=== PATIENT | male | born 1980 | race Caucasian/White ===

== ENCOUNTER 2017-02-11 20:37 | Emergency (ER) | payer MEDICAID ==
[~2017-02-11] VITALS: Ht 177.8 cm; Wt 75.5 kg
[~2017-02-11 20:37] MED LIST: AMLO10TA2 PO; AMLO5TAB4 PO; CALC0.25 PO; CLIN300C93 PO; CLON0.1T12 PO; DARB100V SQ; DARB60VI SQ; DOXY100T PO; ERGO500017 PO; ERTA1VIA IV; FLUC200T4 PO; FURO-93 PO; FURO20TA3 PO; FURO80TA3 PO; HUM100VI SQ-INSULIN; HUM100VI6 SQ-INSULIN; HYDR-3138 PO; HYDR-3240 PO; HYDR-3241 PO; INSU100C SQ-INSULIN; INSU100V13 SC; INSU100V13 SQ; INSU100V8 SQ; INSULIN 70/30 INJ; INSULIN REG INJ; LISI-167 PO; LISI-170 PO; LISI40TA PO; LOSA50TA2 PO; MINO2.5T PO; ONDA4TAB7 PO; OXYC-229 PO; OXYC5TAB3 PO; PANT40TA5 PO; POLY17PO5 PO; POTA20TA14 PO; SEVE800T PO; SEVE800T8 PO; TRAM-28 PO; TRAM50TA2 PO; [UNRECOGNIZED DRUG - OTHER]
[2017-02-11] MEDS ORDERED: MORPHINE SULFATE 4 MG/ML, 1ML ONE ×2 (21:29→21:55)
[2017-02-11] MEDS ORDERED: ONDANSETRON 2MG/ML, 2ML ONE (21:29)
[2017-02-11] MEDS ORDERED: ONDANSETRON 2MG/ML, 2ML IVPush ONE (21:30)
[2017-02-11] MEDS: MORPHINE SULFATE 4 MG/ML, 1ML IVPush PRN ×2 (21:33→22:10)
[2017-02-11 21:43] LABS: BLOOD UREA NITROGEN 50 mg/dL (7-18)
[2017-02-11 21:49] LABS: ASPARTATE AMINO TRANSFERASE 28 U/L (15-37)
[2017-02-11] MEDS ORDERED: LIDOCAINE 1%, 20ML ONE (23:44)
[2017-02-11 23:54] VITALS: BP 139/86
== END 2017-02-12 00:43 | disposition home or self-care (01) ==
LOC: ED 02-12 00:37
DX: R18.8 Other ascites (principal); E11.22 Type 2 diabetes mellitus with diabetic chronic kidney disease; I13.2 Hypertensive heart and chronic kidney disease with heart failure and with stage 5 chronic kidney disease, or end stage renal disease; I50.9 Heart failure, unspecified; Z99.2 Dependence on renal dialysis; Z88.8 Allergy status to other drugs, medicaments and biological substances
CPT/HCPCS: 36415; 49082; 71010; 76700; 80053; 83690; 85025; 96374; 96375; 96376; 99285; J2405

== ENCOUNTER 2017-02-15 03:19 | Inpatient (IN) | payer MEDICAID ==
[~2017-02-15] VITALS: Ht 177.8 cm; Wt 67.9 kg
[2017-02-15] MEDS ORDERED: SODIUM CHLORIDE FLUSH 10ML SYR IVF ONE (04:30)
[2017-02-15] MEDS ORDERED: ONDANSETRON 2MG/ML, 2ML IVPush ONE (05:00)
[2017-02-15] MEDS ORDERED: ASPIRIN 81 MG TABLET CHEW PO ONE (05:00)
[2017-02-15] MEDS: MORPHINE SULFATE 4 MG/ML, 1ML IVPush PRN ×2 (05:08→06:33)
[2017-02-15] MEDS: NITROGLYCERIN SINGLE TAB 0.4 MG SL PRN ×2 (05:08→08:08)
[2017-02-15 05:21] LABS: BLOOD UREA NITROGEN 99 mg/dL (7-18)
[2017-02-15 05:22] LABS: ASPARTATE AMINO TRANSFERASE 18 U/L (15-37)
[2017-02-15 05:31] LABS: IS PT STATUS REG ER OR PRE ER? YES
[2017-02-15] MEDS ORDERED: SODIUM CHLORIDE 0.9% 1,000 ML IV ONE (05:57)
[2017-02-15] MEDS ORDERED: SODIUM POLY SULFONATE UDC 15 GM/60 ML PO ONE (06:00)
[2017-02-15] MEDS ORDERED: ALBUTEROL 0.5%, 20ML NPPB ONE (06:00)
[2017-02-15] MEDS ORDERED: SODIUM BICARB 8.4%, 50ML SYRINGE IVPush ONE (06:00)
[2017-02-15] MEDS ORDERED: INSULIN REGULAR 100 UNITS/ML, 3ML VIAL IVPush ONE (06:00)
[2017-02-15] MEDS ORDERED: DEXTROSE 50%, 50ML SYRINGE IVPush ONE (06:00)
[2017-02-15] MEDS ORDERED: CALCIUM CHLORIDE 10%, 10ML SYR IVPush ONE (06:00)
[2017-02-15] MEDS ORDERED: SODIUM CHLORIDE 0.9% 1,000ML IVBOLUS ONE (06:00)
[2017-02-15] MEDS ORDERED: FUROSEMIDE 40 MG/4 ML IVPush ONE (06:00)
[2017-02-15] MEDS ORDERED: DEXTROSE 50%, 50ML VIAL ONE (06:12)
[2017-02-15] MEDS ORDERED: CALCIUM CHLORIDE 10%, 10ML SYR ONE (06:12)
[2017-02-15] MEDS ORDERED: SODIUM POLYSTYRENE SULFONATE ORAL SUSP ONE (06:13)
[2017-02-15] MEDS ORDERED: FUROSEMIDE 40 MG/4 ML ONE (06:13)
[2017-02-15] MEDS ORDERED: INSULIN REGULAR 100 UNITS/ML, 3ML VIAL ONE (06:14)
[2017-02-15] MEDS ORDERED: MORPHINE SULFATE 4 MG/ML, 1ML ONE (06:32)
[2017-02-15] MEDS ORDERED: ONDANSETRON 2MG/ML, 2ML IVPush PRN (07:30)
[2017-02-15] MEDS ORDERED: BISACODYL 10 MG SUPP PR PRN (07:30)
[2017-02-15] MEDS ORDERED: ACETAMINOPHEN 325 MG TABLET PO PRN (07:30)
[2017-02-15] MEDS ORDERED: ONDANSETRON ODT 4 MG PO PRN (07:30)
[2017-02-15] MEDS ORDERED: DOCUSATE 100 MG CAPSULE PO PRN (07:30)
[2017-02-15] MEDS ORDERED: DIPHENHYDRAMINE 12.5MG/5ML, 10ML UDC PO PRN (07:30)
[2017-02-15] MEDS ORDERED: DIPHENHYDRAMINE 25 MG CAPSULE PO PRN (07:30)
[2017-02-15] MEDS ORDERED: NITROGLYCERIN SINGLE TAB 0.4 MG SL ONE (08:06)
[2017-02-15] MEDS: HEPARIN 5,000 UNITS/ML, 1ML SQ SCH ×2 (09:00→15:08)
[2017-02-15 09:10] VITALS: BP 224/113
[2017-02-15 12:11] LABS: BLOOD UREA NITROGEN 66 mg/dL (7-18)
[2017-02-15 13:14] LABS: HEP B SURF. AB 94.3 mIU/mL (0.0-10.0)
[2017-02-15 14:30] VITALS: BP 148/80
[2017-02-15] MEDS: LABETALOL 5MG/ML, 20ML IVPush PRN ×2 (15:08→23:23)
[2017-02-15] MEDS: INSULIN ASPART 100 UNITS/ML, PEN SQ-INSULIN SCH ×2 (16:00→23:23)
[2017-02-15 17:37] LABS: BLOOD UREA NITROGEN 55 mg/dL (7-18)
[2017-02-15 22:21] VITALS: BP 172/90
[2017-02-15] MEDS ORDERED: OXYcodone IR 5MG TABLET PO PRN (23:00)
[2017-02-16] MEDS: HEPARIN 5,000 UNITS/ML, 1ML SQ SCH ×4 (02:23→22:53)
[2017-02-16 02:24] VITALS: BP 145/78
[2017-02-16] MEDS ORDERED: morphine SULFATE 10 MG/ML, 1ML IVPush ONE (03:30)
[2017-02-16 06:54] VITALS: BP 131/73
[2017-02-16] MEDS: INSULIN ASPART 100 UNITS/ML, PEN SQ-INSULIN SCH ×4 (07:00→20:52)
[2017-02-16] MEDS ORDERED: MORPHINE SULFATE 4 MG/ML, 1ML IVPush ONE ×2 (09:00→21:30)
[2017-02-16] MEDS: AMLODIPINE 5 MG TABLET PO SCH (09:01)
[2017-02-16 14:00] VITALS: BP 128/74
[2017-02-16] MEDS ORDERED: ACETAMINOPHEN 325 MG TABLET PO PRN (19:30)
[2017-02-16] MEDS ORDERED: BISACODYL 10 MG SUPP PR PRN (19:30)
[2017-02-16] MEDS ORDERED: DIPHENHYDRAMINE 12.5MG/5ML, 10ML UDC PO PRN (19:30)
[2017-02-16] MEDS ORDERED: ONDANSETRON ODT 4 MG PO PRN (19:30)
[2017-02-16] MEDS ORDERED: DOCUSATE 100 MG CAPSULE PO PRN (19:30)
[2017-02-16 20:37] VITALS: BP 161/86
[2017-02-16 20:54] VITALS: BP 186/93
[2017-02-16 22:54] VITALS: BP 146/86
[2017-02-17 01:36] VITALS: BP 154/85
[2017-02-17 07:06] VITALS: BP 150/80
[2017-02-17] MEDS: AMLODIPINE 5 MG TABLET PO SCH (10:22)
[2017-02-17] MEDS: HEPARIN 5,000 UNITS/ML, 1ML SQ SCH (10:22)
[2017-02-17] MEDS: INSULIN ASPART 100 UNITS/ML, PEN SQ-INSULIN SCH (10:22)
== END 2017-02-17 11:20 | disposition home or self-care (01) | DRG 291 ==
LOC: ED 05:16 → EDIP 07:07 → 4EST 08:33
PROVIDERS: ADMIT Internal Medicine; ATTEND Internal Medicine
PROC: 5A1D60Z (ICD-10-PCS; principal; 2017-02-15)
DX: I13.2 Hypertensive heart and chronic kidney disease with heart failure and with stage 5 chronic kidney disease, or end stage renal disease (principal); N18.6 End stage renal disease; E10.22 Type 1 diabetes mellitus with diabetic chronic kidney disease; E10.65 Type 1 diabetes mellitus with hyperglycemia; D63.1 Anemia in chronic kidney disease; N25.0 Renal osteodystrophy; I50.9 Heart failure, unspecified; Z89.511 Acquired absence of right leg below knee; Z90.49 Acquired absence of other specified parts of digestive tract; Z79.899 Other long term (current) drug therapy; Z79.4 Long term (current) use of insulin; Z88.8 Allergy status to other drugs, medicaments and biological substances; Z91.19 Patient's noncompliance with other medical treatment and regimen; Z99.2 Dependence on renal dialysis
CPT/HCPCS: 36415; 71010; 80048; 80053; 82962; 83880; 84484; 85025; 85610; 86704; 86706; 87340; 93005; 96374; 96375; J1644; J1815; J1940; J2405; J2270; J7030

== ENCOUNTER 2017-03-22 20:09 | Inpatient (IN) | payer MEDICAID ==
[~2017-03-22] VITALS: Ht 177.8 cm; Wt 70.6 kg
[~2017-03-22 20:09] MED LIST changes: +CLIN300C8 PO; -CLIN300C93 PO; -HYDR-3138 PO; +HYDR-3237 PO; -OXYC-229 PO; +OXYC-307 PO; -SEVE800T PO; +SEVE800T7 PO; -TRAM-28 PO; +TRAM-47 PO
[2017-03-22] MEDS ORDERED: SODIUM CHLORIDE FLUSH 10ML SYR IVF ONE (21:00)
[2017-03-22 21:37] LABS: HEMATOCRIT 38.7 % (39.2-51.8); HEMOGLOBIN 12.6 g/dL (13.7-18.0); WHITE BLOOD COUNT 6.5 x10^3/uL (3.4-10)
[2017-03-22] MEDS ORDERED: HYDROmorphone 1 MG/ML, 1ML ONE (21:47)
[2017-03-22 21:50] LABS: ASPARTATE AMINO TRANSFERASE 24 U/L (15-37); BLOOD UREA NITROGEN 55 mg/dL (7-18)
[2017-03-22 21:57] LABS: IS PT STATUS REG ER OR PRE ER? YES
[2017-03-22] MEDS ORDERED: HYDROmorphone 1 MG/ML, 1ML IM ONE (22:00)
[2017-03-22] MEDS ORDERED: ONDANSETRON ODT 4 MG PO ONE (22:00)
[2017-03-22] MEDS ORDERED: OXYcodone/APAP 5/325MG TABLET PO ONE (22:00)
[2017-03-22] MEDS ORDERED: MORPHINE SULFATE 4 MG/ML, 1ML IVPush PRN (23:00)
[2017-03-22] MEDS ORDERED: ONDANSETRON 2MG/ML, 2ML IVPush PRN ×2 (23:00→23:30)
[2017-03-22] MEDS ORDERED: hydrALAzine 20 MG/ML, 1ML IVPush PRN (23:30)
[2017-03-22] MEDS ORDERED: TEMPLATE NON-FORMULARY MED. (Insulin Lispro** (Humalog**) 0 UNITS) SQ-INSULIN SCH (23:30)
[2017-03-22] MEDS ORDERED: BISACODYL 10 MG SUPP PR PRN (23:30)
[2017-03-22] MEDS: SEVELAMER 800MG TABLET PO SCH (23:30)
[2017-03-22] MEDS ORDERED: ACETAMINOPHEN 325 MG TABLET PO PRN (23:30)
[2017-03-22] MEDS: SODIUM CHLORIDE FLUSH 10ML SYR IVF SCH (23:30)
[2017-03-22] MEDS ORDERED: POLYETHYLENE GLYCOL 17 GM PACKET PO PRN (23:30)
[2017-03-22] MEDS ORDERED: MORPHINE SULFATE 4 MG/ML, 1ML ONE (23:38)
[2017-03-23] MEDS: INSULIN ASPART 100 UNITS/ML, PEN SQ-INSULIN SCH ×5 (00:30→21:00)
[2017-03-23] MEDS ORDERED: ERGOCALCIFEROL 50,000 UNIT CAPSULE PO SCH (00:40)
[2017-03-23 01:38] VITALS: BP 150/90
[2017-03-23] MEDS: HEPARIN 5,000 UNITS/ML, 1ML SQ SCH ×4 (01:46→23:30)
[2017-03-23] MEDS: SEVELAMER 800MG TABLET PO SCH ×4 (01:46→17:43)
[2017-03-23] MEDS: morphine SULFATE 10 MG/ML, 1ML IVPush PRN ×3 (01:46→13:50)
[2017-03-23] MEDS: LOSARTAN 50MG TABLET PO SCH ×2 (01:46→23:22)
[2017-03-23 05:45] LABS: HEMATOCRIT 37.4 % (39.2-51.8); HEMOGLOBIN 12.4 g/dL (13.7-18.0); WHITE BLOOD COUNT 6.5 x10^3/uL (3.4-10)
[2017-03-23 06:06] LABS: ASPARTATE AMINO TRANSFERASE 49 U/L (15-37); BLOOD UREA NITROGEN 57 mg/dL (7-18)
[2017-03-23] MEDS: FUROSEMIDE 20 MG TABLET PO SCH (08:23)
[2017-03-23] MEDS: SENNA/DOCUSATE TABLET PO SCH (08:24)
[2017-03-23] MEDS: SODIUM CHLORIDE FLUSH 10ML SYR IVF SCH ×2 (08:24→23:22)
[2017-03-23 08:29] VITALS: BP 138/83
[2017-03-23] MEDS ORDERED: LIDOCAINE 1%, 20ML ONE (08:54)
[2017-03-23 10:25] LABS: IS PT STATUS REG ER OR PRE ER? NO
[2017-03-23 13:30] VITALS: BP 91/63
[2017-03-23] MEDS: DIPHENHYDRAMINE 25 MG CAPSULE PO PRN (13:52)
[2017-03-23] MEDS ORDERED: OXYcodone/APAP 5/325MG TABLET PO PRN (17:00)
[2017-03-23 20:00] VITALS: BP 122/73
[2017-03-24 01:02] VITALS: BP 154/87
[2017-03-24 05:35] LABS: BLOOD UREA NITROGEN 30 mg/dL (7-18)
[2017-03-24] MEDS: INSULIN ASPART 100 UNITS/ML, PEN SQ-INSULIN SCH ×2 (07:00→12:25)
[2017-03-24 07:05] VITALS: BP 116/70
[2017-03-24] MEDS: SEVELAMER 800MG TABLET PO SCH ×2 (07:57→11:27)
[2017-03-24] MEDS: SENNA/DOCUSATE TABLET PO SCH (07:57)
[2017-03-24] MEDS: HEPARIN 5,000 UNITS/ML, 1ML SQ SCH (07:57)
[2017-03-24] MEDS: FUROSEMIDE 20 MG TABLET PO SCH (07:57)
[2017-03-24] MEDS: SODIUM CHLORIDE FLUSH 10ML SYR IVF SCH (07:57)
[2017-03-24] MEDS: DIPHENHYDRAMINE 25 MG CAPSULE PO PRN (11:34)
[2017-03-24 12:39] VITALS: BP 156/84
[2017-03-25] MEDS ORDERED: CALCITRIOL 0.25 MCG CAPSULE PO SCH
== END 2017-03-24 15:00 | disposition home or self-care (01) | DRG 291 ==
LOC: ED 22:52 → EDIP 23:00 → 4EST 03-23 00:34
PROVIDERS: ADMIT Internal Medicine; ATTEND Internal Medicine
PROC: 0W9G3ZZ Drainage of Peritoneal Cavity, Percutaneous Approach (ICD-10-PCS; 2017-03-23)
PROC: 5A1D00Z (ICD-10-PCS; principal; 2017-03-24)
DX: I13.2 Hypertensive heart and chronic kidney disease with heart failure and with stage 5 chronic kidney disease, or end stage renal disease (principal); N18.6 End stage renal disease; E11.22 Type 2 diabetes mellitus with diabetic chronic kidney disease; R18.8 Other ascites; E44.0 Moderate protein-calorie malnutrition; N25.81 Secondary hyperparathyroidism of renal origin; E87.1 Hypo-osmolality and hyponatremia; K76.0 Fatty (change of) liver, not elsewhere classified; I50.42 Chronic combined systolic (congestive) and diastolic (congestive) heart failure; J98.11 Atelectasis; D63.1 Anemia in chronic kidney disease; N25.0 Renal osteodystrophy; E83.51 Hypocalcemia; Z68.22 Body mass index [BMI] 22.0-22.9, adult; E55.9 Vitamin D deficiency, unspecified; E87.5 Hyperkalemia; G89.29 Other chronic pain; I35.0 Nonrheumatic aortic (valve) stenosis; I73.9 Peripheral vascular disease, unspecified; Z79.4 Long term (current) use of insulin; Z82.49 Family history of ischemic heart disease and other diseases of the circulatory system; Z83.3 Family history of diabetes mellitus; Z86.14 Personal history of Methicillin resistant Staphylococcus aureus infection; Z89.511 Acquired absence of right leg below knee; Z88.8 Allergy status to other drugs, medicaments and biological substances; Z90.49 Acquired absence of other specified parts of digestive tract; Z91.15 Patient's noncompliance with renal dialysis; Z91.19 Patient's noncompliance with other medical treatment and regimen; Z99.2 Dependence on renal dialysis
CPT/HCPCS: 36415; 49083; 71010; 76700; 80048; 80053; 82962; 83036; 83690; 83880; 84484; 85025; 93005; J1170; J1644; J1815; J2405; J3490; J2270; Q0163

== ENCOUNTER 2017-03-26 22:10 | Emergency (ER) | payer MEDICAID ==
[~2017-03-26] VITALS: Ht 177.8 cm; Wt 73.3 kg
[2017-03-26] MEDS ORDERED: HYDROcodone/APAP 5/325 TABLET PO ONE (23:30)
[2017-03-26] MEDS ORDERED: NITROGLYCERIN OINT 2%, 1GM TP ONE ×2 (23:30→23:44)
[2017-03-26 23:33] LABS: HEMOGLOBIN 12.3 g/dL (13.7-18.0); WHITE BLOOD COUNT 6.2 x10^3/uL (3.4-10)
[2017-03-26 23:40] LABS: BLOOD UREA NITROGEN 81 mg/dL (7-18)
[2017-03-26] MEDS ORDERED: HYDROcodone/APAP 5/325 TABLET ONE (23:44)
[2017-03-27] MEDS ORDERED: DEXTROSE 50%, 50ML VIAL IVPush ONE (01:30)
[2017-03-27] MEDS ORDERED: INSULIN REGULAR 100 UNITS/ML, 3ML VIAL IVPush ONE (01:30)
[2017-03-27] MEDS ORDERED: SODIUM POLYSTYRENE SULFONATE ORAL SUSP PO ONE (01:30)
[2017-03-27] MEDS ORDERED: DEXTROSE 50%, 50ML VIAL ONE (01:49)
[2017-03-27] MEDS ORDERED: INSULIN REGULAR 100 UNITS/ML, 3ML VIAL ONE (01:49)
[2017-03-27] MEDS ORDERED: SODIUM POLYSTYRENE SULFONATE ORAL SUSP ONE (01:49)
[2017-03-27 02:15] VITALS: BP 148/85
== END 2017-03-27 02:47 | disposition home or self-care (01) ==
LOC: ED 22:42
DX: R07.89 Other chest pain (principal); E87.5 Hyperkalemia; I12.0 Hypertensive chronic kidney disease with stage 5 chronic kidney disease or end stage renal disease; E11.22 Type 2 diabetes mellitus with diabetic chronic kidney disease; N18.6 End stage renal disease; E11.65 Type 2 diabetes mellitus with hyperglycemia; Z79.4 Long term (current) use of insulin; Z90.49 Acquired absence of other specified parts of digestive tract
CPT/HCPCS: 36415; 71010; 80048; 82040; 85025; 93005; 96374; 96375

== ENCOUNTER 2017-04-01 00:15 | Emergency (ER) | payer MEDICAID ==
[~2017-04-01] VITALS: Ht 177.8 cm; Wt 76.2 kg
[2017-04-01 01:12] LABS: HEMATOCRIT 35.5 % (39.2-51.8); HEMOGLOBIN 11.7 g/dL (13.7-18.0); WHITE BLOOD COUNT 7.5 x10^3/uL (3.4-10)
[2017-04-01 01:23] LABS: BLOOD UREA NITROGEN 81 mg/dL (7-18)
[2017-04-01] MEDS ORDERED: SODIUM POLYSTYRENE SULFONATE ORAL SUSP ONE (01:48)
[2017-04-01 01:50] VITALS: BP 179/94
[2017-04-01] MEDS ORDERED: SODIUM POLYSTYRENE SULFONATE ORAL SUSP PO ONE (02:00)
== END 2017-04-01 02:05 | disposition home or self-care (01) ==
LOC: ED 00:34
DX: E11.65 Type 2 diabetes mellitus with hyperglycemia (principal); E11.22 Type 2 diabetes mellitus with diabetic chronic kidney disease; I12.0 Hypertensive chronic kidney disease with stage 5 chronic kidney disease or end stage renal disease; N18.6 End stage renal disease; Z79.4 Long term (current) use of insulin; Z87.891 Personal history of nicotine dependence; Z89.511 Acquired absence of right leg below knee; Z90.49 Acquired absence of other specified parts of digestive tract; Z99.2 Dependence on renal dialysis
CPT/HCPCS: 36415; 80048; 82040; 85025; 87040; 93005; 99285

== ENCOUNTER 2017-04-05 11:18 | Emergency (ER) | payer MEDICAID ==
[~2017-04-05] VITALS: Ht 177.8 cm; Wt 77.0 kg
[2017-04-05 12:10] LABS: HEMATOCRIT 32.7 % (39.2-51.8); HEMOGLOBIN 10.6 g/dL (13.7-18.0); WHITE BLOOD COUNT 6.9 x10^3/uL (3.4-10)
[2017-04-05 12:16] LABS: BLOOD UREA NITROGEN 50 mg/dL (7-18)
[2017-04-05 12:24] LABS: IS PT STATUS REG ER OR PRE ER? YES
[2017-04-05] MEDS ORDERED: morphine SULFATE 10 MG/ML, 1ML IVPush ONE (12:30)
[2017-04-05] MEDS ORDERED: MORPHINE SULFATE 4 MG/ML, 1ML ONE (12:45)
[2017-04-05 14:08] VITALS: BP 190/102
== END 2017-04-05 14:11 | disposition home or self-care (01) ==
LOC: ED 12:07
DX: I12.9 Hypertensive chronic kidney disease with stage 1 through stage 4 chronic kidney disease, or unspecified chronic kidney disease (principal); E11.22 Type 2 diabetes mellitus with diabetic chronic kidney disease; N18.9 Chronic kidney disease, unspecified; E87.70 Fluid overload, unspecified; Z89.511 Acquired absence of right leg below knee; Z99.2 Dependence on renal dialysis
CPT/HCPCS: 36415; 71010; 80048; 82040; 83735; 83880; 84484; 85025; 85610; 85730; 93005; 93970; 96372; 99285; J2270

== ENCOUNTER 2017-04-06 13:36 | Emergency (ER) | payer MEDICAID ==
[~2017-04-06] VITALS: Ht 177.8 cm; Wt 68.2 kg
[2017-04-06 14:40] LABS: HEMATOCRIT 31.1 % (39.2-51.8); HEMOGLOBIN 10.1 g/dL (13.7-18.0); WHITE BLOOD COUNT 6.5 x10^3/uL (3.4-10)
[2017-04-06 14:50] LABS: ASPARTATE AMINO TRANSFERASE 17 U/L (15-37); BLOOD UREA NITROGEN 66 mg/dL (7-18)
[2017-04-06 15:53] VITALS: BP 144/78
== END 2017-04-06 16:49 | disposition home or self-care (01) ==
LOC: ED 14:31
DX: I13.2 Hypertensive heart and chronic kidney disease with heart failure and with stage 5 chronic kidney disease, or end stage renal disease (principal); E11.22 Type 2 diabetes mellitus with diabetic chronic kidney disease; N18.6 End stage renal disease; I50.9 Heart failure, unspecified; E87.5 Hyperkalemia; G89.29 Other chronic pain; E87.70 Fluid overload, unspecified; Z90.49 Acquired absence of other specified parts of digestive tract; Z99.2 Dependence on renal dialysis
CPT/HCPCS: 36415; 71010; 80053; 83735; 83880; 85025; 93005; 99285

== ENCOUNTER 2017-04-28 22:13 | Inpatient (IN) | payer MEDICAID ==
[~2017-04-28] VITALS: Ht 172.7 cm; Wt 70.2 kg
[2017-04-28] MEDS ORDERED: ONDANSETRON 2MG/ML, 2ML IVPush ONE (22:30)
[2017-04-28] MEDS ORDERED: ONDANSETRON 2MG/ML, 2ML ONE (22:32)
[2017-04-28] MEDS ORDERED: HYDROmorphone 1 MG/ML, 1ML ONE ×2 (22:32→23:48)
[2017-04-28] MEDS: HYDROmorphone 1 MG/ML, 1ML IVPush PRN ×2 (22:37→23:50)
[2017-04-28 22:38] LABS: HEMATOCRIT 30.8 % (39.2-51.8); HEMOGLOBIN 10.3 g/dL (13.7-18.0); WHITE BLOOD COUNT 8.3 x10^3/uL (3.4-10)
[2017-04-28 23:29] LABS: ASPARTATE AMINO TRANSFERASE 21 U/L (15-37); BLOOD UREA NITROGEN 86 mg/dL (7-18)
[2017-04-28] MEDS ORDERED: DEXTROSE 50%, 50ML SYRINGE ONE (23:37)
[2017-04-28] MEDS ORDERED: CALCIUM CHLORIDE 10%, 10ML SYR ONE (23:37)
[2017-04-28] MEDS ORDERED: INSULIN REGULAR 100 UNITS/ML, 3ML VIAL ONE (23:38)
[2017-04-29] VITALS (8 sets, daily range): BP systolic 78–160; BP diastolic 46–81
[2017-04-29] MEDS ORDERED: ALBUTEROL 0.5%, 20ML NPPB ONE
[2017-04-29] MEDS ORDERED: CALCIUM CHLORIDE 10%, 10ML SYR IVPush ONE
[2017-04-29] MEDS ORDERED: INSULIN REGULAR 100 UNITS/ML, 3ML VIAL IVPush ONE
[2017-04-29] MEDS ORDERED: LABETALOL 5MG/ML, 20ML IVPush PRN
[2017-04-29] MEDS ORDERED: ONDANSETRON 2MG/ML, 2ML IVPush PRN
[2017-04-29] MEDS ORDERED: DOCUSATE 100 MG CAPSULE PO PRN
[2017-04-29] MEDS ORDERED: DEXTROSE 50%, 50ML SYRINGE IVPush ONE
[2017-04-29] MEDS: LOSARTAN 50MG TABLET PO SCH ×2 (00:30→21:00)
[2017-04-29] MEDS ORDERED: ERGOCALCIFEROL 50,000 UNIT CAPSULE PO SCH (00:30)
[2017-04-29] MEDS ORDERED: DEXTROSE 50%, 50ML SYRINGE IVPush STA (02:18)
[2017-04-29] MEDS ORDERED: DEXTROSE 50%, 50ML VIAL ONE (02:26)
[2017-04-29] MEDS ORDERED: GLUCAGON 1 MG IM PRN (02:30)
[2017-04-29] MEDS ORDERED: DEXTROSE 50%, 50ML SYRINGE IVPush PRN (02:30)
[2017-04-29] MEDS ORDERED: DEXTROSE 4 GM TAB.CHEW PO PRN (02:30)
[2017-04-29] MEDS: HEPARIN 5,000 UNITS/ML, 1ML SQ SCH ×3 (02:31→20:38)
[2017-04-29] MEDS: HYDROmorphone 2 MG/ML, 1ML IVPush PRN ×4 (05:13→21:56)
[2017-04-29 05:41] LABS: HEMATOCRIT 27.9 % (39.2-51.8); HEMOGLOBIN 9.2 g/dL (13.7-18.0); WHITE BLOOD COUNT 6.8 x10^3/uL (3.4-10)
[2017-04-29 05:52] LABS: BLOOD UREA NITROGEN 35 mg/dL (7-18)
[2017-04-29] MEDS: SEVELAMER 800MG TABLET PO SCH ×3 (07:00→16:51)
[2017-04-29] MEDS: INSULIN ASPART 100 UNITS/ML, PEN SQ-INSULIN SCH ×4 (07:00→20:11)
[2017-04-29] MEDS ORDERED: LIDOCAINE 1%, 20ML ONE (09:00)
[2017-04-29] MEDS: SODIUM CHLORIDE FLUSH 10ML SYR IVF SCH ×2 (09:21→20:38)
[2017-04-29] MEDS: ONDANSETRON 2MG/ML, 2ML IVPush PRN (19:14)
[2017-04-29] MEDS ORDERED: SODIUM CHLORIDE 0.9%, 500ML IVBOLUS ONE (19:30)
[2017-04-30] MEDS: HYDROmorphone 2 MG/ML, 1ML IVPush PRN ×5 (01:25→20:28)
[2017-04-30 01:29] VITALS: BP 137/80
[2017-04-30 01:33] VITALS: BP 128/78
[2017-04-30 05:57] VITALS: BP 152/85
[2017-04-30] MEDS: HEPARIN 5,000 UNITS/ML, 1ML SQ SCH ×3 (05:58→20:30)
[2017-04-30 06:10] LABS: HEMATOCRIT 26.8 % (39.2-51.8); WHITE BLOOD COUNT 5.6 x10^3/uL (3.4-10)
[2017-04-30 06:14] LABS: BLOOD UREA NITROGEN 50 mg/dL (7-18)
[2017-04-30] MEDS: INSULIN ASPART 100 UNITS/ML, PEN SQ-INSULIN SCH ×4 (07:00→20:30)
[2017-04-30] MEDS: SODIUM CHLORIDE FLUSH 10ML SYR IVF SCH ×2 (07:49→20:27)
[2017-04-30] MEDS: SEVELAMER 800MG TABLET PO SCH ×3 (07:49→15:40)
[2017-04-30 08:51] VITALS: BP 151/87
[2017-04-30] MEDS: ONDANSETRON 2MG/ML, 2ML IVPush PRN (10:32)
[2017-04-30] MEDS ORDERED: DARBEPOETIN 100 MCG/ML SQ SCH (11:30)
[2017-04-30 15:11] VITALS: BP 105/61
[2017-04-30] MEDS ORDERED: HYDROmorphone 1 MG/ML, 1ML ONE ×2 (15:21→20:22)
[2017-04-30 19:02] VITALS: BP 141/83
[2017-04-30] MEDS ORDERED: LOSARTAN 50MG TABLET PO SCH (21:00)
[2017-05-01] MEDS ORDERED: HYDROmorphone 1 MG/ML, 1ML ONE ×3 (01:30→09:43)
[2017-05-01] MEDS: HYDROmorphone 2 MG/ML, 1ML IVPush PRN ×3 (01:33→09:45)
[2017-05-01 01:41] VITALS: BP 106/67
[2017-05-01 05:29] LABS: HEMATOCRIT 27.2 % (39.2-51.8); HEMOGLOBIN 9.1 g/dL (13.7-18.0); WHITE BLOOD COUNT 5.9 x10^3/uL (3.4-10)
[2017-05-01] MEDS: HEPARIN 5,000 UNITS/ML, 1ML SQ SCH ×2 (05:37→11:38)
[2017-05-01 05:49] LABS: BLOOD UREA NITROGEN 35 mg/dL (7-18)
[2017-05-01] MEDS: INSULIN ASPART 100 UNITS/ML, PEN SQ-INSULIN SCH ×2 (07:00→11:00)
[2017-05-01] MEDS: SODIUM CHLORIDE FLUSH 10ML SYR IVF SCH (08:01)
[2017-05-01] MEDS: SEVELAMER 800MG TABLET PO SCH ×3 (08:01→12:16)
[2017-05-01 08:15] VITALS: BP 133/78
== END 2017-05-01 16:50 | disposition home or self-care (01) | DRG 432 ==
LOC: ED 23:24 → EDIP 23:56 → 4WST 04-29 00:33
PROVIDERS: ADMIT Hospitalist; ATTEND Hospitalist
PROC: 0W9G3ZZ Drainage of Peritoneal Cavity, Percutaneous Approach (ICD-10-PCS; principal; 2017-04-29)
PROC: 5A1D70Z Performance of Urinary Filtration, Intermittent, Less than 6 Hours Per Day (ICD-10-PCS; 2017-04-29)
PROC: 5A1D70Z Performance of Urinary Filtration, Intermittent, Less than 6 Hours Per Day (ICD-10-PCS; 2017-04-30)
PROC: 5A1D70Z Performance of Urinary Filtration, Intermittent, Less than 6 Hours Per Day (ICD-10-PCS; 2017-05-01)
DX: K74.60 Unspecified cirrhosis of liver (principal); I50.43 Acute on chronic combined systolic (congestive) and diastolic (congestive) heart failure; I13.2 Hypertensive heart and chronic kidney disease with heart failure and with stage 5 chronic kidney disease, or end stage renal disease; E11.21 Type 2 diabetes mellitus with diabetic nephropathy; E11.51 Type 2 diabetes mellitus with diabetic peripheral angiopathy without gangrene; R18.8 Other ascites; E44.0 Moderate protein-calorie malnutrition; N18.6 End stage renal disease; E87.1 Hypo-osmolality and hyponatremia; D63.1 Anemia in chronic kidney disease; E11.22 Type 2 diabetes mellitus with diabetic chronic kidney disease; E87.5 Hyperkalemia; R94.31 Abnormal electrocardiogram [ECG] [EKG]; G54.6 Phantom limb syndrome with pain; G89.29 Other chronic pain; I16.0 Hypertensive urgency; N25.0 Renal osteodystrophy; Z79.4 Long term (current) use of insulin; Z82.49 Family history of ischemic heart disease and other diseases of the circulatory system; Z83.3 Family history of diabetes mellitus; Z68.23 Body mass index [BMI] 23.0-23.9, adult; Z89.511 Acquired absence of right leg below knee; Z90.49 Acquired absence of other specified parts of digestive tract; Z91.19 Patient's noncompliance with other medical treatment and regimen; Z99.2 Dependence on renal dialysis
CPT/HCPCS: 36415; 49083; 80048; 80053; 80069; 82947; 82962; 83690; 83735; 84100; 85025; 85651; 86140; 93005; 96374; 96375; J0881; J1170; J1644; J1815; J2405; J3490; J7040

== ENCOUNTER 2017-05-24 11:58 | Inpatient (IN) | payer MEDICAID ==
[~2017-05-24] VITALS: Ht 177.8 cm; Wt 66.9 kg
[2017-05-24] MEDS ORDERED: SODIUM CHLORIDE FLUSH 10ML SYR IVF ONE (14:00)
[2017-05-24] MEDS ORDERED: CEFTRIAXONE PMX 1GM/50ML 50 ML IVPB ONE (14:00)
[2017-05-24] MEDS ORDERED: ONDANSETRON 2MG/ML, 2ML IVP ONE (14:00)
[2017-05-24 14:39] LABS: HEMATOCRIT 35.7 % (39.2-51.8); HEMOGLOBIN 11.8 g/dL (13.7-18.0)
[2017-05-24 14:48] LABS: BLOOD UREA NITROGEN 51 mg/dL (7-18)
[2017-05-24 14:53] LABS: ASPARTATE AMINO TRANSFERASE 15 U/L (15-37)
[2017-05-24 14:54] LABS: IS PT STATUS REG ER OR PRE ER? YES
[2017-05-24] MEDS ORDERED: ERGOCALCIFEROL 50,000 UNIT CAPSULE PO SCH (16:00)
[2017-05-24] MEDS ORDERED: hydrALAzine 20 MG/ML, 1ML IV PRN ×2 (16:00→19:00)
[2017-05-24] MEDS ORDERED: [UNRECOGNIZED DRUG - REMARK] MC SCH (16:30)
[2017-05-24] MEDS ORDERED: ONDANSETRON ODT 4 MG PO PRN (16:30)
[2017-05-24] MEDS: HYDROmorphone 1 MG/ML, 1ML IV PRN (16:32)
[2017-05-24 17:30] VITALS: BP 216/100
[2017-05-24] MEDS ORDERED: OXYcodone/APAP 5/325MG TABLET PO PRN ×2 (17:30→23:30)
[2017-05-24] MEDS: CARVEDILOL 12.5 MG TABLET PO SCH (17:39)
[2017-05-24] MEDS: SEVELAMER 800MG TABLET PO SCH (17:39)
[2017-05-24] MEDS: CALCITRIOL 0.25 MCG CAPSULE PO SCH (17:39)
[2017-05-24] MEDS: HEPARIN 5,000 UNITS/ML, 1ML SQ SCH (17:39)
[2017-05-24 18:27] VITALS: BP 213/98
[2017-05-24] MEDS: INSULIN ASPART 100 UNITS/ML, PEN SQ-INSULIN SCH (20:46)
[2017-05-24] MEDS ORDERED: MORPHINE SULFATE 4 MG/ML, 1ML IVPush ONE (21:00)
[2017-05-24] MEDS ORDERED: morphine SULFATE 10 MG/ML, 1ML ONE (21:10)
[2017-05-24] MEDS: LOSARTAN 50MG TABLET PO SCH (21:15)
[2017-05-25] MEDS: HEPARIN 5,000 UNITS/ML, 1ML SQ SCH ×3 (00:14→16:40)
[2017-05-25 01:48] VITALS: BP 150/79
[2017-05-25] MEDS: CARVEDILOL 12.5 MG TABLET PO SCH (05:38)
[2017-05-25 05:51] LABS: HEMATOCRIT 31.7 % (39.2-51.8); HEMOGLOBIN 10.6 g/dL (13.7-18.0); WHITE BLOOD COUNT 7.6 x10^3/uL (3.4-10)
[2017-05-25 06:16] LABS: ASPARTATE AMINO TRANSFERASE 12 U/L (15-37); BLOOD UREA NITROGEN 57 mg/dL (7-18)
[2017-05-25] MEDS: INSULIN ASPART 100 UNITS/ML, PEN SQ-INSULIN SCH ×4 (08:07→20:56)
[2017-05-25 08:08] VITALS: BP 133/80
[2017-05-25] MEDS: SEVELAMER 800MG TABLET PO SCH ×3 (08:25→15:58)
[2017-05-25] MEDS ORDERED: DIPHENHYDRAMINE 50 MG/ML, 1ML IVPush ONE (09:00)
[2017-05-25] MEDS: OXYcodone IR 5MG TABLET PO PRN ×2 (15:58→20:56)
[2017-05-25 16:00] VITALS: BP 158/86
[2017-05-25] MEDS ORDERED: ERGOCALCIFEROL 50,000 UNIT CAPSULE PO SCH (16:00)
[2017-05-25 18:18] VITALS: BP 165/85
[2017-05-25] MEDS: CARVEDILOL 25 MG TABLET PO SCH (18:18)
[2017-05-25 19:38] VITALS: BP 154/83
[2017-05-25] MEDS: LOSARTAN 50MG TABLET PO SCH (20:56)
[2017-05-26] VITALS (8 sets, daily range): BP systolic 87–157; BP diastolic 50–82
[2017-05-26] MEDS: OXYcodone IR 5MG TABLET PO PRN ×4 (01:49→21:14)
[2017-05-26] MEDS: HEPARIN 5,000 UNITS/ML, 1ML SQ SCH ×3 (01:49→16:47)
[2017-05-26 05:59] LABS: BLOOD UREA NITROGEN 29 mg/dL (7-18)
[2017-05-26] MEDS: CARVEDILOL 25 MG TABLET PO SCH ×2 (06:00→18:30)
[2017-05-26] MEDS: SEVELAMER 800MG TABLET PO SCH ×3 (07:39→16:47)
[2017-05-26] MEDS: INSULIN ASPART 100 UNITS/ML, PEN SQ-INSULIN SCH ×4 (07:40→21:00)
[2017-05-26] MEDS: ONDANSETRON 2MG/ML, 2ML IVPush PRN ×2 (09:59→18:29)
[2017-05-26] MEDS ORDERED: SODIUM CHLORIDE 0.9%, 250ML IVBOLUS ONE (11:00)
[2017-05-26] MEDS: LOSARTAN 50MG TABLET PO SCH (21:14)
[2017-05-27] MEDS ORDERED: MORPHINE SULFATE 4 MG/ML, 1ML IVPush PRN
[2017-05-27] MEDS ORDERED: morphine SULFATE 10 MG/ML, 1ML ONE (00:07)
[2017-05-27] MEDS: HEPARIN 5,000 UNITS/ML, 1ML SQ SCH ×3 (00:10→17:06)
[2017-05-27 01:14] VITALS: BP 127/73
[2017-05-27] MEDS: OXYcodone IR 5MG TABLET PO PRN ×5 (02:47→21:04)
[2017-05-27 02:48] VITALS: BP 128/77
[2017-05-27] MEDS: CARVEDILOL 25 MG TABLET PO SCH (06:00)
[2017-05-27] MEDS: INSULIN ASPART 100 UNITS/ML, PEN SQ-INSULIN SCH ×4 (07:00→20:58)
[2017-05-27 07:15] VITALS: BP 112/66
[2017-05-27] MEDS: SEVELAMER 800MG TABLET PO SCH ×3 (08:35→17:07)
[2017-05-27] MEDS: ONDANSETRON 2MG/ML, 2ML IVPush PRN (08:35)
[2017-05-27] MEDS: CARVEDILOL 12.5 MG TABLET PO SCH (17:06)
[2017-05-27] MEDS: CALCITRIOL 0.25 MCG CAPSULE PO SCH (17:07)
[2017-05-27] MEDS: GUAIFENESIN 100 MG/5 ML, 10ML UDC PO PRN (18:02)
[2017-05-27 20:31] VITALS: BP 109/67
[2017-05-27 20:59] VITALS: BP 133/66
[2017-05-27] MEDS ORDERED: LOSARTAN 50MG TABLET PO SCH (21:00)
[2017-05-28] MEDS: HEPARIN 5,000 UNITS/ML, 1ML SQ SCH ×2 (00:31→08:39)
[2017-05-28] MEDS: GUAIFENESIN 100 MG/5 ML, 10ML UDC PO PRN (00:35)
[2017-05-28] MEDS: ONDANSETRON 2MG/ML, 2ML IVPush PRN ×3 (02:23→08:39)
[2017-05-28 02:40] VITALS: BP 108/70
[2017-05-28 06:20] VITALS: BP 144/80
[2017-05-28] MEDS: CARVEDILOL 12.5 MG TABLET PO SCH (06:21)
[2017-05-28] MEDS: OXYcodone IR 5MG TABLET PO PRN ×2 (06:21→10:36)
[2017-05-28] MEDS: INSULIN ASPART 100 UNITS/ML, PEN SQ-INSULIN SCH ×2 (07:00→10:47)
[2017-05-28 07:37] VITALS: BP 110/70
[2017-05-28] MEDS: SEVELAMER 800MG TABLET PO SCH ×2 (08:31→10:41)
[2017-05-28] MEDS ORDERED: OXYC5TAB3 PO (10:36)
[2017-05-28] MEDS ORDERED: LOSA50TA2 PO (10:36)
[2017-05-28] MEDS ORDERED: CARV12.543 PO (10:36)
== END 2017-05-28 14:00 | disposition home or self-care (01) | DRG 441 ==
LOC: ED 12:39 → EDIP 15:10 → 4WST 16:26 → DCLOUNGE 05-28 13:46
PROVIDERS: ADMIT Hospitalist; ATTEND Hospitalist
PROC: 0W9G3ZZ Drainage of Peritoneal Cavity, Percutaneous Approach (ICD-10-PCS; principal; 2017-05-24)
DX: K76.6 Portal hypertension (principal); N18.6 End stage renal disease; I13.2 Hypertensive heart and chronic kidney disease with heart failure and with stage 5 chronic kidney disease, or end stage renal disease; E11.21 Type 2 diabetes mellitus with diabetic nephropathy; E11.51 Type 2 diabetes mellitus with diabetic peripheral angiopathy without gangrene; E44.0 Moderate protein-calorie malnutrition; R18.8 Other ascites; E83.39 Other disorders of phosphorus metabolism; N25.0 Renal osteodystrophy; E87.1 Hypo-osmolality and hyponatremia; I50.42 Chronic combined systolic (congestive) and diastolic (congestive) heart failure; N25.81 Secondary hyperparathyroidism of renal origin; D63.1 Anemia in chronic kidney disease; E11.22 Type 2 diabetes mellitus with diabetic chronic kidney disease; Z68.21 Body mass index [BMI] 21.0-21.9, adult; G54.6 Phantom limb syndrome with pain; G89.29 Other chronic pain; H69.90 Unspecified Eustachian tube disorder, unspecified ear; I35.0 Nonrheumatic aortic (valve) stenosis; K74.60 Unspecified cirrhosis of liver; K76.0 Fatty (change of) liver, not elsewhere classified; Z79.4 Long term (current) use of insulin; Z83.3 Family history of diabetes mellitus; Z89.511 Acquired absence of right leg below knee; Z90.49 Acquired absence of other specified parts of digestive tract; Z91.19 Patient's noncompliance with other medical treatment and regimen; Z99.2 Dependence on renal dialysis
CPT/HCPCS: 36415; 49083; 71010; 74022; 76700; 80048; 80053; 82140; 82306; 82962; 83605; 83735; 83880; 83970; 84100; 84443; 84484; 84550; 85025; 87040; 93005; 93306; 99285; J1644; J1815; J2405; J0360; J1200; J7050

== ENCOUNTER 2017-05-31 11:14 | Emergency (ER) | payer MEDICAID ==
[~2017-05-31] VITALS: Ht 177.8 cm; Wt 76.8 kg
[~2017-05-31 11:14] MED LIST changes: +CARV12.543 PO
[2017-05-31 11:16] VITALS: BP 170/86
== END 2017-05-31 13:13 ==
LOC: ED 12:44
DX: I12.0 Hypertensive chronic kidney disease with stage 5 chronic kidney disease or end stage renal disease (principal); E11.22 Type 2 diabetes mellitus with diabetic chronic kidney disease; N18.6 End stage renal disease; Z99.2 Dependence on renal dialysis; E87.5 Hyperkalemia; I10 Essential (primary) hypertension; E11.65 Type 2 diabetes mellitus with hyperglycemia; Z89.511 Acquired absence of right leg below knee; Z90.49 Acquired absence of other specified parts of digestive tract
CPT/HCPCS: 36415; 80047; 99283

== ENCOUNTER 2017-06-10 20:39 | Inpatient (IN) | payer MEDICAID ==
[~2017-06-10] VITALS: Ht 177.8 cm; Wt 64.2 kg
[2017-06-10] MEDS ORDERED: morphine SULFATE 10 MG/ML, 1ML ONE ×2 (22:54→23:53)
[2017-06-10] MEDS ORDERED: ONDANSETRON 2MG/ML, 2ML ONE (22:55)
[2017-06-10] MEDS ORDERED: ONDANSETRON 2MG/ML, 2ML IVPush ONE (23:00)
[2017-06-10] MEDS ORDERED: SODIUM CHLORIDE FLUSH 10ML SYR IVF ONE (23:00)
[2017-06-10] MEDS: MORPHINE SULFATE 4 MG/ML, 1ML IVPush PRN (23:06)
[2017-06-10 23:26] LABS: HEMATOCRIT 32.6 % (39.2-51.8); WHITE BLOOD COUNT 6.6 x10^3/uL (3.4-10)
[2017-06-10 23:36] LABS: ASPARTATE AMINO TRANSFERASE 17 U/L (15-37); BLOOD UREA NITROGEN 68 mg/dL (7-18)
[2017-06-10] MEDS ORDERED: SODIUM BICARB 8.4%, 50ML SYRINGE ONE (23:52)
[2017-06-10] MEDS ORDERED: DEXTROSE 50%, 50ML SYRINGE ONE (23:52)
[2017-06-10] MEDS ORDERED: CALCIUM CHLORIDE 10%, 10ML SYR ONE (23:52)
[2017-06-10] MEDS ORDERED: INSULIN REGULAR 100 UNITS/ML, 3ML VIAL ONE (23:53)
[2017-06-11] MEDS ORDERED: CALCIUM CHLORIDE 10%, 10ML SYR IVPush ONE
[2017-06-11] MEDS ORDERED: INSULIN REGULAR 100 UNITS/ML, 3ML VIAL IVPush ONE
[2017-06-11] MEDS ORDERED: DEXTROSE 50%, 50ML SYRINGE IVPush ONE
[2017-06-11] MEDS ORDERED: SODIUM BICARB 8.4%, 50ML SYRINGE IVPush ONE
[2017-06-11] MEDS: MORPHINE SULFATE 4 MG/ML, 1ML IVPush PRN (00:06)
[2017-06-11] MEDS ORDERED: ACETAMINOPHEN 325 MG TABLET PO PRN (00:30)
[2017-06-11] MEDS ORDERED: ERGOCALCIFEROL 50,000 UNIT CAPSULE PO SCH (00:30)
[2017-06-11] MEDS ORDERED: ONDANSETRON 2MG/ML, 2ML IVPush PRN (00:30)
[2017-06-11] MEDS ORDERED: DEXTROSE 50%, 50ML SYRINGE IVPush PRN (01:00)
[2017-06-11] MEDS ORDERED: GLUCAGON 1 MG IM PRN (01:00)
[2017-06-11] MEDS ORDERED: DEXTROSE 4 GM TAB.CHEW PO PRN (01:00)
[2017-06-11] MEDS ORDERED: DEXTROSE 50%, 50ML SYRINGE ONE (02:42)
[2017-06-11] MEDS ORDERED: HYDROmorphone 1 MG/ML, 1ML ONE (03:35)
[2017-06-11] MEDS: HYDROmorphone 1 MG/ML, 1ML IV PRN ×3 (03:37→19:38)
[2017-06-11] MEDS ORDERED: hydrALAzine 20 MG/ML, 1ML ONE (05:06)
[2017-06-11] MEDS: CARVEDILOL 12.5 MG TABLET PO SCH ×2 (06:00→17:38)
[2017-06-11] MEDS ORDERED: hydrALAzine 20 MG/ML, 1ML IV PRN (06:00)
[2017-06-11 06:29] LABS: ASPARTATE AMINO TRANSFERASE 24 U/L (15-37); BLOOD UREA NITROGEN 69 mg/dL (7-18)
[2017-06-11] MEDS ORDERED: SEVELAMER 800MG TABLET PO SCH (07:00)
[2017-06-11] MEDS: SODIUM CHLORIDE FLUSH 10ML SYR IVF SCH ×2 (09:00→20:17)
[2017-06-11] MEDS: SEVELAMER 800MG TABLET PO SCH ×2 (12:00→17:39)
[2017-06-11 13:52] VITALS: BP 155/96
[2017-06-11 19:36] VITALS: BP 142/84
[2017-06-11] MEDS: LOSARTAN 50MG TABLET PO SCH (20:27)
[2017-06-11 21:00] VITALS: BP 121/74
[2017-06-12] MEDS: HYDROmorphone 1 MG/ML, 1ML IV PRN ×4 (01:07→20:43)
[2017-06-12 02:00] VITALS: BP 111/69
[2017-06-12] MEDS: CARVEDILOL 12.5 MG TABLET PO SCH ×2 (05:59→18:00)
[2017-06-12 06:51] VITALS: BP 114/73
[2017-06-12] MEDS ORDERED: ALBUMIN HUMAN 25% 50 ML IV SCH (07:30)
[2017-06-12] MEDS: SEVELAMER 800MG TABLET PO SCH ×3 (08:11→17:00)
[2017-06-12] MEDS: SODIUM CHLORIDE FLUSH 10ML SYR IVF SCH ×2 (11:52→20:43)
[2017-06-12] MEDS ORDERED: LIDOCAINE 1%, 20ML ONE (13:32)
[2017-06-12 14:56] VITALS: BP 131/73
[2017-06-12] MEDS ORDERED: CALCITRIOL 0.25 MCG CAPSULE PO SCH (18:00)
[2017-06-12 18:39] VITALS: BP 111/64
[2017-06-12 20:38] VITALS: BP 148/80
[2017-06-12] MEDS: LOSARTAN 50MG TABLET PO SCH (20:43)
[2017-06-13 01:05] VITALS: BP 194/97
[2017-06-13] MEDS: HYDROmorphone 1 MG/ML, 1ML IV PRN ×3 (01:13→13:12)
[2017-06-13 01:38] VITALS: BP 126/71
[2017-06-13 05:50] VITALS: BP 163/83
[2017-06-13] MEDS: CARVEDILOL 12.5 MG TABLET PO SCH (05:51)
[2017-06-13 08:00] VITALS: BP 147/78
[2017-06-13] MEDS: SEVELAMER 800MG TABLET PO SCH ×2 (08:10→11:22)
[2017-06-13] MEDS: SODIUM CHLORIDE FLUSH 10ML SYR IVF SCH (08:10)
== END 2017-06-13 14:01 | disposition home or self-care (01) | DRG 640 ==
LOC: ED 23:15 → SUATTDRO 06-11 00:28 → EDIP 06-11 00:55 → 4WST 06-11 10:03 → DCLOUNGE 06-13 13:50
PROVIDERS: ADMIT Hospitalist; ATTEND Hospitalist
PROC: 5A1D70Z Performance of Urinary Filtration, Intermittent, Less than 6 Hours Per Day (ICD-10-PCS; principal; 2017-06-11)
PROC: 0W9G3ZZ Drainage of Peritoneal Cavity, Percutaneous Approach (ICD-10-PCS; 2017-06-12)
DX: E87.5 Hyperkalemia (principal); E43 Unspecified severe protein-calorie malnutrition; I13.2 Hypertensive heart and chronic kidney disease with heart failure and with stage 5 chronic kidney disease, or end stage renal disease; E11.21 Type 2 diabetes mellitus with diabetic nephropathy; N18.6 End stage renal disease; I50.42 Chronic combined systolic (congestive) and diastolic (congestive) heart failure; E11.51 Type 2 diabetes mellitus with diabetic peripheral angiopathy without gangrene; I35.0 Nonrheumatic aortic (valve) stenosis; E11.22 Type 2 diabetes mellitus with diabetic chronic kidney disease; Z79.4 Long term (current) use of insulin; Z89.511 Acquired absence of right leg below knee; Z90.49 Acquired absence of other specified parts of digestive tract; Z91.19 Patient's noncompliance with other medical treatment and regimen; Z99.2 Dependence on renal dialysis
CPT/HCPCS: 36415; 49083; 71010; 80053; 82962; 83735; 83880; 85025; 86704; 86706; 87340; 93005; 96374; 96375; 96376; J1170; J2405; J3490; P9047

== ENCOUNTER 2017-07-08 18:31 | Emergency (ER) | payer MEDICAID ==
[~2017-07-08] VITALS: Ht 177.8 cm; Wt 81.1 kg
[2017-07-08] MEDS ORDERED: SODIUM CHLORIDE FLUSH 10ML SYR IVF ONE (19:00)
[2017-07-08] MEDS ORDERED: ASPIRIN 81 MG TABLET CHEW PO ONE (19:00)
[2017-07-08] MEDS ORDERED: ASPIRIN 81 MG TABLET CHEW ONE (19:59)
[2017-07-08 20:02] LABS: BASOPHILS # (AUTO) 0.04 x10^3/uL (0-0.1); BASOPHILS % (AUTO) 1 % (0-1); EOSINOPHILS # (AUTO) 0.23 x10^3/uL (0-0.4); EOSINOPHILS % (AUTO) 3 % (1-7); LYMPHOCYTES # (AUTO) 1.12 x10^3/uL (1-3.4); LYMPHOCYTES % (AUTO) 17 % (22-44); MD NO; MEAN CORPUSCULAR HEMOGLOBIN 30.8 pg (27.5-34.5); MEAN CORPUSCULAR HGB CONC 33.9 g/dL (33.2-36.2); MEAN CORPUSCULAR VOLUME 90.9 fL (81-97); MEAN PLATELET VOLUME 6.4 fL (7.4-10.4); MONOCYTES % (AUTO) 7 % (2-9); NEUTROPHILS # (AUTO) 4.85 x10^3/uL (1.8-6.8); NEUTROPHILS % (AUTO) 72 % (42-75); PLATELET COUNT 345 x10^3/uL (130-400); RED BLOOD COUNT 3.01 x10^6/uL (4.38-5.82); RED CELL DISTRIBUTION WIDTH 17.4 % (9.4-14.8)
[2017-07-08 20:11] LABS: ALANINE AMINOTRANSFERASE 20 U/L (12-78); ANION GAP 8 mmol/L (5-15); CALCIUM 7.4 mg/dL (8.5-10.1); CHLORIDE 99 mmol/L (98-107)
[2017-07-08 20:15] LABS: ALKALINE PHOSPHATASE 202 U/L (45-117); BILIRUBIN,TOTAL 0.3 mg/dL (0.2-1.0)
[2017-07-08] MEDS ORDERED: INSULIN REGULAR 100 UNITS/ML, 3ML VIAL ONE (20:57)
[2017-07-08] MEDS ORDERED: DEXTROSE 50%, 50ML SYRINGE ONE (20:57)
[2017-07-08] MEDS ORDERED: ALBUTEROL 0.5%, 20ML NPPB ONE (21:00)
[2017-07-08] MEDS ORDERED: INSULIN REGULAR 100 UNITS/ML, 3ML VIAL IVPush ONE (21:00)
[2017-07-08] MEDS ORDERED: DEXTROSE 50%, 50ML SYRINGE IVPush ONE (21:00)
[2017-07-08] MEDS ORDERED: OXYcodone/APAP 10/325MG TABLET PO ONE (21:30)
[2017-07-08] MEDS ORDERED: OXYcodone/APAP 10/325MG TABLET ONE (21:37)
[2017-07-08 21:47] VITALS: BP 172/98
== END 2017-07-08 21:49 | disposition home or self-care (01) ==
LOC: ED 21:07
DX: N18.4 Chronic kidney disease, stage 4 (severe) (principal); N18.6 End stage renal disease; I12.0 Hypertensive chronic kidney disease with stage 5 chronic kidney disease or end stage renal disease; E11.22 Type 2 diabetes mellitus with diabetic chronic kidney disease; Z99.2 Dependence on renal dialysis; Z90.49 Acquired absence of other specified parts of digestive tract; Z89.511 Acquired absence of right leg below knee
CPT/HCPCS: 36415; 71020; 80053; 83880; 84484; 85025; 93005; 96374; 96375

== ENCOUNTER 2017-07-10 07:19 | Emergency (ER) | payer MEDICAID ==
[~2017-07-10] VITALS: Ht 177.8 cm; Wt 81.8 kg
[2017-07-10 08:28] LABS: BASOPHILS # (AUTO) 0.05 x10^3/uL (0-0.1); BASOPHILS % (AUTO) 1 % (0-1); EOSINOPHILS % (AUTO) 0 % (1-7); LYMPHOCYTES # (AUTO) 1.14 x10^3/uL (1-3.4); LYMPHOCYTES % (AUTO) 17 % (22-44); MD NO; MEAN CORPUSCULAR HEMOGLOBIN 30.5 pg (27.5-34.5); MEAN CORPUSCULAR HGB CONC 33.5 g/dL (33.2-36.2); MEAN PLATELET VOLUME 6.4 fL (7.4-10.4); MONOCYTES # (AUTO) 0.63 x10^3/uL (0.2-0.8); MONOCYTES % (AUTO) 10 % (2-9); NEUTROPHILS # (AUTO) 4.82 x10^3/uL (1.8-6.8); NEUTROPHILS % (AUTO) 73 % (42-75); PLATELET COUNT 372 x10^3/uL (130-400); RED BLOOD COUNT 2.94 x10^6/uL (4.38-5.82); RED CELL DISTRIBUTION WIDTH 17.8 % (9.4-14.8)
[2017-07-10 08:40] LABS: ALANINE AMINOTRANSFERASE 15 U/L (12-78); ALBUMIN 1.9 g/dL (3.4-5.0); ANION GAP 11 mmol/L (5-15); CALCIUM 7.1 mg/dL (8.5-10.1); CHLORIDE 97 mmol/L (98-107)
[2017-07-10 08:42] LABS: ALKALINE PHOSPHATASE 183 U/L (45-117); BILIRUBIN,TOTAL 0.4 mg/dL (0.2-1.0)
[2017-07-10] MEDS ORDERED: SODIUM BICARB 8.4%, 50ML SYRINGE IVPush ONE (09:30)
[2017-07-10] MEDS ORDERED: INSULIN REGULAR 100 UNITS/ML, 3ML VIAL IVPush ONE (09:30)
[2017-07-10] MEDS ORDERED: DEXTROSE 50%, 50ML SYRINGE IVPush ONE (09:30)
[2017-07-10] MEDS ORDERED: SODIUM BICARB 8.4%, 50ML SYRINGE ONE (10:43)
[2017-07-10] MEDS ORDERED: INSULIN REGULAR 100 UNITS/ML, 3ML VIAL ONE (10:43)
[2017-07-10] MEDS ORDERED: DEXTROSE 50%, 50ML SYRINGE ONE (10:43)
[2017-07-10 11:11] VITALS: BP 176/89
== END 2017-07-10 11:34 | disposition home or self-care (01) ==
LOC: ED 11:21
DX: E11.22 Type 2 diabetes mellitus with diabetic chronic kidney disease (principal); E11.65 Type 2 diabetes mellitus with hyperglycemia; E87.5 Hyperkalemia; E87.6 Hypokalemia; I12.0 Hypertensive chronic kidney disease with stage 5 chronic kidney disease or end stage renal disease; N18.6 End stage renal disease; I50.9 Heart failure, unspecified; I25.2 Old myocardial infarction; Z99.2 Dependence on renal dialysis; Z90.49 Acquired absence of other specified parts of digestive tract
CPT/HCPCS: 36415; 71020; 80053; 83690; 85025; 93005; 96374; 96375

== ENCOUNTER 2017-07-11 18:44 | Emergency (ER) | payer MEDICAID ==
[~2017-07-11] VITALS: Ht 177.8 cm; Wt 78.8 kg
[2017-07-11] MEDS ORDERED: SODIUM CHLORIDE FLUSH 10ML SYR IVF ONE (19:30)
[2017-07-11 19:44] LABS: BASOPHILS # (AUTO) 0.06 x10^3/uL (0-0.1); BASOPHILS % (AUTO) 1 % (0-1); EOSINOPHILS # (AUTO) 0.13 x10^3/uL (0-0.4); EOSINOPHILS % (AUTO) 2 % (1-7); LYMPHOCYTES % (AUTO) 22 % (22-44); MD NO; MEAN CORPUSCULAR HEMOGLOBIN 30.7 pg (27.5-34.5); MEAN CORPUSCULAR HGB CONC 33.4 g/dL (33.2-36.2); MEAN CORPUSCULAR VOLUME 91.9 fL (81-97); MEAN PLATELET VOLUME 6.2 fL (7.4-10.4); MONOCYTES # (AUTO) 0.63 x10^3/uL (0.2-0.8); MONOCYTES % (AUTO) 11 % (2-9); NEUTROPHILS # (AUTO) 3.83 x10^3/uL (1.8-6.8); NEUTROPHILS % (AUTO) 64 % (42-75); PLATELET COUNT 373 x10^3/uL (130-400); RED BLOOD COUNT 3.06 x10^6/uL (4.38-5.82); RED CELL DISTRIBUTION WIDTH 17.5 % (9.4-14.8)
[2017-07-11 19:51] LABS: ALANINE AMINOTRANSFERASE 17 U/L (12-78); ALBUMIN 1.9 g/dL (3.4-5.0); ANION GAP 9 mmol/L (5-15); CALCIUM 7.8 mg/dL (8.5-10.1); CHLORIDE 101 mmol/L (98-107); CREATININE 6.66 mg/dL (0.7-1.3)
[2017-07-11 20:08] LABS: ALKALINE PHOSPHATASE 186 U/L (45-117); BILIRUBIN,TOTAL 0.3 mg/dL (0.2-1.0)
[2017-07-11 21:58] VITALS: BP 134/80
[2017-07-11] MEDS ORDERED: OXYcodone IR 5MG TABLET PO ONE (22:00)
[2017-07-11] MEDS ORDERED: OXYcodone IR 5MG TABLET ONE (22:20)
== END 2017-07-11 22:26 | disposition home or self-care (01) ==
LOC: ED 19:29
DX: R18.8 Other ascites (principal); R10.84 Generalized abdominal pain; E11.22 Type 2 diabetes mellitus with diabetic chronic kidney disease; I13.2 Hypertensive heart and chronic kidney disease with heart failure and with stage 5 chronic kidney disease, or end stage renal disease; N18.6 End stage renal disease; I50.9 Heart failure, unspecified; Z99.2 Dependence on renal dialysis
CPT/HCPCS: 36415; 49083; 71010; 80053; 83690; 83880; 85025; 93005; 99285

== ENCOUNTER 2017-07-22 17:15 | Emergency (ER) | payer MEDICAID ==
[~2017-07-22] VITALS: Ht 177.8 cm; Wt 68.2 kg
[2017-07-22] MEDS ORDERED: ONDANSETRON 2MG/ML, 2ML ONE (17:41)
[2017-07-22] MEDS ORDERED: MORPHINE SULFATE 4 MG/ML, 1ML ONE ×2 (17:41→18:28)
[2017-07-22] MEDS: MORPHINE SULFATE 4 MG/ML, 1ML IVPush PRN ×2 (17:50→18:31)
[2017-07-22] MEDS ORDERED: SODIUM CHLORIDE FLUSH 10ML SYR IVF ONE (18:00)
[2017-07-22] MEDS ORDERED: ONDANSETRON 2MG/ML, 2ML IVPush ONE (18:00)
[2017-07-22 18:31] VITALS: BP 121/74
[2017-07-22 18:39] LABS: BASOPHILS # (AUTO) 0.05 x10^3/uL (0-0.1); BASOPHILS % (AUTO) 1 % (0-1); EOSINOPHILS # (AUTO) 0.17 x10^3/uL (0-0.4); EOSINOPHILS % (AUTO) 3 % (1-7); LYMPHOCYTES # (AUTO) 0.89 x10^3/uL (1-3.4); LYMPHOCYTES % (AUTO) 17 % (22-44); MD NO; MEAN CORPUSCULAR HEMOGLOBIN 30.1 pg (27.5-34.5); MEAN CORPUSCULAR HGB CONC 33.2 g/dL (33.2-36.2); MEAN CORPUSCULAR VOLUME 90.5 fL (81-97); MEAN PLATELET VOLUME 6.8 fL (7.4-10.4); MONOCYTES # (AUTO) 0.46 x10^3/uL (0.2-0.8); MONOCYTES % (AUTO) 9 % (2-9); NEUTROPHILS # (AUTO) 3.59 x10^3/uL (1.8-6.8); NEUTROPHILS % (AUTO) 70 % (42-75); PLATELET COUNT 334 x10^3/uL (130-400); RED BLOOD COUNT 3.43 x10^6/uL (4.38-5.82); RED CELL DISTRIBUTION WIDTH 16.7 % (9.4-14.8)
[2017-07-22 18:48] LABS: ALBUMIN 1.7 g/dL (3.4-5.0); ANION GAP 17 mmol/L (5-15); CALCIUM 6.4 mg/dL (8.5-10.1); CHLORIDE 104 mmol/L (98-107)
[2017-07-22 18:53] LABS: ALANINE AMINOTRANSFERASE 9 U/L (12-78); ALKALINE PHOSPHATASE 152 U/L (45-117); BILIRUBIN,TOTAL 0.4 mg/dL (0.2-1.0); TOTAL PROTEIN 6.1 g/dL (6.4-8.2)
== END 2017-07-22 20:00 | disposition home or self-care (01) ==
LOC: ED 19:54
DX: R10.84 Generalized abdominal pain (principal); R18.8 Other ascites; R79.89 Other specified abnormal findings of blood chemistry; I13.2 Hypertensive heart and chronic kidney disease with heart failure and with stage 5 chronic kidney disease, or end stage renal disease; E11.22 Type 2 diabetes mellitus with diabetic chronic kidney disease; N18.6 End stage renal disease; I50.9 Heart failure, unspecified; Z99.2 Dependence on renal dialysis; Z89.511 Acquired absence of right leg below knee; Z90.49 Acquired absence of other specified parts of digestive tract
CPT/HCPCS: 36415; 71045; 74176; 80053; 83690; 85025; 93005; 96374; 96375; 96376; 99285; J2405

== ENCOUNTER 2017-07-28 19:33 | Emergency (ER) | payer MEDICAID ==
[~2017-07-28] VITALS: Ht 177.8 cm; Wt 78.0 kg
[2017-07-28] MEDS ORDERED: SODIUM CHLORIDE FLUSH 10ML SYR IVF ONE (20:00)
[2017-07-28 20:17] LABS: BASOPHILS # (AUTO) 0.09 x10^3/uL (0-0.1); BASOPHILS % (AUTO) 1 % (0-1); EOSINOPHILS # (AUTO) 0.19 x10^3/uL (0-0.4); EOSINOPHILS % (AUTO) 3 % (1-7); LYMPHOCYTES # (AUTO) 0.98 x10^3/uL (1-3.4); LYMPHOCYTES % (AUTO) 13 % (22-44); MD NO; MEAN CORPUSCULAR HEMOGLOBIN 29.2 pg (27.5-34.5); MEAN CORPUSCULAR HGB CONC 32.5 g/dL (33.2-36.2); MEAN CORPUSCULAR VOLUME 89.9 fL (81-97); MEAN PLATELET VOLUME 6.6 fL (7.4-10.4); MONOCYTES % (AUTO) 7 % (2-9); NEUTROPHILS # (AUTO) 5.58 x10^3/uL (1.8-6.8); NEUTROPHILS % (AUTO) 76 % (42-75); PLATELET COUNT 403 x10^3/uL (130-400); RED BLOOD COUNT 3.62 x10^6/uL (4.38-5.82)
[2017-07-28] MEDS ORDERED: LISI1TAB3 PO (20:20)
[2017-07-28 20:26] LABS: ALANINE AMINOTRANSFERASE 13 U/L (12-78); ALBUMIN 1.7 g/dL (3.4-5.0); ANION GAP 9 mmol/L (5-15); CHLORIDE 100 mmol/L (98-107); CREATININE 9.32 mg/dL (0.7-1.3)
[2017-07-28 20:28] LABS: ALKALINE PHOSPHATASE 267 U/L (45-117); BILIRUBIN,TOTAL 0.3 mg/dL (0.2-1.0); TOTAL PROTEIN 6.5 g/dL (6.4-8.2)
[2017-07-28] MEDS ORDERED: ONDANSETRON 2MG/ML, 2ML IVPush ONE (21:00)
[2017-07-28] MEDS ORDERED: HYDROmorphone 1 MG/ML, 1ML IV PRN (21:00)
[2017-07-28 21:33] VITALS: BP 151/81
== END 2017-07-28 22:30 | disposition home or self-care (01) ==
LOC: ED 20:44
DX: E87.70 Fluid overload, unspecified (principal); R18.8 Other ascites; E83.41 Hypermagnesemia; I13.2 Hypertensive heart and chronic kidney disease with heart failure and with stage 5 chronic kidney disease, or end stage renal disease; E11.22 Type 2 diabetes mellitus with diabetic chronic kidney disease; N18.6 End stage renal disease; I50.9 Heart failure, unspecified; Z99.2 Dependence on renal dialysis; Z79.4 Long term (current) use of insulin; E11.65 Type 2 diabetes mellitus with hyperglycemia; E11.40 Type 2 diabetes mellitus with diabetic neuropathy, unspecified; Z89.511 Acquired absence of right leg below knee
CPT/HCPCS: 36415; 71045; 80053; 83735; 84100; 85025; 93005; 99285

== ENCOUNTER 2017-09-15 19:36 | Inpatient (IN) | payer MEDICAID ==
[~2017-09-15] VITALS: Ht 177.8 cm; Wt 76.6 kg
[~2017-09-15 19:36] MED LIST changes: +LISI1TAB3 PO
[2017-09-15] MEDS ORDERED: ONDANSETRON 2MG/ML, 2ML IVPush ONE (20:00)
[2017-09-15] MEDS ORDERED: MORPHINE SULFATE 4 MG/ML, 1ML IVPush PRN (20:00)
[2017-09-15] MEDS ORDERED: ONDANSETRON 2MG/ML, 2ML ONE (20:09)
[2017-09-15] MEDS ORDERED: MORPHINE SULFATE 4 MG/ML, 1ML ONE ×2 (20:09→21:33)
[2017-09-15] MEDS: MORPHINE SULFATE 4 MG/ML, 1ML IVPush PRN ×2 (20:10→21:41)
[2017-09-15 20:16] LABS: BASOPHILS # (AUTO) 0.06 x10^3/uL (0-0.1); BASOPHILS % (AUTO) 1 % (0-1); EOSINOPHILS % (AUTO) 16 % (1-7); LYMPHOCYTES # (AUTO) 0.88 x10^3/uL (1-3.4); LYMPHOCYTES % (AUTO) 15 % (22-44); MD NO; MEAN CORPUSCULAR HEMOGLOBIN 31.1 pg (27.5-34.5); MEAN CORPUSCULAR HGB CONC 34.3 g/dL (33.2-36.2); MEAN CORPUSCULAR VOLUME 90.7 fL (81-97); MEAN PLATELET VOLUME 6.1 fL (7.4-10.4); MONOCYTES # (AUTO) 0.37 x10^3/uL (0.2-0.8); MONOCYTES % (AUTO) 6 % (2-9); NEUTROPHILS # (AUTO) 3.62 x10^3/uL (1.8-6.8); NEUTROPHILS % (AUTO) 62 % (42-75); PLATELET COUNT 448 x10^3/uL (130-400); RED CELL DISTRIBUTION WIDTH 16.8 % (9.4-14.8)
[2017-09-15 20:27] LABS: ANION GAP 14 mmol/L (5-15); CALCIUM 7.8 mg/dL (8.5-10.1); CHLORIDE 101 mmol/L (98-107)
[2017-09-15] MEDS ORDERED: OXYcodone IR 5MG TABLET PO ONE (20:30)
[2017-09-15 20:31] LABS: TROPONIN I 0.093 ng/mL (0.000-0.045)
[2017-09-15 20:56] LABS: INTERNATIONAL NORMALIZED RATIO 5.16 (0.93-1.1)
[2017-09-15] MEDS ORDERED: CARV3.122 PO (21:19)
[2017-09-15] MEDS ORDERED: CHOL500045 PO (21:19)
[2017-09-15] MEDS ORDERED: ASPI-650 PO (21:19)
[2017-09-15] MEDS ORDERED: SEVE800T7 PO (21:19)
[2017-09-15] MEDS ORDERED: INSU100V8 SQ (21:19)
[2017-09-15] MEDS ORDERED: CALC667C PO (21:19)
[2017-09-15] MEDS ORDERED: WARF4TAB7 PO (21:19)
[2017-09-15] MEDS ORDERED: LOSA25TA5 PO (21:19)
[2017-09-15] MEDS ORDERED: LIDOCAINE 1%, 20ML ONE (21:29)
[2017-09-15] MEDS ORDERED: DEXTROSE 50%, 50ML SYRINGE IVPush ONE (22:00)
[2017-09-15] MEDS ORDERED: INSULIN REGULAR 100 UNITS/ML, 3ML VIAL IVPush ONE (22:00)
[2017-09-16] MEDS ORDERED: LABETALOL 5MG/ML, 20ML IVPush PRN (01:00)
[2017-09-16] MEDS ORDERED: ACETAMINOPHEN 325 MG TABLET PO PRN (01:00)
[2017-09-16] MEDS ORDERED: OXYcodone IR 5MG TABLET PO PRN (01:00)
[2017-09-16] MEDS ORDERED: POLYETHYLENE GLYCOL 17 GM PACKET PO PRN (01:00)
[2017-09-16] MEDS ORDERED: hydrALAzine 20 MG/ML, 1ML IVPush PRN (01:00)
[2017-09-16] MEDS ORDERED: BISACODYL 10 MG SUPP PR PRN (01:00)
[2017-09-16 01:02] LABS: BILIRUBIN, DIRECT 0.2 mg/dL (0.1-0.2)
[2017-09-16 01:04] LABS: BILIRUBIN,INDIRECT 0.1 mg/dL (0.0-2.0); BILIRUBIN,TOTAL 0.3 mg/dL (0.2-1.0); TOTAL PROTEIN 6.5 g/dL (6.4-8.2)
[2017-09-16] MEDS ORDERED: morphine SULFATE 10 MG/ML, 1ML ONE (01:15)
[2017-09-16] MEDS: morphine SULFATE 10 MG/ML, 1ML IVPush PRN ×5 (01:23→23:15)
[2017-09-16 01:36] LABS: FREE T4 (FREE THYROXINE) 0.97 ng/dL (0.76-1.46); TROPONIN I 0.084 ng/mL (0.000-0.045)
[2017-09-16 01:45] LABS: HEMOGLOBIN A1C 5.2 % (4.2-6.3)
[2017-09-16 06:48] LABS: TROPONIN I 0.063 ng/mL (0.000-0.045)
[2017-09-16] MEDS: INSULIN LISPRO 100 UNITS/ML, PEN SQ-INSULIN SCH ×4 (07:00→20:38)
[2017-09-16] MEDS ORDERED: MORPHINE SULFATE 4 MG/ML, 1ML ONE ×2 (07:51→13:30)
[2017-09-16] MEDS: CARVEDILOL 3.125 MG TABLET PO SCH ×2 (08:18→19:42)
[2017-09-16] MEDS: LOSARTAN 25MG TABLET PO SCH (08:18)
[2017-09-16] MEDS: SENNA/DOCUSATE TABLET PO SCH (09:00)
[2017-09-16] MEDS ORDERED: ASPIRIN 325 MG TABLET EC ONE (09:29)
[2017-09-16] MEDS ORDERED: SENNA/DOCUSATE TABLET ONE (09:30)
[2017-09-16] MEDS: CALCIUM ACETATE 667 MG CAPSULE PO SCH ×3 (09:32→19:55)
[2017-09-16] MEDS: ASPIRIN 325 MG TABLET EC PO SCH (09:33)
[2017-09-16] MEDS: SEVELAMER HCL 800MG TABLET PO SCH ×3 (09:33→16:00)
[2017-09-16] MEDS ORDERED: ONDANSETRON 2MG/ML, 2ML ONE (09:35)
[2017-09-16] MEDS: ONDANSETRON 2MG/ML, 2ML IVPush PRN (09:36)
[2017-09-16 09:56] LABS: INTERNATIONAL NORMALIZED RATIO 5.24 (0.93-1.1); PROTHROMBIN TIME 52.8 Seconds (9.6-11.5)
[2017-09-16] MEDS: CALCITRIOL 0.25 MCG CAPSULE PO SCH (10:43)
[2017-09-16] MEDS ORDERED: OXYcodone IR 5MG TABLET ONE (12:15)
[2017-09-16 14:22] VITALS: BP 162/82
[2017-09-16] MEDS ORDERED: HOLD MEDICATION WARFARIN MC PRN (18:00)
[2017-09-16 19:19] VITALS: BP 124/79
[2017-09-17 00:05] VITALS: BP 117/66
[2017-09-17] MEDS: morphine SULFATE 10 MG/ML, 1ML IVPush PRN ×4 (04:57→22:44)
[2017-09-17 05:31] LABS: ALANINE AMINOTRANSFERASE 19 U/L (12-78); ALBUMIN 1.7 g/dL (3.4-5.0); ANION GAP 12 mmol/L (5-15); CALCIUM 7.9 mg/dL (8.5-10.1); CHLORIDE 98 mmol/L (98-107); CHOLESTEROL, TOTAL 123 mg/dL (140-239)
[2017-09-17 05:38] LABS: ALKALINE PHOSPHATASE 250 U/L (45-117); BILIRUBIN,TOTAL 0.3 mg/dL (0.2-1.0); CHOL/HDL RATIO 4.1; CREATININE 8.43 mg/dL (0.7-1.3); HDL CHOL % 24 % (26-37); HDL CHOLESTEROL (DIRECT) 30 mg/dL (40-60); LDL CHOLESTEROL,CALCULATED 71 mg/dL (54-169); LDL/HDL RATIO 2.4 (0.5-3.0); MEAN CORPUSCULAR HEMOGLOBIN 30.5 pg (27.5-34.5); MEAN CORPUSCULAR VOLUME 89.8 fL (81-97); MEAN PLATELET VOLUME 6.5 fL (7.4-10.4); PLATELET COUNT 367 x10^3/uL (130-400); RED BLOOD COUNT 2.51 x10^6/uL (4.38-5.82); RED CELL DISTRIBUTION WIDTH 16.8 % (9.4-14.8); TOTAL PROTEIN 5.7 g/dL (6.4-8.2); TRIGLYCERIDES 111 mg/dL (50-200); VLDL CHOLESTEROL 22 mg/dL (0-25)
[2017-09-17 06:00] LABS: BASOPHILS # (AUTO) 0.04 x10^3/uL (0-0.1); BASOPHILS % (AUTO) 1 % (0-1); EOSINOPHILS # (AUTO) 0.62 x10^3/uL (0-0.4); EOSINOPHILS % (AUTO) 14 % (1-7); LYMPHOCYTES # (AUTO) 0.92 x10^3/uL (1-3.4); LYMPHOCYTES % (AUTO) 21 % (22-44); MD SCAN; MONOCYTES # (AUTO) 0.39 x10^3/uL (0.2-0.8); MONOCYTES % (AUTO) 9 % (2-9); NEUTROPHILS # (AUTO) 2.45 x10^3/uL (1.8-6.8); NEUTROPHILS % (AUTO) 56 % (42-75)
[2017-09-17 06:40] VITALS: BP 111/72
[2017-09-17] MEDS: SENNA/DOCUSATE TABLET PO SCH (07:44)
[2017-09-17] MEDS: CARVEDILOL 3.125 MG TABLET PO SCH ×2 (07:57→22:44)
[2017-09-17] MEDS: CALCITRIOL 0.25 MCG CAPSULE PO SCH (07:57)
[2017-09-17] MEDS: SEVELAMER HCL 800MG TABLET PO SCH ×3 (07:57→17:00)
[2017-09-17] MEDS: LOSARTAN 25MG TABLET PO SCH (07:57)
[2017-09-17] MEDS: ASPIRIN 325 MG TABLET EC PO SCH (07:58)
[2017-09-17] MEDS ORDERED: CALCIUM ACETATE 667 MG CAPSULE PO SCH (08:00)
[2017-09-17 08:33] LABS: INTERNATIONAL NORMALIZED RATIO 4.79 (0.93-1.1); PROTHROMBIN TIME 48.3 Seconds (9.6-11.5)
[2017-09-17] MEDS: INSULIN LISPRO 100 UNITS/ML, PEN SQ-INSULIN SCH ×4 (08:56→21:00)
[2017-09-17] MEDS: ONDANSETRON 2MG/ML, 2ML IVPush PRN ×2 (11:15→18:18)
[2017-09-17] MEDS ORDERED: HOLD COUMADIN MC PRN (12:30)
[2017-09-17 12:34] VITALS: BP 110/66
[2017-09-17 18:30] VITALS: BP 126/67
[2017-09-18 01:34] VITALS: BP 126/76
[2017-09-18] MEDS: morphine SULFATE 10 MG/ML, 1ML IVPush PRN ×3 (04:44→19:32)
[2017-09-18 06:07] LABS: BASOPHILS # (AUTO) 0.03 x10^3/uL (0-0.1); BASOPHILS % (AUTO) 1 % (0-1); EOSINOPHILS # (AUTO) 0.61 x10^3/uL (0-0.4); EOSINOPHILS % (AUTO) 14 % (1-7); LYMPHOCYTES % (AUTO) 20 % (22-44); MD NO; MEAN CORPUSCULAR HEMOGLOBIN 30.5 pg (27.5-34.5); MEAN CORPUSCULAR HGB CONC 33.8 g/dL (33.2-36.2); MEAN CORPUSCULAR VOLUME 90.3 fL (81-97); MONOCYTES # (AUTO) 0.45 x10^3/uL (0.2-0.8); MONOCYTES % (AUTO) 10 % (2-9); NEUTROPHILS # (AUTO) 2.52 x10^3/uL (1.8-6.8); NEUTROPHILS % (AUTO) 56 % (42-75); PLATELET COUNT 360 x10^3/uL (130-400); RED BLOOD COUNT 2.64 x10^6/uL (4.38-5.82)
[2017-09-18 06:15] LABS: INTERNATIONAL NORMALIZED RATIO 4.44 (0.93-1.1); PROTHROMBIN TIME 44.8 Seconds (9.6-11.5)
[2017-09-18 06:19] LABS: ALANINE AMINOTRANSFERASE 14 U/L (12-78); ALBUMIN 1.6 g/dL (3.4-5.0); ANION GAP 8 mmol/L (5-15); CALCIUM 7.8 mg/dL (8.5-10.1); CHLORIDE 97 mmol/L (98-107); CREATININE 6.56 mg/dL (0.7-1.3); IRON LEVEL 31 mcg/dL (65-175)
[2017-09-18 06:22] LABS: % IRON SATURATION 17 % (20-55); ALKALINE PHOSPHATASE 223 U/L (45-117); BILIRUBIN,TOTAL 0.2 mg/dL (0.2-1.0); TOTAL IRON BINDING CAPACITY 183 mcg/dL (250-450); TOTAL PROTEIN 5.7 g/dL (6.4-8.2)
[2017-09-18] MEDS: INSULIN LISPRO 100 UNITS/ML, PEN SQ-INSULIN SCH ×3 (07:00→16:00)
[2017-09-18] MEDS ORDERED: PHARMACY MAY ADJ FOR RENAL FX MC PRN (07:30)
[2017-09-18] MEDS: LOSARTAN 25MG TABLET PO SCH (09:00)
[2017-09-18] MEDS: SENNA/DOCUSATE TABLET PO SCH (09:00)
[2017-09-18 09:01] VITALS: BP 126/69
[2017-09-18] MEDS: SEVELAMER HCL 800MG TABLET PO SCH ×3 (10:09→17:00)
[2017-09-18] MEDS: ASPIRIN 325 MG TABLET EC PO SCH (10:09)
[2017-09-18] MEDS: CALCITRIOL 0.25 MCG CAPSULE PO SCH (10:10)
[2017-09-18] MEDS: CARVEDILOL 3.125 MG TABLET PO SCH (10:10)
[2017-09-18] MEDS ORDERED: CALCIUM ACETATE 667 MG CAPSULE ONE (12:07)
[2017-09-18 12:31] VITALS: BP 116/67
[2017-09-18] MEDS ORDERED: CALCIUM ACETATE 667 MG CAPSULE PO SCH ×2 (16:00)
[2017-09-18 20:00] VITALS: BP 125/73
== END 2017-09-18 20:26 | disposition home or self-care (01) | DRG 291 ==
LOC: ED 22:00 → EDIP 22:01 → 4EST 09-16 13:54
PROVIDERS: ADMIT Internal Medicine; ATTEND Internal Medicine
PROC: 5A1D70Z Performance of Urinary Filtration, Intermittent, Less than 6 Hours Per Day (ICD-10-PCS; 2017-09-16)
PROC: 0W9G3ZZ Drainage of Peritoneal Cavity, Percutaneous Approach (ICD-10-PCS; principal; 2017-09-17)
PROC: 5A1D70Z Performance of Urinary Filtration, Intermittent, Less than 6 Hours Per Day (ICD-10-PCS; 2017-09-17)
PROC: 5A1D70Z Performance of Urinary Filtration, Intermittent, Less than 6 Hours Per Day (ICD-10-PCS; 2017-09-18)
DX: I13.2 Hypertensive heart and chronic kidney disease with heart failure and with stage 5 chronic kidney disease, or end stage renal disease (principal); N18.6 End stage renal disease; E43 Unspecified severe protein-calorie malnutrition; J90 Pleural effusion, not elsewhere classified; E11.22 Type 2 diabetes mellitus with diabetic chronic kidney disease; D68.59 Other primary thrombophilia; E11.51 Type 2 diabetes mellitus with diabetic peripheral angiopathy without gangrene; K76.6 Portal hypertension; I31.3 Pericardial effusion (noninflammatory); R18.8 Other ascites; J98.11 Atelectasis; E87.1 Hypo-osmolality and hyponatremia; Z91.15 Patient's noncompliance with renal dialysis; I35.1 Nonrheumatic aortic (valve) insufficiency; I50.9 Heart failure, unspecified; R04.0 Epistaxis; D63.8 Anemia in other chronic diseases classified elsewhere; E87.5 Hyperkalemia; Z99.2 Dependence on renal dialysis; Z95.2 Presence of prosthetic heart valve; Z86.14 Personal history of Methicillin resistant Staphylococcus aureus infection; Z89.511 Acquired absence of right leg below knee; Z83.3 Family history of diabetes mellitus; Z90.49 Acquired absence of other specified parts of digestive tract; Z88.1 Allergy status to other antibiotic agents; Z79.01 Long term (current) use of anticoagulants
CPT/HCPCS: 36415; 49083; 71045; 80048; 80053; 80061; 80076; 82040; 82728; 82962; 83036; 83540; 83550; 83735; 83880; 84100; 84439; 84443; 84484; 85014; 85018; 85025; 85610; 85730; 93005; 96374; 96375; 96376; J2405; J3490; J1815; J2270

== ENCOUNTER 2017-10-02 19:49 | Inpatient (IN) | payer MEDICAID ==
[~2017-10-02] VITALS: Ht 175.3 cm; Wt 75.2 kg
[~2017-10-02 19:49] MED LIST changes: +ASPI-650 PO; +CALC667C PO; +CARV3.122 PO; +CHOL500045 PO; +LOSA25TA5 PO; +SIMV10TA PO; +WARF1TAB PO; +WARF4TAB7 PO; +WARF5TAB PO
[2017-10-02 20:26] LABS: BASOPHILS # (AUTO) 0.04 x10^3/uL (0-0.1); BASOPHILS % (AUTO) 1 % (0-1); EOSINOPHILS # (AUTO) 0.39 x10^3/uL (0-0.4); EOSINOPHILS % (AUTO) 6 % (1-7); LYMPHOCYTES # (AUTO) 1.07 x10^3/uL (1-3.4); LYMPHOCYTES % (AUTO) 17 % (22-44); MD NO; MEAN CORPUSCULAR HEMOGLOBIN 30.9 pg (27.5-34.5); MEAN CORPUSCULAR HGB CONC 34.1 g/dL (33.2-36.2); MEAN CORPUSCULAR VOLUME 90.7 fL (81-97); MEAN PLATELET VOLUME 6.5 fL (7.4-10.4); MONOCYTES # (AUTO) 0.45 x10^3/uL (0.2-0.8); MONOCYTES % (AUTO) 7 % (2-9); NEUTROPHILS # (AUTO) 4.24 x10^3/uL (1.8-6.8); NEUTROPHILS % (AUTO) 69 % (42-75); PLATELET COUNT 386 x10^3/uL (130-400); RED BLOOD COUNT 3.12 x10^6/uL (4.38-5.82); RED CELL DISTRIBUTION WIDTH 15.7 % (9.4-14.8)
[2017-10-02 20:34] LABS: INTERNATIONAL NORMALIZED RATIO 3.89 (0.93-1.1); PROTHROMBIN TIME 39.4 Seconds (9.6-11.5)
[2017-10-02 20:36] LABS: ALANINE AMINOTRANSFERASE 19 U/L (12-78); ALBUMIN 2.1 g/dL (3.4-5.0); ANION GAP 9 mmol/L (5-15); CALCIUM 8.1 mg/dL (8.5-10.1); CHLORIDE 98 mmol/L (98-107); CREATININE 5.39 mg/dL (0.7-1.3)
[2017-10-02 20:39] LABS: ALKALINE PHOSPHATASE 249 U/L (45-117); BILIRUBIN,TOTAL 0.3 mg/dL (0.2-1.0); TOTAL PROTEIN 6.6 g/dL (6.4-8.2)
[2017-10-02] MEDS ORDERED: LIDOCAINE 2%, 10ML ONE (21:49)
[2017-10-02] MEDS ORDERED: OXYcodone/APAP 5/325MG TABLET ONE (23:37)
[2017-10-03] MEDS ORDERED: OXYcodone/APAP 5/325MG TABLET PO ONE
[2017-10-03 00:39] LABS: BASOPHILS # (AUTO) 0.03 x10^3/uL (0-0.1); BASOPHILS % (AUTO) 1 % (0-1); EOSINOPHILS # (AUTO) 0.44 x10^3/uL (0-0.4); EOSINOPHILS % (AUTO) 8 % (1-7); LYMPHOCYTES # (AUTO) 1.04 x10^3/uL (1-3.4); LYMPHOCYTES % (AUTO) 18 % (22-44); MD NO; MEAN CORPUSCULAR HEMOGLOBIN 30.6 pg (27.5-34.5); MEAN CORPUSCULAR HGB CONC 33.9 g/dL (33.2-36.2); MEAN CORPUSCULAR VOLUME 90.2 fL (81-97); MEAN PLATELET VOLUME 6.8 fL (7.4-10.4); MONOCYTES # (AUTO) 0.62 x10^3/uL (0.2-0.8); MONOCYTES % (AUTO) 11 % (2-9); NEUTROPHILS # (AUTO) 3.55 x10^3/uL (1.8-6.8); NEUTROPHILS % (AUTO) 63 % (42-75); PLATELET COUNT 315 x10^3/uL (130-400); RED BLOOD COUNT 2.73 x10^6/uL (4.38-5.82); RED CELL DISTRIBUTION WIDTH 15.3 % (9.4-14.8)
[2017-10-03] MEDS ORDERED: BISACODYL 10 MG SUPP PR PRN (01:30)
[2017-10-03] MEDS ORDERED: POLYETHYLENE GLYCOL 17 GM PACKET PO PRN (01:30)
[2017-10-03] MEDS ORDERED: ACETAMINOPHEN 325 MG TABLET PO PRN (01:30)
[2017-10-03] MEDS ORDERED: HYDROmorphone 1 MG/ML, 1ML IVPush PRN (01:30)
[2017-10-03] MEDS ORDERED: ONDANSETRON 2MG/ML, 2ML IVPush PRN ×2 (01:30)
[2017-10-03] MEDS ORDERED: DOCUSATE 100 MG CAPSULE PO PRN (01:30)
[2017-10-03] MEDS ORDERED: LABETALOL 5MG/ML, 20ML IVPush PRN (01:30)
[2017-10-03] MEDS ORDERED: hydrALAzine 20 MG/ML, 1ML IVPush PRN (01:30)
[2017-10-03] MEDS ORDERED: OXYcodone IR 5MG TABLET PO PRN (02:00)
[2017-10-03 02:11] VITALS: BP 159/77
[2017-10-03 02:15] LABS: FREE T4 (FREE THYROXINE) 1.12 ng/dL (0.76-1.46); THYROID STIMULATING HORMONE 1.68 mIU/L (0.358-3.740)
[2017-10-03 02:32] VITALS: BP 159/77
[2017-10-03] MEDS: INSULIN LISPRO 100 UNITS/ML, PEN SQ-INSULIN SCH ×4 (07:00→21:00)
[2017-10-03 07:26] VITALS: BP 158/79
[2017-10-03] MEDS: SEVELAMER HCL 800MG TABLET PO SCH ×3 (07:45→16:17)
[2017-10-03] MEDS: CALCIUM ACETATE 667 MG CAPSULE PO SCH ×3 (08:58→22:19)
[2017-10-03] MEDS ORDERED: WARFARIN MECH. VALVE PROTOCOL 2.5 to 3.5 XX SCH (09:00)
[2017-10-03] MEDS: CARVEDILOL 3.125 MG TABLET PO SCH ×2 (09:00→22:19)
[2017-10-03] MEDS: LOSARTAN 25MG TABLET PO SCH (09:00)
[2017-10-03] MEDS: INSULIN GLARGINE 100 UNITS/ML, PEN SQ-INSULIN SCH ×2 (09:00→21:00)
[2017-10-03 11:30] LABS: ANION GAP 8 mmol/L (5-15); CALCIUM 7.5 mg/dL (8.5-10.1); CHLORIDE 99 mmol/L (98-107)
[2017-10-03 14:59] VITALS: BP 180/88
[2017-10-03 15:50] VITALS: BP 146/74
[2017-10-03] MEDS ORDERED: WARFARIN 5 MG TABLET PO-COUM SCH (18:00)
[2017-10-03 19:47] VITALS: BP 162/92
[2017-10-03] MEDS ORDERED: MORPHINE SULFATE 4 MG/ML, 1ML IVPush ONE (21:00)
[2017-10-03] MEDS: SIMVASTATIN 10 MG TABLET PO SCH (22:19)
[2017-10-04 01:11] VITALS: BP 125/69
[2017-10-04 06:58] LABS: BASOPHILS # (AUTO) 0.04 x10^3/uL (0-0.1); BASOPHILS % (AUTO) 1 % (0-1); EOSINOPHILS # (AUTO) 0.66 x10^3/uL (0-0.4); EOSINOPHILS % (AUTO) 10 % (1-7); LYMPHOCYTES # (AUTO) 1.21 x10^3/uL (1-3.4); LYMPHOCYTES % (AUTO) 18 % (22-44); MD NO; MEAN CORPUSCULAR HEMOGLOBIN 30.9 pg (27.5-34.5); MEAN PLATELET VOLUME 6.5 fL (7.4-10.4); MONOCYTES % (AUTO) 8 % (2-9); NEUTROPHILS % (AUTO) 64 % (42-75); PLATELET COUNT 372 x10^3/uL (130-400); RED BLOOD COUNT 2.75 x10^6/uL (4.38-5.82); RED CELL DISTRIBUTION WIDTH 15.5 % (9.4-14.8)
[2017-10-04] MEDS: INSULIN LISPRO 100 UNITS/ML, PEN SQ-INSULIN SCH ×4 (07:00→20:47)
[2017-10-04] MEDS: SEVELAMER HCL 800MG TABLET PO SCH ×3 (07:00→16:00)
[2017-10-04 07:03] LABS: INTERNATIONAL NORMALIZED RATIO 3.41 (0.93-1.1); PROTHROMBIN TIME 34.6 Seconds (9.6-11.5)
[2017-10-04 07:07] LABS: ALANINE AMINOTRANSFERASE 14 U/L (12-78); ALBUMIN 1.6 g/dL (3.4-5.0); ANION GAP 9 mmol/L (5-15); CALCIUM 7.6 mg/dL (8.5-10.1); CHLORIDE 101 mmol/L (98-107); CREATININE 6.73 mg/dL (0.7-1.3)
[2017-10-04 07:12] LABS: ALKALINE PHOSPHATASE 178 U/L (45-117); BILIRUBIN,TOTAL 0.3 mg/dL (0.2-1.0); CHOL/HDL RATIO 2.8; CHOLESTEROL, TOTAL 100 mg/dL (140-239); HDL CHOL % 36 % (26-37); HDL CHOLESTEROL (DIRECT) 36 mg/dL (40-60); LDL CHOLESTEROL,CALCULATED 48 mg/dL (54-169); LDL/HDL RATIO 1.3 (0.5-3.0); TOTAL PROTEIN 5.3 g/dL (6.4-8.2); TRIGLYCERIDES 80 mg/dL (50-200); VLDL CHOLESTEROL 16 mg/dL (0-25)
[2017-10-04 07:17] VITALS: BP 130/73
[2017-10-04] MEDS: INSULIN GLARGINE 100 UNITS/ML, PEN SQ-INSULIN SCH ×2 (09:00→20:47)
[2017-10-04 12:55] VITALS: BP 104/60
[2017-10-04] MEDS: LOSARTAN 25MG TABLET PO SCH (13:02)
[2017-10-04] MEDS: CARVEDILOL 3.125 MG TABLET PO SCH ×2 (13:02→21:15)
[2017-10-04] MEDS: CALCIUM ACETATE 667 MG CAPSULE PO SCH ×3 (13:02→21:15)
[2017-10-04 20:26] VITALS: BP 131/69
[2017-10-04] MEDS: SIMVASTATIN 10 MG TABLET PO SCH (21:15)
[2017-10-05 00:42] VITALS: BP 107/66
[2017-10-05 05:39] LABS: INTERNATIONAL NORMALIZED RATIO 3.03 (0.93-1.1); PROTHROMBIN TIME 30.8 Seconds (9.6-11.5)
[2017-10-05 05:48] LABS: CHLORIDE 99 mmol/L (98-107)
[2017-10-05 05:52] LABS: BASOPHILS # (AUTO) 0.04 x10^3/uL (0-0.1); BASOPHILS % (AUTO) 1 % (0-1); EOSINOPHILS # (AUTO) 0.32 x10^3/uL (0-0.4); EOSINOPHILS % (AUTO) 6 % (1-7); LYMPHOCYTES % (AUTO) 17 % (22-44); MD NO; MEAN CORPUSCULAR HEMOGLOBIN 30.5 pg (27.5-34.5); MEAN CORPUSCULAR HGB CONC 33.5 g/dL (33.2-36.2); MEAN CORPUSCULAR VOLUME 91.1 fL (81-97); MEAN PLATELET VOLUME 6.8 fL (7.4-10.4); MONOCYTES # (AUTO) 0.43 x10^3/uL (0.2-0.8); MONOCYTES % (AUTO) 8 % (2-9); NEUTROPHILS # (AUTO) 3.54 x10^3/uL (1.8-6.8); NEUTROPHILS % (AUTO) 68 % (42-75); PLATELET COUNT 390 x10^3/uL (130-400); RED BLOOD COUNT 2.86 x10^6/uL (4.38-5.82); RED CELL DISTRIBUTION WIDTH 15.8 % (9.4-14.8)
[2017-10-05 05:59] LABS: % IRON SATURATION 31 % (20-55); ALANINE AMINOTRANSFERASE 18 U/L (12-78); ALBUMIN 1.7 g/dL (3.4-5.0); ALKALINE PHOSPHATASE 186 U/L (45-117); ANION GAP 6 mmol/L (5-15); BILIRUBIN,TOTAL 0.3 mg/dL (0.2-1.0); CALCIUM 7.4 mg/dL (8.5-10.1); IRON LEVEL 49 mcg/dL (65-175); TOTAL IRON BINDING CAPACITY 159 mcg/dL (250-450); TOTAL PROTEIN 5.9 g/dL (6.4-8.2)
[2017-10-05] MEDS: INSULIN LISPRO 100 UNITS/ML, PEN SQ-INSULIN SCH ×2 (07:00→11:00)
[2017-10-05 07:41] VITALS: BP 144/75
[2017-10-05] MEDS: SEVELAMER HCL 800MG TABLET PO SCH ×2 (08:19→11:00)
[2017-10-05] MEDS: LOSARTAN 25MG TABLET PO SCH (08:20)
[2017-10-05] MEDS: CARVEDILOL 3.125 MG TABLET PO SCH (08:20)
[2017-10-05] MEDS: CALCIUM ACETATE 667 MG CAPSULE PO SCH (08:20)
[2017-10-05] MEDS: INSULIN GLARGINE 100 UNITS/ML, PEN SQ-INSULIN SCH (09:00)
[2017-10-05] MEDS ORDERED: CARV3.122 PO (10:24)
== END 2017-10-05 13:19 | disposition home or self-care (01) | DRG 814 ==
LOC: ED 21:12 → EDIP 10-03 01:11 → INTOOBSV 10-03 01:11 → 4EST 10-03 01:54 → OBSVTOIN 10-03 12:50
PROVIDERS: ADMIT Internal Medicine; ATTEND Internal Medicine
PROC: 0W9G3ZZ Drainage of Peritoneal Cavity, Percutaneous Approach (ICD-10-PCS; principal; 2017-10-03)
DX: D68.59 Other primary thrombophilia (principal); E43 Unspecified severe protein-calorie malnutrition; I13.2 Hypertensive heart and chronic kidney disease with heart failure and with stage 5 chronic kidney disease, or end stage renal disease; E11.22 Type 2 diabetes mellitus with diabetic chronic kidney disease; K76.6 Portal hypertension; E11.51 Type 2 diabetes mellitus with diabetic peripheral angiopathy without gangrene; N25.0 Renal osteodystrophy; N18.6 End stage renal disease; R18.8 Other ascites; D63.8 Anemia in other chronic diseases classified elsewhere; I50.9 Heart failure, unspecified; I35.2 Nonrheumatic aortic (valve) stenosis with insufficiency; Z95.2 Presence of prosthetic heart valve; Z99.2 Dependence on renal dialysis; Z91.19 Patient's noncompliance with other medical treatment and regimen; Z91.15 Patient's noncompliance with renal dialysis; Z89.511 Acquired absence of right leg below knee; Z87.891 Personal history of nicotine dependence; Z86.14 Personal history of Methicillin resistant Staphylococcus aureus infection; Z83.3 Family history of diabetes mellitus; Z79.01 Long term (current) use of anticoagulants; K74.60 Unspecified cirrhosis of liver; Z68.24 Body mass index [BMI] 24.0-24.9, adult; K06.8 Other specified disorders of gingiva and edentulous alveolar ridge
CPT/HCPCS: 36415; 49083; 71045; 80048; 80053; 80061; 82306; 82728; 82962; 83036; 83540; 83550; 83690; 83735; 83970; 84100; 84439; 84443; 84550; 85014; 85018; 85025; 85610; 85730; 86850; 86900; 88112; 88305; 93005; 99285; G0378; J2405; J3490; J0360; J1815

== ENCOUNTER 2017-10-10 20:57 | Emergency (ER) | payer MEDICAID ==
[~2017-10-10] VITALS: Ht 177.8 cm; Wt 78.3 kg
[2017-10-10 22:11] LABS: BASOPHILS # (AUTO) 0.04 x10^3/uL (0-0.1); BASOPHILS % (AUTO) 1 % (0-1); EOSINOPHILS # (AUTO) 0.46 x10^3/uL (0-0.4); EOSINOPHILS % (AUTO) 7 % (1-7); LYMPHOCYTES # (AUTO) 1.01 x10^3/uL (1-3.4); LYMPHOCYTES % (AUTO) 14 % (22-44); MD NO; MEAN CORPUSCULAR HEMOGLOBIN 31.1 pg (27.5-34.5); MEAN CORPUSCULAR HGB CONC 33.5 g/dL (33.2-36.2); MEAN CORPUSCULAR VOLUME 92.7 fL (81-97); MEAN PLATELET VOLUME 6.4 fL (7.4-10.4); MONOCYTES % (AUTO) 7 % (2-9); NEUTROPHILS # (AUTO) 5.11 x10^3/uL (1.8-6.8); NEUTROPHILS % (AUTO) 72 % (42-75); PLATELET COUNT 403 x10^3/uL (130-400); RED BLOOD COUNT 2.84 x10^6/uL (4.38-5.82); RED CELL DISTRIBUTION WIDTH 17.2 % (9.4-14.8)
[2017-10-10 22:16] LABS: INTERNATIONAL NORMALIZED RATIO 1.14 (0.93-1.1); PROTHROMBIN TIME 11.8 Seconds (9.6-11.5)
[2017-10-10 22:19] LABS: ANION GAP 12 mmol/L (5-15); CALCIUM 7.1 mg/dL (8.5-10.1); CHLORIDE 102 mmol/L (98-107)
[2017-10-10] MEDS ORDERED: LIDOCAINE-MPF 2% ,5ML ONE ×2 (22:20)
[2017-10-10 22:28] LABS: ALANINE AMINOTRANSFERASE 20 U/L (12-78); ALKALINE PHOSPHATASE 238 U/L (45-117); BILIRUBIN,TOTAL 0.3 mg/dL (0.2-1.0); CREATININE 8.03 mg/dL (0.7-1.3); TOTAL PROTEIN 6.7 g/dL (6.4-8.2)
[2017-10-10 23:07] VITALS: BP 164/91
== END 2017-10-10 23:30 | disposition home or self-care (01) ==
LOC: ED 23:24
DX: I12.0 Hypertensive chronic kidney disease with stage 5 chronic kidney disease or end stage renal disease (principal); D63.1 Anemia in chronic kidney disease; R18.8 Other ascites; N18.6 End stage renal disease; Z79.4 Long term (current) use of insulin; Z89.511 Acquired absence of right leg below knee; Z90.49 Acquired absence of other specified parts of digestive tract
CPT/HCPCS: 36415; 49083; 80053; 83880; 85025; 85610; 85730; 99285

== ENCOUNTER 2017-10-12 15:29 | Inpatient (IN) | payer MEDICAID ==
[~2017-10-12] VITALS: Ht 177.8 cm; Wt 63.4 kg
[2017-10-12 16:31] LABS: BASOPHILS # (AUTO) 0.04 x10^3/uL (0-0.1); BASOPHILS % (AUTO) 1 % (0-1); EOSINOPHILS # (AUTO) 0.45 x10^3/uL (0-0.4); EOSINOPHILS % (AUTO) 5 % (1-7); LYMPHOCYTES # (AUTO) 0.72 x10^3/uL (1-3.4); LYMPHOCYTES % (AUTO) 8 % (22-44); MD NO; MEAN CORPUSCULAR HGB CONC 32.7 g/dL (33.2-36.2); MEAN CORPUSCULAR VOLUME 91.9 fL (81-97); MEAN PLATELET VOLUME 6.7 fL (7.4-10.4); MONOCYTES # (AUTO) 0.54 x10^3/uL (0.2-0.8); MONOCYTES % (AUTO) 6 % (2-9); NEUTROPHILS # (AUTO) 6.83 x10^3/uL (1.8-6.8); NEUTROPHILS % (AUTO) 80 % (42-75); PLATELET COUNT 316 x10^3/uL (130-400); RED BLOOD COUNT 2.81 x10^6/uL (4.38-5.82); RED CELL DISTRIBUTION WIDTH 16.9 % (9.4-14.8)
[2017-10-12] MEDS ORDERED: WARF3TAB PO (16:31)
[2017-10-12] MEDS ORDERED: WARF6TAB7 PO (16:31)
[2017-10-12 16:38] LABS: ALBUMIN 1.8 g/dL (3.4-5.0); ANION GAP 14 mmol/L (5-15); CALCIUM 7.2 mg/dL (8.5-10.1); CHLORIDE 103 mmol/L (98-107); CREATININE 9.22 mg/dL (0.7-1.3)
[2017-10-12] MEDS ORDERED: DEXTROSE 50%, 50ML SYRINGE IVPush ONE (17:00)
[2017-10-12] MEDS ORDERED: SODIUM BICARB 8.4%, 50ML SYRINGE IVPush ONE (17:00)
[2017-10-12] MEDS ORDERED: INSULIN REGULAR 100 UNITS/ML, 3ML VIAL IVPush ONE (17:00)
[2017-10-12] MEDS ORDERED: DEXTROSE 50%, 50ML SYRINGE ONE (17:11)
[2017-10-12] MEDS ORDERED: SODIUM BICARB 8.4%, 50ML SYRINGE ONE (17:11)
[2017-10-12] MEDS ORDERED: INSULIN REGULAR 100 UNITS/ML, 3ML VIAL ONE (17:13)
[2017-10-12] MEDS ORDERED: hydrALAzine 20 MG/ML, 1ML IVPush PRN (17:30)
[2017-10-12] MEDS ORDERED: CALCITRIOL 0.25 MCG CAPSULE PO SCH (17:30)
[2017-10-12] MEDS ORDERED: DOCUSATE 100 MG CAPSULE PO PRN (17:30)
[2017-10-12 17:48] LABS: INTERNATIONAL NORMALIZED RATIO 1.23 (0.93-1.1); PROTHROMBIN TIME 12.6 Seconds (9.6-11.5)
[2017-10-12] MEDS ORDERED: hydrALAzine 20 MG/ML, 1ML ONE (18:09)
[2017-10-12] MEDS: INSULIN GLARGINE 100 UNITS/ML, PEN SQ-INSULIN SCH (21:00)
[2017-10-12 22:00] VITALS: BP 152/76
[2017-10-12] MEDS: SIMVASTATIN 10 MG TABLET PO SCH (22:05)
[2017-10-12] MEDS: CALCIUM ACETATE 667 MG CAPSULE PO SCH (22:05)
[2017-10-12] MEDS: CARVEDILOL 3.125 MG TABLET PO SCH (22:06)
[2017-10-13] MEDS ORDERED: ACETAMINOPHEN 325 MG TABLET PO PRN (00:30)
[2017-10-13 01:07] VITALS: BP 121/65
[2017-10-13 05:05] LABS: BASOPHILS # (AUTO) 0.04 x10^3/uL (0-0.1); BASOPHILS % (AUTO) 1 % (0-1); EOSINOPHILS # (AUTO) 0.23 x10^3/uL (0-0.4); EOSINOPHILS % (AUTO) 3 % (1-7); LYMPHOCYTES # (AUTO) 0.78 x10^3/uL (1-3.4); LYMPHOCYTES % (AUTO) 11 % (22-44); MD NO; MEAN CORPUSCULAR HEMOGLOBIN 30.8 pg (27.5-34.5); MEAN CORPUSCULAR HGB CONC 33.5 g/dL (33.2-36.2); MEAN CORPUSCULAR VOLUME 91.9 fL (81-97); MONOCYTES # (AUTO) 0.53 x10^3/uL (0.2-0.8); MONOCYTES % (AUTO) 7 % (2-9); NEUTROPHILS # (AUTO) 5.69 x10^3/uL (1.8-6.8); NEUTROPHILS % (AUTO) 78 % (42-75); PLATELET COUNT 279 x10^3/uL (130-400); RED BLOOD COUNT 2.48 x10^6/uL (4.38-5.82); RED CELL DISTRIBUTION WIDTH 17.1 % (9.4-14.8)
[2017-10-13 05:26] LABS: ANION GAP 10 mmol/L (5-15); CALCIUM 7.2 mg/dL (8.5-10.1); CHLORIDE 99 mmol/L (98-107); CREATININE 5.98 mg/dL (0.7-1.3)
[2017-10-13 07:25] VITALS: BP 159/86
[2017-10-13] MEDS ORDERED: SODIUM BICARB 8.4%, 50ML SYRINGE ONE (08:08)
[2017-10-13] MEDS: SEVELAMER HCL 800MG TABLET PO SCH ×3 (08:39→17:29)
[2017-10-13] MEDS: CARVEDILOL 3.125 MG TABLET PO SCH ×2 (08:40→20:14)
[2017-10-13] MEDS: CALCIUM ACETATE 667 MG CAPSULE PO SCH ×3 (08:40→20:14)
[2017-10-13] MEDS: INSULIN GLARGINE 100 UNITS/ML, PEN SQ-INSULIN SCH ×2 (08:41→21:00)
[2017-10-13] MEDS ORDERED: LOSARTAN 25MG TABLET PO SCH (09:00)
[2017-10-13] MEDS ORDERED: ARANESP 100 MCG/ML **ESRD SQ SCH (10:30)
[2017-10-13 12:15] VITALS: BP 136/75
[2017-10-13] MEDS ORDERED: HEPARIN 25,000 UNITS/500ML PMX 500 ML IV PRN ×2 (16:00→16:30)
[2017-10-13] MEDS ORDERED: HEPARIN 5,000 UNITS/ML, 1ML IV ONE ×2 (16:00→16:30)
[2017-10-13] MEDS ORDERED: HEPARIN 5,000 UNITS/ML, 1ML IV PRN ×2 (16:00→16:30)
[2017-10-13] MEDS ORDERED: WARFARIN 3 MG TABLET PO-COUM SCH (18:00)
[2017-10-13 18:32] VITALS: BP 164/72
[2017-10-13 20:12] VITALS: BP 142/82
[2017-10-13] MEDS: SIMVASTATIN 10 MG TABLET PO SCH (20:14)
[2017-10-14] MEDS ORDERED: WARFARIN 3 MG TABLET PO-COUM SCH (18:00)
== END 2017-10-14 00:51 | disposition left against medical advice (07) | DRG 640 ==
LOC: ED 17:29 → EDIP 17:57 → 4WST 18:01
PROVIDERS: ADMIT Internal Medicine; ATTEND Internal Medicine
PROC: 5A1D70Z Performance of Urinary Filtration, Intermittent, Less than 6 Hours Per Day (ICD-10-PCS; principal; 2017-10-12)
PROC: 0W9G3ZZ Drainage of Peritoneal Cavity, Percutaneous Approach (ICD-10-PCS; 2017-10-13)
DX: E87.70 Fluid overload, unspecified (principal); E43 Unspecified severe protein-calorie malnutrition; I13.2 Hypertensive heart and chronic kidney disease with heart failure and with stage 5 chronic kidney disease, or end stage renal disease; D68.69 Other thrombophilia; E11.22 Type 2 diabetes mellitus with diabetic chronic kidney disease; E11.51 Type 2 diabetes mellitus with diabetic peripheral angiopathy without gangrene; E11.65 Type 2 diabetes mellitus with hyperglycemia; N18.6 End stage renal disease; K76.6 Portal hypertension; I50.42 Chronic combined systolic (congestive) and diastolic (congestive) heart failure; R18.8 Other ascites; E87.5 Hyperkalemia; E87.1 Hypo-osmolality and hyponatremia; D63.1 Anemia in chronic kidney disease; E78.5 Hyperlipidemia, unspecified; F41.9 Anxiety disorder, unspecified; G89.29 Other chronic pain; I35.2 Nonrheumatic aortic (valve) stenosis with insufficiency; Z53.21 Procedure and treatment not carried out due to patient leaving prior to being seen by health care provider; K72.90 Hepatic failure, unspecified without coma; N25.0 Renal osteodystrophy; Z79.01 Long term (current) use of anticoagulants; Z79.4 Long term (current) use of insulin; Z82.49 Family history of ischemic heart disease and other diseases of the circulatory system; Z86.14 Personal history of Methicillin resistant Staphylococcus aureus infection; Z83.3 Family history of diabetes mellitus; Z89.511 Acquired absence of right leg below knee; Z91.15 Patient's noncompliance with renal dialysis; Z91.19 Patient's noncompliance with other medical treatment and regimen; Z95.2 Presence of prosthetic heart valve; Z99.2 Dependence on renal dialysis; Z88.8 Allergy status to other drugs, medicaments and biological substances
CPT/HCPCS: 36415; 49083; 80048; 82040; 82962; 85025; 85520; 85610; 87070; 87077; 87186; 87205; 93005; 96374; 96375; J0882; J1644; J0360; J1815

== ENCOUNTER 2017-10-22 23:52 | Emergency (ER) | payer MEDICAID ==
[~2017-10-22] VITALS: Ht 177.8 cm; Wt 68.2 kg
[~2017-10-22 23:52] MED LIST changes: +WARF3TAB PO; +WARF6TAB7 PO
[2017-10-23 00:29] VITALS: BP 138/76
[2017-10-23] MEDS ORDERED: PROMETHAZINE 25MG TABLET PO PRN (01:30)
[2017-10-23] MEDS ORDERED: OXYcodone IR 5MG TABLET PO ONE (01:30)
[2017-10-23 01:37] LABS: BASOPHILS # (AUTO) 0.05 x10^3/uL (0-0.1); BASOPHILS % (AUTO) 1 % (0-1); EOSINOPHILS # (AUTO) 0.37 x10^3/uL (0-0.4); EOSINOPHILS % (AUTO) 5 % (1-7); LYMPHOCYTES # (AUTO) 1.17 x10^3/uL (1-3.4); LYMPHOCYTES % (AUTO) 17 % (22-44); MD NO; MEAN CORPUSCULAR HEMOGLOBIN 30.8 pg (27.5-34.5); MEAN CORPUSCULAR HGB CONC 33.6 g/dL (33.2-36.2); MEAN CORPUSCULAR VOLUME 91.7 fL (81-97); MEAN PLATELET VOLUME 6.3 fL (7.4-10.4); MONOCYTES # (AUTO) 0.57 x10^3/uL (0.2-0.8); MONOCYTES % (AUTO) 8 % (2-9); NEUTROPHILS # (AUTO) 4.76 x10^3/uL (1.8-6.8); NEUTROPHILS % (AUTO) 69 % (42-75); PLATELET COUNT 383 x10^3/uL (130-400)
[2017-10-23 01:48] LABS: ALANINE AMINOTRANSFERASE 30 U/L (12-78); ALBUMIN 1.8 g/dL (3.4-5.0); ANION GAP 14 mmol/L (5-15); CALCIUM 6.8 mg/dL (8.5-10.1); CHLORIDE 103 mmol/L (98-107); CREATININE 7.66 mg/dL (0.7-1.3)
[2017-10-23 01:50] LABS: ALKALINE PHOSPHATASE 339 U/L (45-117); BILIRUBIN,TOTAL 0.5 mg/dL (0.2-1.0); TOTAL PROTEIN 6.6 g/dL (6.4-8.2)
[2017-10-23 01:58] LABS: PROTHROMBIN TIME 54.9 Seconds (9.6-11.5)
[2017-10-23 01:59] LABS: INTERNATIONAL NORMALIZED RATIO 5.51 (0.93-1.1)
[2017-10-23] MEDS ORDERED: PROMETHAZINE 25MG TABLET ONE (02:04)
[2017-10-23] MEDS ORDERED: OXYcodone IR 5MG TABLET ONE (02:05)
== END 2017-10-23 02:59 | disposition home or self-care (01) ==
LOC: ED 23:59
DX: N18.6 End stage renal disease (principal); R18.8 Other ascites; R06.09 Other forms of dyspnea; R79.1 Abnormal coagulation profile; I13.2 Hypertensive heart and chronic kidney disease with heart failure and with stage 5 chronic kidney disease, or end stage renal disease; I50.9 Heart failure, unspecified; E11.22 Type 2 diabetes mellitus with diabetic chronic kidney disease; Z99.2 Dependence on renal dialysis; Z90.49 Acquired absence of other specified parts of digestive tract; Z89.511 Acquired absence of right leg below knee; Z79.01 Long term (current) use of anticoagulants; Z88.8 Allergy status to other drugs, medicaments and biological substances
CPT/HCPCS: 36415; 71045; 80053; 85025; 85610; 85730; 93005; 99285; Q0169

== ENCOUNTER 2017-11-11 19:55 | Inpatient (IN) | payer MEDICAID ==
[~2017-11-11] VITALS: Ht 177.8 cm; Wt 67.7 kg
[~2017-11-11 19:55] MED LIST changes: +WARF4TAB65 PO; -WARF4TAB7 PO; +WARF6TAB47 PO; -WARF6TAB7 PO
[2017-11-11] MEDS ORDERED: TRANEXAMIC ACID 100 MG/ML, 10ML TP STA (20:27)
[2017-11-11 20:30] LABS: BASOPHILS # (AUTO) 0.06 x10^3/uL (0-0.1); BASOPHILS % (AUTO) 1 % (0-1); EOSINOPHILS # (AUTO) 0.38 x10^3/uL (0-0.4); EOSINOPHILS % (AUTO) 6 % (1-7); LYMPHOCYTES # (AUTO) 1.24 x10^3/uL (1-3.4); LYMPHOCYTES % (AUTO) 18 % (22-44); MD NO; MEAN CORPUSCULAR HEMOGLOBIN 30.7 pg (27.5-34.5); MEAN CORPUSCULAR HGB CONC 34.3 g/dL (33.2-36.2); MEAN CORPUSCULAR VOLUME 89.5 fL (81-97); MEAN PLATELET VOLUME 6.9 fL (7.4-10.4); MONOCYTES # (AUTO) 0.54 x10^3/uL (0.2-0.8); MONOCYTES % (AUTO) 8 % (2-9); NEUTROPHILS # (AUTO) 4.58 x10^3/uL (1.8-6.8); NEUTROPHILS % (AUTO) 67 % (42-75); PLATELET COUNT 422 x10^3/uL (130-400); RED BLOOD COUNT 2.57 x10^6/uL (4.38-5.82); RED CELL DISTRIBUTION WIDTH 16.5 % (9.4-14.8)
[2017-11-11] MEDS ORDERED: PHENYLEPHRINE NASAL 1%, 30ML DROPS NAS ONE (20:30)
[2017-11-11] MEDS ORDERED: TRANEXAMIC ACID 100 MG/ML, 10ML ONE (20:31)
[2017-11-11] MEDS ORDERED: PHENYLEPHRINE NASAL 1%, 15ML SPRAY ONE (20:31)
[2017-11-11 20:36] LABS: INTERNATIONAL NORMALIZED RATIO 1.21 (0.93-1.1); PROTHROMBIN TIME 12.5 Seconds (9.6-11.5)
[2017-11-11 20:42] LABS: ALANINE AMINOTRANSFERASE 17 U/L (12-78); ALBUMIN 1.9 g/dL (3.4-5.0); ANION GAP 14 mmol/L (5-15); CALCIUM 7.5 mg/dL (8.5-10.1); CHLORIDE 105 mmol/L (98-107); CREATININE 9.38 mg/dL (0.7-1.3)
[2017-11-11 20:44] LABS: ALKALINE PHOSPHATASE 179 U/L (45-117); BILIRUBIN,TOTAL 0.3 mg/dL (0.2-1.0); TOTAL PROTEIN 6.8 g/dL (6.4-8.2)
[2017-11-11] MEDS ORDERED: BACITRACIN ZINC OINT 500U/GM, 0.9 GM ONE (21:42)
[2017-11-11] MEDS ORDERED: POLYETHYLENE GLYCOL 17 GM PACKET PO PRN (22:00)
[2017-11-11] MEDS ORDERED: OXYcodone IR 5MG TABLET PO PRN (22:00)
[2017-11-11] MEDS ORDERED: hydrALAzine 20 MG/ML, 1ML IVPush PRN (22:00)
[2017-11-11] MEDS ORDERED: DOCUSATE 100 MG CAPSULE PO PRN (22:00)
[2017-11-11] MEDS ORDERED: BISACODYL 10 MG SUPP PR PRN (22:00)
[2017-11-11] MEDS ORDERED: ONDANSETRON 2MG/ML, 2ML IVPush PRN (22:00)
[2017-11-11] MEDS ORDERED: DOXYCYCLINE 100MG TABLET PO SCH (22:30)
[2017-11-11] MEDS ORDERED: CEFTRIAXONE PMX 2GM/50ML 50 ML IV SCH (22:30)
[2017-11-11] MEDS ORDERED: WARFARIN MECH. VALVE PROTOCOL 2.5 to 3.5 XX PRN (22:30)
[2017-11-11] MEDS ORDERED: VANCOMYCIN 1,300 MG in SODIUM CHLORIDE 0.9% 250 ML IV ONE (23:00)
[2017-11-11] MEDS ORDERED: PHARMACOKINETIC CONSULTATION MC ONE (23:00)
[2017-11-11] MEDS ORDERED: VANCOMYCIN PMX 1GM/200ML 200 ML IV ONE (23:00)
[2017-11-11] MEDS ORDERED: PHARMACOKINETIC MONITORING MC PRN (23:00)
[2017-11-11] MEDS ORDERED: VANCOMYCIN PER PHARMACY MC PRN (23:00)
[2017-11-11] MEDS: morphine SULFATE 10 MG/ML, 1ML IVPush PRN (23:01)
[2017-11-11] MEDS ORDERED: WARFARIN 3 MG TABLET PO-COUM ONE (23:30)
[2017-11-11 23:56] VITALS: BP 170/82
[2017-11-12] VITALS (8 sets, daily range): BP systolic 126–146; BP diastolic 69–77
[2017-11-12] MEDS: AMPICILLIN/SULBACTAM 3 GM in SODIUM CHLORIDE 0.9% 100 ML IV SCH ×2 (01:54→23:49)
[2017-11-12] MEDS: morphine SULFATE 10 MG/ML, 1ML IVPush PRN ×7 (03:53→23:49)
[2017-11-12 05:44] LABS: BASOPHILS # (AUTO) 0.04 x10^3/uL (0-0.1); BASOPHILS % (AUTO) 1 % (0-1); EOSINOPHILS # (AUTO) 0.35 x10^3/uL (0-0.4); EOSINOPHILS % (AUTO) 6 % (1-7); LYMPHOCYTES # (AUTO) 1.16 x10^3/uL (1-3.4); LYMPHOCYTES % (AUTO) 19 % (22-44); MD NO; MEAN CORPUSCULAR HEMOGLOBIN 29.7 pg (27.5-34.5); MEAN CORPUSCULAR HGB CONC 33.1 g/dL (33.2-36.2); MEAN CORPUSCULAR VOLUME 89.8 fL (81-97); MEAN PLATELET VOLUME 7.1 fL (7.4-10.4); MONOCYTES # (AUTO) 0.61 x10^3/uL (0.2-0.8); MONOCYTES % (AUTO) 10 % (2-9); NEUTROPHILS % (AUTO) 66 % (42-75); PLATELET COUNT 392 x10^3/uL (130-400); RED BLOOD COUNT 2.23 x10^6/uL (4.38-5.82); RED CELL DISTRIBUTION WIDTH 16.3 % (9.4-14.8)
[2017-11-12 05:53] LABS: ALBUMIN 1.6 g/dL (3.4-5.0); ANION GAP 13 mmol/L (5-15); CALCIUM 6.9 mg/dL (8.5-10.1); CHLORIDE 104 mmol/L (98-107)
[2017-11-12 05:58] LABS: ALANINE AMINOTRANSFERASE 15 U/L (12-78); ALKALINE PHOSPHATASE 162 U/L (45-117); BILIRUBIN,TOTAL 0.4 mg/dL (0.2-1.0); CREATININE 9.46 mg/dL (0.7-1.3)
[2017-11-12] MEDS: INSULIN LISPRO 100 UNITS/ML, PEN SQ-INSULIN SCH ×4 (07:00→20:18)
[2017-11-12] MEDS: CALCIUM ACETATE 667 MG CAPSULE PO SCH ×3 (07:12→20:14)
[2017-11-12] MEDS: SEVELAMER HCL 800MG TABLET PO SCH ×3 (07:13→17:14)
[2017-11-12 08:18] LABS: INTERNATIONAL NORMALIZED RATIO 1.3 (0.93-1.1); PROTHROMBIN TIME 13.4 Seconds (9.6-11.5)
[2017-11-12] MEDS ORDERED: LIDOCAINE-MPF 1%, 5ML ONE (08:19)
[2017-11-12] MEDS: LOSARTAN 25MG TABLET PO SCH (09:00)
[2017-11-12] MEDS: CARVEDILOL 3.125 MG TABLET PO SCH ×2 (09:00→20:14)
[2017-11-12] MEDS ORDERED: WARFARIN 10 MG TABLET PO-COUM ONE (18:00)
[2017-11-12] MEDS: SIMVASTATIN 10 MG TABLET PO SCH (20:14)
[2017-11-13 02:00] VITALS: BP 120/69
[2017-11-13] MEDS: morphine SULFATE 10 MG/ML, 1ML IVPush PRN ×6 (03:13→20:38)
[2017-11-13 05:28] LABS: INTERNATIONAL NORMALIZED RATIO 2.2 (0.93-1.1); PROTHROMBIN TIME 22.5 Seconds (9.6-11.5)
[2017-11-13 05:31] LABS: CHLORIDE 102 mmol/L (98-107)
[2017-11-13 05:38] LABS: BASOPHILS # (AUTO) 0.03 x10^3/uL (0-0.1); BASOPHILS % (AUTO) 1 % (0-1); EOSINOPHILS # (AUTO) 0.25 x10^3/uL (0-0.4); EOSINOPHILS % (AUTO) 5 % (1-7); LYMPHOCYTES # (AUTO) 1.11 x10^3/uL (1-3.4); LYMPHOCYTES % (AUTO) 22 % (22-44); MD NO; MEAN CORPUSCULAR HEMOGLOBIN 29.7 pg (27.5-34.5); MEAN CORPUSCULAR HGB CONC 33.6 g/dL (33.2-36.2); MEAN CORPUSCULAR VOLUME 88.4 fL (81-97); MEAN PLATELET VOLUME 7.1 fL (7.4-10.4); MONOCYTES # (AUTO) 0.49 x10^3/uL (0.2-0.8); MONOCYTES % (AUTO) 10 % (2-9); NEUTROPHILS # (AUTO) 3.24 x10^3/uL (1.8-6.8); NEUTROPHILS % (AUTO) 63 % (42-75); PLATELET COUNT 371 x10^3/uL (130-400); RED BLOOD COUNT 2.65 x10^6/uL (4.38-5.82); RED CELL DISTRIBUTION WIDTH 16.1 % (9.4-14.8)
[2017-11-13 05:45] LABS: ALANINE AMINOTRANSFERASE 13 U/L (12-78); ALBUMIN 1.5 g/dL (3.4-5.0); ALKALINE PHOSPHATASE 143 U/L (45-117); ANION GAP 11 mmol/L (5-15); BILIRUBIN,TOTAL 0.4 mg/dL (0.2-1.0); CALCIUM 7.6 mg/dL (8.5-10.1); CREATININE 7.02 mg/dL (0.7-1.3); TOTAL PROTEIN 5.7 g/dL (6.4-8.2); VANCOMYCIN,RANDOM 17.2 mcg/mL
[2017-11-13] MEDS: INSULIN LISPRO 100 UNITS/ML, PEN SQ-INSULIN SCH ×4 (07:00→22:46)
[2017-11-13 07:03] VITALS: BP 123/69
[2017-11-13] MEDS: CALCIUM ACETATE 667 MG CAPSULE PO SCH ×3 (08:26→20:38)
[2017-11-13] MEDS: SEVELAMER HCL 800MG TABLET PO SCH ×3 (08:26→17:29)
[2017-11-13] MEDS: CARVEDILOL 3.125 MG TABLET PO SCH ×2 (08:33→20:38)
[2017-11-13] MEDS: LOSARTAN 25MG TABLET PO SCH (08:33)
[2017-11-13] MEDS ORDERED: CALCITRIOL 0.25 MCG CAPSULE PO SCH (09:00)
[2017-11-13] MEDS: TORSEMIDE 20 MG TABLET PO SCH (09:59)
[2017-11-13 13:52] VITALS: BP 126/74
[2017-11-13] MEDS ORDERED: VANCOMYCIN PMX 1GM/200ML 200 ML IVPB ONE (17:00)
[2017-11-13] MEDS ORDERED: WARFARIN 7.5 MG TABLET PO-COUM SCH (18:00)
[2017-11-13] MEDS: AMPICILLIN/SULBACTAM 3 GM in SODIUM CHLORIDE 0.9% 100 ML IV SCH (18:31)
[2017-11-13 19:42] VITALS: BP 120/75
[2017-11-13] MEDS ORDERED: MORPHINE SULFATE 4 MG/ML, 1ML ONE (20:34)
[2017-11-13] MEDS: SIMVASTATIN 10 MG TABLET PO SCH (20:38)
[2017-11-14] MEDS ORDERED: MORPHINE SULFATE 4 MG/ML, 1ML ONE ×2 (00:09→04:45)
[2017-11-14] MEDS: morphine SULFATE 10 MG/ML, 1ML IVPush PRN ×5 (00:12→14:53)
[2017-11-14 01:24] VITALS: BP 112/72
[2017-11-14 05:27] LABS: INTERNATIONAL NORMALIZED RATIO 4.94 (0.93-1.1); PROTHROMBIN TIME 49.8 Seconds (9.6-11.5)
[2017-11-14 06:58] VITALS: BP 114/70
[2017-11-14] MEDS: INSULIN LISPRO 100 UNITS/ML, PEN SQ-INSULIN SCH ×2 (08:00→11:49)
[2017-11-14] MEDS: CALCIUM ACETATE 667 MG CAPSULE PO SCH (08:30)
[2017-11-14] MEDS: SEVELAMER HCL 800MG TABLET PO SCH ×2 (08:30→11:43)
[2017-11-14] MEDS: TORSEMIDE 20 MG TABLET PO SCH (08:30)
[2017-11-14] MEDS: LOSARTAN 25MG TABLET PO SCH (08:30)
[2017-11-14] MEDS: CARVEDILOL 3.125 MG TABLET PO SCH (08:30)
[2017-11-14 08:33] VITALS: BP 131/75
[2017-11-14 13:50] VITALS: BP 108/61
[2017-11-14] MEDS: AMPICILLIN/SULBACTAM 3 GM in SODIUM CHLORIDE 0.9% 100 ML IV SCH (14:01)
[2017-11-14] MEDS ORDERED: AMOX1TAB61 PO (14:05)
[2017-11-14] MEDS ORDERED: TORS20TA PO (14:05)
[2017-11-14] MEDS ORDERED: ONDANSETRON 4 MG TABLET ONE (14:08)
== END 2017-11-14 16:06 | disposition home or self-care (01) | DRG 640 ==
LOC: ED 20:47 → EDIP 21:36 → 4WST 22:48
PROVIDERS: ADMIT Internal Medicine; ATTEND Internal Medicine
PROC: 5A1D70Z Performance of Urinary Filtration, Intermittent, Less than 6 Hours Per Day (ICD-10-PCS; 2017-11-11)
PROC: 0W9G30Z Drainage of Peritoneal Cavity with Drainage Device, Percutaneous Approach (ICD-10-PCS; principal; 2017-11-12)
PROC: 30233N1 Transfusion of Nonautologous Red Blood Cells into Peripheral Vein, Percutaneous Approach (ICD-10-PCS; 2017-11-12)
PROC: 5A1D70Z Performance of Urinary Filtration, Intermittent, Less than 6 Hours Per Day (ICD-10-PCS; 2017-11-12)
DX: E87.5 Hyperkalemia (principal); E43 Unspecified severe protein-calorie malnutrition; D68.59 Other primary thrombophilia; E11.22 Type 2 diabetes mellitus with diabetic chronic kidney disease; E11.51 Type 2 diabetes mellitus with diabetic peripheral angiopathy without gangrene; E87.2 Acidosis; N18.6 End stage renal disease; I12.0 Hypertensive chronic kidney disease with stage 5 chronic kidney disease or end stage renal disease; K76.6 Portal hypertension; R18.8 Other ascites; D63.1 Anemia in chronic kidney disease; Z68.21 Body mass index [BMI] 21.0-21.9, adult; E87.70 Fluid overload, unspecified; R04.0 Epistaxis; Z79.01 Long term (current) use of anticoagulants; Z83.3 Family history of diabetes mellitus; Z86.14 Personal history of Methicillin resistant Staphylococcus aureus infection; Z89.511 Acquired absence of right leg below knee; Z91.15 Patient's noncompliance with renal dialysis; Z95.2 Presence of prosthetic heart valve; Z99.2 Dependence on renal dialysis; Z88.8 Allergy status to other drugs, medicaments and biological substances
CPT/HCPCS: 36415; 36430; 49083; 80053; 80202; 82962; 83735; 84100; 85025; 85610; 86850; 86900; 86923; 87070; 87077; 87186; 87205; 93005; 99285; J0295; J2405; J3370; J0360; J1815; J2270; J7050; P9016

== ENCOUNTER 2017-11-25 20:01 | Emergency (ER) | payer MEDICAID ==
[~2017-11-25] VITALS: Ht 177.8 cm; Wt 68.2 kg
[~2017-11-25 20:01] MED LIST changes: +AMOX1TAB61 PO; +TORS20TA PO
[2017-11-25] MEDS ORDERED: SODIUM CHLORIDE FLUSH 10ML SYR IVF ONE (20:30)
[2017-11-25 20:57] LABS: BASOPHILS # (AUTO) 0.05 x10^3/uL (0-0.1); BASOPHILS % (AUTO) 1 % (0-1); EOSINOPHILS # (AUTO) 0.32 x10^3/uL (0-0.4); EOSINOPHILS % (AUTO) 6 % (1-7); LYMPHOCYTES # (AUTO) 1.14 x10^3/uL (1-3.4); LYMPHOCYTES % (AUTO) 21 % (22-44); MD NO; MEAN CORPUSCULAR HEMOGLOBIN 30.3 pg (27.5-34.5); MEAN CORPUSCULAR HGB CONC 33.7 g/dL (33.2-36.2); MEAN CORPUSCULAR VOLUME 90.2 fL (81-97); MEAN PLATELET VOLUME 6.8 fL (7.4-10.4); MONOCYTES % (AUTO) 7 % (2-9); NEUTROPHILS # (AUTO) 3.62 x10^3/uL (1.8-6.8); NEUTROPHILS % (AUTO) 66 % (42-75); PLATELET COUNT 359 x10^3/uL (130-400); RED BLOOD COUNT 2.61 x10^6/uL (4.38-5.82); RED CELL DISTRIBUTION WIDTH 18.1 % (9.4-14.8)
[2017-11-25 21:08] LABS: ANION GAP 8 mmol/L (5-15); CALCIUM 7.3 mg/dL (8.5-10.1); CHLORIDE 99 mmol/L (98-107); CREATININE 9.31 mg/dL (0.7-1.3)
[2017-11-25] MEDS ORDERED: MORPHINE SULFATE 4 MG/ML, 1ML ONE ×2 (21:14→22:16)
[2017-11-25] MEDS: MORPHINE SULFATE 4 MG/ML, 1ML IVPush PRN ×2 (21:44→22:19)
[2017-11-25 22:19] VITALS: BP 155/83
== END 2017-11-25 22:55 | disposition home or self-care (01) ==
LOC: ED 22:40
DX: M25.561 Pain in right knee (principal); E11.22 Type 2 diabetes mellitus with diabetic chronic kidney disease; I12.0 Hypertensive chronic kidney disease with stage 5 chronic kidney disease or end stage renal disease; N18.6 End stage renal disease; Z89.511 Acquired absence of right leg below knee; Z99.2 Dependence on renal dialysis
CPT/HCPCS: 36415; 80048; 82040; 85025; 96374; 96376

== ENCOUNTER 2017-12-27 12:53 | Emergency (ER) | payer MEDICAID ==
[~2017-12-27] VITALS: Ht 177.8 cm; Wt 60.2 kg
[2017-12-27 13:29] LABS: BASOPHILS # (AUTO) 0.05 x10^3/uL (0-0.1); BASOPHILS % (AUTO) 1 % (0-1); EOSINOPHILS # (AUTO) 0.28 x10^3/uL (0-0.4); EOSINOPHILS % (AUTO) 5 % (1-7); LYMPHOCYTES # (AUTO) 1.02 x10^3/uL (1-3.4); LYMPHOCYTES % (AUTO) 19 % (22-44); MD NO; MEAN CORPUSCULAR HEMOGLOBIN 29.4 pg (27.5-34.5); MEAN CORPUSCULAR HGB CONC 33.9 g/dL (33.2-36.2); MEAN CORPUSCULAR VOLUME 86.8 fL (81-97); MONOCYTES # (AUTO) 0.43 x10^3/uL (0.2-0.8); MONOCYTES % (AUTO) 8 % (2-9); NEUTROPHILS # (AUTO) 3.77 x10^3/uL (1.8-6.8); NEUTROPHILS % (AUTO) 68 % (42-75); PLATELET COUNT 241 x10^3/uL (130-400); RED BLOOD COUNT 2.82 x10^6/uL (4.38-5.82); RED CELL DISTRIBUTION WIDTH 15.1 % (9.4-14.8)
[2017-12-27 13:41] LABS: ALANINE AMINOTRANSFERASE 13 U/L (12-78); ALBUMIN 2.5 g/dL (3.4-5.0); ANION GAP 21 mmol/L (5-15); CALCIUM 7.5 mg/dL (8.5-10.1); CHLORIDE 104 mmol/L (98-107)
[2017-12-27 13:43] LABS: BILIRUBIN,TOTAL 0.4 mg/dL (0.2-1.0); TOTAL PROTEIN 7.3 g/dL (6.4-8.2)
[2017-12-27 13:49] LABS: ALKALINE PHOSPHATASE 166 U/L (45-117)
[2017-12-27 15:24] VITALS: BP 158/88
== END 2017-12-27 15:27 | disposition home or self-care (01) ==
LOC: ED 14:07 → EDIP 14:08 → UNDOADMIN 14:08 → ED 14:16
DX: N18.6 End stage renal disease (principal); E11.22 Type 2 diabetes mellitus with diabetic chronic kidney disease; I13.2 Hypertensive heart and chronic kidney disease with heart failure and with stage 5 chronic kidney disease, or end stage renal disease; I50.9 Heart failure, unspecified; Z99.2 Dependence on renal dialysis
CPT/HCPCS: 36415; 71046; 80053; 83690; 85025; 99285

== ENCOUNTER 2018-01-07 13:35 | Emergency (ER) | payer MEDICAID ==
[~2018-01-07] VITALS: Ht 177.8 cm; Wt 75.7 kg
[2018-01-07 14:45] LABS: ALANINE AMINOTRANSFERASE 17 U/L (12-78); ALBUMIN 2.3 g/dL (3.4-5.0); ANION GAP 19 mmol/L (5-15); CALCIUM 6.6 mg/dL (8.5-10.1); CHLORIDE 104 mmol/L (98-107)
[2018-01-07 14:47] LABS: ALKALINE PHOSPHATASE 204 U/L (45-117); BILIRUBIN,TOTAL 0.4 mg/dL (0.2-1.0); TOTAL PROTEIN 7.3 g/dL (6.4-8.2)
[2018-01-07] MEDS ORDERED: PROMETHAZINE 25 MG/ML, 1ML ONE (15:17)
[2018-01-07 15:26] LABS: MEAN CORPUSCULAR VOLUME 85.3 fL (81-97); MEAN PLATELET VOLUME 7.2 fL (7.4-10.4); PLATELET COUNT 338 x10^3/uL (130-400); RED BLOOD COUNT 2.51 x10^6/uL (4.38-5.82); RED CELL DISTRIBUTION WIDTH 14.7 % (9.4-14.8)
[2018-01-07] MEDS ORDERED: PROMETHAZINE 25 MG/ML, 1ML IM ONE (15:30)
[2018-01-07 15:46] LABS: BASOPHILS # (AUTO) 0.11 x10^3/uL (0-0.1); BASOPHILS % (AUTO) 2 % (0-1); EOSINOPHILS # (AUTO) 0.47 x10^3/uL (0-0.4); EOSINOPHILS % (AUTO) 6 % (1-7); LYMPHOCYTES # (AUTO) 1.09 x10^3/uL (1-3.4); LYMPHOCYTES % (AUTO) 15 % (22-44); MD SCAN; MONOCYTES # (AUTO) 0.64 x10^3/uL (0.2-0.8); MONOCYTES % (AUTO) 9 % (2-9); NEUTROPHILS # (AUTO) 5.08 x10^3/uL (1.8-6.8); NEUTROPHILS % (AUTO) 69 % (42-75)
[2018-01-07 16:51] VITALS: BP 176/91
== END 2018-01-07 16:53 | disposition home or self-care (01) ==
LOC: ED 16:47
DX: T87.89 Other complications of amputation stump (principal); L89.899 Pressure ulcer of other site, unspecified stage; R11.2 Nausea with vomiting, unspecified; N18.6 End stage renal disease; E11.22 Type 2 diabetes mellitus with diabetic chronic kidney disease; I13.2 Hypertensive heart and chronic kidney disease with heart failure and with stage 5 chronic kidney disease, or end stage renal disease; I50.9 Heart failure, unspecified; E11.621 Type 2 diabetes mellitus with foot ulcer; Z99.2 Dependence on renal dialysis; Z90.49 Acquired absence of other specified parts of digestive tract; Z89.511 Acquired absence of right leg below knee
CPT/HCPCS: 36415; 80053; 83690; 85025; 96372; 99284; J2550

== ENCOUNTER 2018-02-19 19:02 | Emergency (ER) | payer MEDICAID ==
[~2018-02-19] VITALS: Ht 177.8 cm; Wt 69.2 kg
[2018-02-19 19:37] LABS: BASOPHILS # (AUTO) 0.05 x10^3/uL (0-0.1); BASOPHILS % (AUTO) 1 % (0-1); EOSINOPHILS % (AUTO) 6 % (1-7); LYMPHOCYTES # (AUTO) 1.42 x10^3/uL (1-3.4); LYMPHOCYTES % (AUTO) 30 % (22-44); MD NO; MEAN CORPUSCULAR HGB CONC 33.4 g/dL (33.2-36.2); MEAN CORPUSCULAR VOLUME 86.9 fL (81-97); MEAN PLATELET VOLUME 7.4 fL (7.4-10.4); MONOCYTES # (AUTO) 0.47 x10^3/uL (0.2-0.8); MONOCYTES % (AUTO) 10 % (2-9); NEUTROPHILS # (AUTO) 2.48 x10^3/uL (1.8-6.8); NEUTROPHILS % (AUTO) 53 % (42-75); PLATELET COUNT 318 x10^3/uL (130-400); RED BLOOD COUNT 3.12 x10^6/uL (4.38-5.82); RED CELL DISTRIBUTION WIDTH 15.4 % (9.4-14.8)
[2018-02-19 19:43] LABS: ALANINE AMINOTRANSFERASE 14 U/L (12-78); ALBUMIN 2.3 g/dL (3.4-5.0); ANION GAP 5 mmol/L (5-15); CALCIUM 7.9 mg/dL (8.5-10.1); CHLORIDE 100 mmol/L (98-107); CREATININE 5.13 mg/dL (0.7-1.3)
[2018-02-19 19:45] LABS: ALKALINE PHOSPHATASE 197 U/L (45-117); BILIRUBIN,TOTAL 0.3 mg/dL (0.2-1.0); TOTAL PROTEIN 7.4 g/dL (6.4-8.2)
[2018-02-19] MEDS ORDERED: OXYcodone 5 MG/5 ML ORAL.SOL UDC PO STA (20:14)
[2018-02-19] MEDS ORDERED: OXYcodone IR 5MG TABLET ONE (20:21)
[2018-02-19 20:44] LABS: INTERNATIONAL NORMALIZED RATIO 1.05 (0.93-1.1); PROTHROMBIN TIME 10.8 Seconds (9.6-11.5)
[2018-02-19] MEDS ORDERED: LIDOCAINE-MPF 2%, 2ML ONE (21:40)
[2018-02-19 23:37] VITALS: BP 166/81
== END 2018-02-20 00:09 | disposition home or self-care (01) ==
LOC: ED 21:02
DX: R10.84 Generalized abdominal pain (principal); R18.8 Other ascites; N18.6 End stage renal disease; Z99.2 Dependence on renal dialysis; I50.9 Heart failure, unspecified
CPT/HCPCS: 36415; 49083; 80053; 83690; 83735; 84100; 85025; 85610; 87070; 87205; 89051; 99285; J3490

== ENCOUNTER 2018-04-05 21:31 | Emergency (ER) | payer MEDICAID ==
[~2018-04-05] VITALS: Ht 177.8 cm; Wt 68.2 kg
[~2018-04-05 21:31] MED LIST changes: -AMLO10TA2 PO; +AMLO10TA6 PO; -LOSA25TA5 PO; +LOSA25TA6 PO
[2018-04-05] MEDS ORDERED: HYDROmorphone 2 MG/ML, 1ML ONE (22:15)
[2018-04-05 22:26] LABS: BASOPHILS # (AUTO) 0.03 x10^3/uL (0-0.1); BASOPHILS % (AUTO) 1 % (0-1); EOSINOPHILS # (AUTO) 0.18 x10^3/uL (0-0.4); EOSINOPHILS % (AUTO) 4 % (1-7); LYMPHOCYTES # (AUTO) 0.98 x10^3/uL (1-3.4); LYMPHOCYTES % (AUTO) 24 % (22-44); MD NO; MEAN CORPUSCULAR HGB CONC 33.1 g/dL (33.2-36.2); MEAN CORPUSCULAR VOLUME 87.8 fL (81-97); MEAN PLATELET VOLUME 6.6 fL (7.4-10.4); MONOCYTES # (AUTO) 0.29 x10^3/uL (0.2-0.8); MONOCYTES % (AUTO) 7 % (2-9); NEUTROPHILS % (AUTO) 64 % (42-75); PLATELET COUNT 280 x10^3/uL (130-400); RED BLOOD COUNT 3.14 x10^6/uL (4.38-5.82); RED CELL DISTRIBUTION WIDTH 15.2 % (9.4-14.8)
[2018-04-05] MEDS ORDERED: HYDROmorphone 1 MG/ML, 1ML IM ONE (22:30)
[2018-04-05 22:36] LABS: INTERNATIONAL NORMALIZED RATIO 1.05 (0.93-1.1); PROTHROMBIN TIME 10.9 Seconds (9.6-11.5)
[2018-04-05 22:38] LABS: ALANINE AMINOTRANSFERASE 19 U/L (12-78); ALBUMIN 1.8 g/dL (3.4-5.0); ANION GAP 12 mmol/L (5-15); CALCIUM 7.6 mg/dL (8.5-10.1); CHLORIDE 101 mmol/L (98-107); CREATININE 9.22 mg/dL (0.7-1.3)
[2018-04-05 22:40] LABS: ALKALINE PHOSPHATASE 230 U/L (45-117); BILIRUBIN,TOTAL 0.3 mg/dL (0.2-1.0); TOTAL PROTEIN 6.6 g/dL (6.4-8.2)
[2018-04-05] MEDS ORDERED: LIDOCAINE 2%, 20ML INFIL ONE (23:00)
[2018-04-05] MEDS ORDERED: LIDOCAINE-MPF 2%, 2ML ONE (23:38)
[2018-04-06 01:41] VITALS: BP 174/75
== END 2018-04-06 01:42 | disposition home or self-care (01) ==
LOC: ED 22:07
DX: I13.2 Hypertensive heart and chronic kidney disease with heart failure and with stage 5 chronic kidney disease, or end stage renal disease (principal); N18.6 End stage renal disease; R18.8 Other ascites; I50.9 Heart failure, unspecified; E11.22 Type 2 diabetes mellitus with diabetic chronic kidney disease; E78.5 Hyperlipidemia, unspecified; E11.65 Type 2 diabetes mellitus with hyperglycemia; E11.21 Type 2 diabetes mellitus with diabetic nephropathy; E11.69 Type 2 diabetes mellitus with other specified complication; M86.9 Osteomyelitis, unspecified; Z99.2 Dependence on renal dialysis; Z90.49 Acquired absence of other specified parts of digestive tract; Z89.511 Acquired absence of right leg below knee
CPT/HCPCS: 36415; 49083; 71045; 80053; 82945; 83690; 85025; 85610; 87070; 87075; 87205; 89051; 93005; 96372; 99285; J1170

== ENCOUNTER 2018-04-13 20:37 | Emergency (ER) | payer MEDICAID ==
[~2018-04-13] VITALS: Ht 177.8 cm; Wt 68.2 kg
[2018-04-13] MEDS ORDERED: HYDROmorphone 2 MG/ML, 1ML ONE (21:47)
[2018-04-13] MEDS ORDERED: HYDROmorphone 1 MG/ML, 1ML IM ONE (22:00)
[2018-04-13 22:43] LABS: BASOPHILS # (AUTO) 0.05 x10^3/uL (0-0.1); BASOPHILS % (AUTO) 1 % (0-1); EOSINOPHILS # (AUTO) 0.46 x10^3/uL (0-0.4); EOSINOPHILS % (AUTO) 6 % (1-7); LYMPHOCYTES % (AUTO) 17 % (22-44); MD NO; MEAN CORPUSCULAR HEMOGLOBIN 29.4 pg (27.5-34.5); MEAN CORPUSCULAR HGB CONC 33.2 g/dL (33.2-36.2); MEAN CORPUSCULAR VOLUME 88.4 fL (81-97); MEAN PLATELET VOLUME 6.9 fL (7.4-10.4); MONOCYTES # (AUTO) 0.69 x10^3/uL (0.2-0.8); MONOCYTES % (AUTO) 10 % (2-9); NEUTROPHILS # (AUTO) 4.74 x10^3/uL (1.8-6.8); NEUTROPHILS % (AUTO) 67 % (42-75); PLATELET COUNT 285 x10^3/uL (130-400); RED BLOOD COUNT 2.57 x10^6/uL (4.38-5.82); RED CELL DISTRIBUTION WIDTH 16.1 % (9.4-14.8)
[2018-04-13 22:51] LABS: ALBUMIN 1.6 g/dL (3.4-5.0); ANION GAP 13 mmol/L (5-15); CALCIUM 7.5 mg/dL (8.5-10.1); CHLORIDE 102 mmol/L (98-107); CREATININE 8.19 mg/dL (0.7-1.3)
[2018-04-13] MEDS ORDERED: LIDOCAINE-MPF 2%, 2ML ONE ×2 (23:20→23:31)
[2018-04-13] MEDS ORDERED: ZIPRASIDONE 20 MG INJ IM ONE ×2 (23:20→23:30)
[2018-04-13] MEDS ORDERED: LIDOCAINE 2%, 20ML INFIL ONE (23:30)
[2018-04-13 23:35] VITALS: BP 155/76
== END 2018-04-14 00:53 | disposition home or self-care (01) ==
LOC: ED 21:19
DX: R18.8 Other ascites (principal); N18.6 End stage renal disease; D63.1 Anemia in chronic kidney disease; L89.892 Pressure ulcer of other site, stage 2; E11.622 Type 2 diabetes mellitus with other skin ulcer; I13.2 Hypertensive heart and chronic kidney disease with heart failure and with stage 5 chronic kidney disease, or end stage renal disease; I50.9 Heart failure, unspecified; E11.22 Type 2 diabetes mellitus with diabetic chronic kidney disease; E78.5 Hyperlipidemia, unspecified; E11.69 Type 2 diabetes mellitus with other specified complication; M86.9 Osteomyelitis, unspecified; E11.21 Type 2 diabetes mellitus with diabetic nephropathy; Z88.8 Allergy status to other drugs, medicaments and biological substances; Z99.2 Dependence on renal dialysis; Z89.511 Acquired absence of right leg below knee
CPT/HCPCS: 36415; 49083; 73590; 80048; 82040; 85025; 93005; 96372; 99285; J1170; J3486

== ENCOUNTER 2018-11-03 19:12 | Inpatient (IN) | payer MEDICAID ==
[~2018-11-03] VITALS: Ht 177.8 cm; Wt 64.4 kg
[~2018-11-03 19:12] MED LIST changes: -AMLO10TA6 PO; +AMLO10TA8 PO; +DEXTROSE 50%, 50ML VIAL ONE; +LOSA25TA25 PO; -LOSA25TA6 PO
--- NOTE | 2018-11-03 19:35 | NUR ---
PT. TO ROOM AT THIS TIME.
--- NOTE | 2018-11-03 19:41 | NUR ---
PT. REPORTS D/C ON FRIDAY. 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 DR. SOLANO AT TO EVAL PT. AND DISCUSS POC. LABS HAVE BEEN DRAWN. CALL LIGHT IN REACH. ALL SAFETY MEASURES OBSERVED.
[2018-11-03 20:07] LABS: ALANINE AMINOTRANSFERASE 25 U/L (12-78); ANION GAP 8 mmol/L (5-15); CALCIUM 8.4 mg/dL (8.5-10.1); CHLORIDE 101 mmol/L (98-107); CREATININE 7.81 mg/dL (0.7-1.3)
[2018-11-03] MEDS ORDERED: HYDROcodone/APAP 5/325 TABLET ONE (20:07)
[2018-11-03 20:12] LABS: ALKALINE PHOSPHATASE 247 U/L (45-117); BILIRUBIN,TOTAL 0.3 mg/dL (0.2-1.0); TOTAL PROTEIN 8.1 g/dL (6.4-8.2); TROPONIN I 0.061 ng/mL (0.000-0.045)
[2018-11-03] MEDS ORDERED: HYDROcodone/APAP 5/325 TABLET PO ONE (20:30)
[2018-11-03 20:39] LABS: BASOPHILS # (AUTO) 0.05 x10^3/uL (0-0.1); BASOPHILS % (AUTO) 1 % (0-1); EOSINOPHILS # (AUTO) 0.22 x10^3/uL (0-0.4); EOSINOPHILS % (AUTO) 4 % (1-7); LYMPHOCYTES # (AUTO) 1.06 x10^3/uL (1-3.4); LYMPHOCYTES % (AUTO) 20 % (22-44); MD NO; MEAN CORPUSCULAR VOLUME 91.2 fL (81-97); MEAN PLATELET VOLUME 8.1 fL (7.4-10.4); MONOCYTES % (AUTO) 8 % (2-9); NEUTROPHILS # (AUTO) 3.57 x10^3/uL (1.8-6.8); NEUTROPHILS % (AUTO) 67 % (42-75); PLATELET COUNT 264 x10^3/uL (130-400)
--- NOTE | 2018-11-03 20:43 | NUR ---
CHART UP FOR RECHECK BY ALFONZO.
--- NOTE | 2018-11-03 20:46 | NUR ---
PT. RESTING ON GURNEY WITH EYES CLOSED. NADN. EVEN, NON-LABORED RESPIRATIONS VISIBLE. SAFETY MEASURES MAINTAINED.
[2018-11-03] MEDS ORDERED: SODIUM BICARB 8.4%, 50ML SYRINGE IVPush ONE (21:30)
[2018-11-03] MEDS ORDERED: DEXTROSE 50%, 50ML SYRINGE IVPush ONE (21:30)
[2018-11-03] MEDS ORDERED: INSULIN REGULAR 100 UNITS/ML, 3ML VIAL IVPush ONE (21:30)
[2018-11-03] MEDS ORDERED: CALCIUM CHLORIDE 10%, 10ML SYR IVPush ONE (21:30)
[2018-11-03] MEDS ORDERED: SODIUM CHLORIDE FLUSH 10ML SYR IVF PRN (21:30)
[2018-11-03] MEDS ORDERED: SODIUM CHLORIDE FLUSH 10ML SYR IVF ONE (21:30)
[2018-11-03] MEDS ORDERED: SODIUM BICARB 8.4%, 50ML SYRINGE ONE (21:44)
[2018-11-03] MEDS ORDERED: DEXTROSE 50%, 50ML SYRINGE ONE (21:44)
[2018-11-03] MEDS ORDERED: INSULIN LISPRO 100 UNITS/ML, PEN ONE (21:44)
[2018-11-03] MEDS ORDERED: CALCIUM CHLORIDE 10%, 10ML SYR ONE (21:44)
--- NOTE | 2018-11-03 21:46 | NUR ---
[facility] WAS IN TO EVAL PT. FOR ADMISSION. 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 ESTABLISING IV FOR MEDS.
[2018-11-03] MEDS ORDERED: ONDANSETRON 2MG/ML, 2ML ONE (22:21)
--- NOTE | 2018-11-03 22:22 | NUR ---
REPORT TO DANIEL HALEY. FLOOR READY FOR PT. TRANSPORT.
--- NOTE | 2018-11-03 22:27 | NUR ---
CHARMAINE RN: PT MEDICATED PER MAR FOR NAUSEA PT VOMIT X 1 WHEN GIVING MEDS FOR k+
[2018-11-03] MEDS ORDERED: GABAPENTIN 300 MG CAPSULE PO PRN (22:30)
[2018-11-03] MEDS ORDERED: DIPHENHYDRAMINE 50 MG CAPSULE PO PRN (22:30)
[2018-11-03] MEDS ORDERED: BISACODYL 10 MG SUPP PR PRN (22:30)
[2018-11-03] MEDS ORDERED: ACETAMINOPHEN 325 MG TABLET PO PRN (22:30)
[2018-11-03] MEDS ORDERED: SEVELAMER HCL 800MG TABLET PO SCH (22:30)
[2018-11-03] MEDS ORDERED: LIDODERM 5% PATCH TD PRN (22:30)
[2018-11-03] MEDS ORDERED: ONDANSETRON 2MG/ML, 2ML IVPush ONE (22:30)
[2018-11-03] MEDS ORDERED: hydrALAzine 20 MG/ML, 1ML IVPush PRN (22:30)
[2018-11-03] MEDS ORDERED: ONDANSETRON ODT 4 MG PO PRN (22:30)
[2018-11-03] MEDS ORDERED: MORPHINE SULFATE 4 MG/ML, 1ML ONE (22:32)
--- NOTE | 2018-11-03 22:34 | NUR ---
ASKED SILVIA PA FOR PAIN MEDS, ONE TIME DOSE TO BE ORDERED FOR 10/10 PAIN PT VOMIT X 1.
[2018-11-03] MEDS ORDERED: MORPHINE SULFATE 4 MG/ML, 1ML IVPush ONE (23:00)
--- NOTE | 2018-11-03 23:20 | NUR ---
PT. CALLED THIS RN TO ROOM AND STATED THAT HE FELT HIS BLOOD SUGAR WAS GETTING LOW. FSBS CHECKED AND WAS 51. JUICE'S PROVIDED TO PT. AND CALLED KEVEN CISNEROS; UNABLE TO REACH BLAYNE. MESSAGE LEFT VIA PHONE FOR BLAYNE. PT. WAS TRANSPORTED TO FLOOR BY EDT; CALLED DANIEL HALEY ON FLOOR TO UPDATED HER ON THIS.
[2018-11-04] MEDS ORDERED: DEXTROSE 5% 1,000 ML IV SCH (00:30)
[2018-11-04] MEDS ORDERED: D5%-0.9% NACL 500 ML IV SCH (00:30)
[2018-11-04] MEDS: OXYcodone IR 5MG TABLET PO PRN ×6 (00:32→21:28)
[2018-11-04] MEDS: CALCIUM ACETATE 667 MG CAPSULE PO SCH ×4 (00:32→20:22)
[2018-11-04] MEDS: HEPARIN 5,000 UNITS/ML, 1ML SQ SCH ×3 (00:32→17:16)
[2018-11-04] MEDS ORDERED: DEXTROSE 4 GM TAB.CHEW PO PRN (01:00)
[2018-11-04] MEDS ORDERED: DEXTROSE 50%, 50ML SYRINGE IVPush PRN ×2 (01:00)
[2018-11-04] MEDS ORDERED: GLUCAGON 1 MG IM PRN (01:00)
[2018-11-04 01:44] LABS: BASOPHILS # (AUTO) 0.04 x10^3/uL (0-0.1); BASOPHILS % (AUTO) 1 % (0-1); EOSINOPHILS # (AUTO) 0.18 x10^3/uL (0-0.4); EOSINOPHILS % (AUTO) 4 % (1-7); LYMPHOCYTES # (AUTO) 0.92 x10^3/uL (1-3.4); LYMPHOCYTES % (AUTO) 18 % (22-44); MD NO; MEAN CORPUSCULAR HEMOGLOBIN 30.4 pg (27.5-34.5); MEAN CORPUSCULAR HGB CONC 33.3 g/dL (33.2-36.2); MEAN CORPUSCULAR VOLUME 91.1 fL (81-97); MONOCYTES % (AUTO) 8 % (2-9); NEUTROPHILS % (AUTO) 70 % (42-75); PLATELET COUNT 248 x10^3/uL (130-400); RED CELL DISTRIBUTION WIDTH 14.4 % (9.4-14.8)
[2018-11-04 01:53] LABS: ANION GAP 9 mmol/L (5-15); CALCIUM 8.4 mg/dL (8.5-10.1); CHLORIDE 101 mmol/L (98-107); CREATININE 6.88 mg/dL (0.7-1.3)
[2018-11-04 01:57] LABS: TROPONIN I 0.074 ng/mL (0.000-0.045)
[2018-11-04 04:05] VITALS: BP 184/87
[2018-11-04 05:20] VITALS: BP 146/73
[2018-11-04 07:41] VITALS: BP 150/73
[2018-11-04 08:25] LABS: TROPONIN I 0.088 ng/mL (0.000-0.045)
[2018-11-04] MEDS: SEVELAMER CARBONATE 800MG TAB PO SCH ×3 (08:55→17:16)
[2018-11-04] MEDS: SODIUM CHLORIDE FLUSH 10ML SYR IVF SCH ×2 (08:56→20:20)
[2018-11-04] MEDS: LOSARTAN 25MG TABLET PO SCH (08:56)
[2018-11-04] MEDS ORDERED: SODIUM CHLORIDE 0.9% 1,000 ML IV SCH (09:00)
[2018-11-04] MEDS ORDERED: ARANESP 200 MCG/ML **ESRD SQ SCH (10:00)
[2018-11-04] MEDS: INSULIN LISPRO 100 UNITS/ML, PEN SQ-INSULIN SCH ×3 (11:00→20:20)
[2018-11-04 11:30] LABS: INTERNATIONAL NORMALIZED RATIO 1.29 (0.93-1.1); PROTHROMBIN TIME 13.4 Seconds (9.6-11.5)
[2018-11-04] MEDS ORDERED: PHARMACY MAY ADJ FOR RENAL FX MC PRN (15:00)
[2018-11-04 15:35] VITALS: BP 132/73
[2018-11-04] MEDS ORDERED: GABAPENTIN 300 MG CAPSULE PO SCH ×3 (16:00→22:00)
[2018-11-04] MEDS ORDERED: CARV6.252 PO (16:13)
[2018-11-04] MEDS ORDERED: WARFARIN 10 MG TABLET PO-COUM ONE (18:00)
[2018-11-04 20:13] VITALS: BP 141/77
[2018-11-05] MEDS: HEPARIN 5,000 UNITS/ML, 1ML SQ SCH ×2 (00:24→09:06)
[2018-11-05] MEDS: OXYcodone IR 5MG TABLET PO PRN ×3 (02:06→13:44)
[2018-11-05 02:14] VITALS: BP 136/69
[2018-11-05 06:30] LABS: BASOPHILS # (AUTO) 0.03 x10^3/uL (0-0.1); BASOPHILS % (AUTO) 1 % (0-1); EOSINOPHILS # (AUTO) 0.18 x10^3/uL (0-0.4); EOSINOPHILS % (AUTO) 4 % (1-7); LYMPHOCYTES # (AUTO) 1.11 x10^3/uL (1-3.4); LYMPHOCYTES % (AUTO) 25 % (22-44); MD NO; MEAN CORPUSCULAR HEMOGLOBIN 30.2 pg (27.5-34.5); MEAN CORPUSCULAR HGB CONC 32.9 g/dL (33.2-36.2); MEAN PLATELET VOLUME 7.2 fL (7.4-10.4); MONOCYTES # (AUTO) 0.35 x10^3/uL (0.2-0.8); MONOCYTES % (AUTO) 8 % (2-9); NEUTROPHILS # (AUTO) 2.72 x10^3/uL (1.8-6.8); NEUTROPHILS % (AUTO) 62 % (42-75); PLATELET COUNT 305 x10^3/uL (130-400); RED BLOOD COUNT 3.01 x10^6/uL (4.38-5.82); RED CELL DISTRIBUTION WIDTH 15.6 % (9.4-14.8)
[2018-11-05 06:34] LABS: ALBUMIN 2.5 g/dL (3.4-5.0); ANION GAP 5 mmol/L (5-15); CALCIUM 8.7 mg/dL (8.5-10.1); CHLORIDE 98 mmol/L (98-107)
[2018-11-05 06:39] LABS: INTERNATIONAL NORMALIZED RATIO 1.24 (0.93-1.1); PROTHROMBIN TIME 12.9 Seconds (9.6-11.5); TROPONIN I 0.095 ng/mL (0.000-0.045)
[2018-11-05] MEDS: INSULIN LISPRO 100 UNITS/ML, PEN SQ-INSULIN SCH ×2 (07:00→12:05)
[2018-11-05 07:42] VITALS: BP 96/57
[2018-11-05] MEDS ORDERED: CALCITRIOL 0.25 MCG CAPSULE PO SCH (09:00)
[2018-11-05] MEDS ORDERED: WARFARIN SODIUM 6 MG PO SCH (09:00)
[2018-11-05] MEDS: CALCIUM ACETATE 667 MG CAPSULE PO SCH (09:06)
[2018-11-05] MEDS: SEVELAMER CARBONATE 800MG TAB PO SCH ×2 (09:06→11:36)
[2018-11-05] MEDS: SODIUM CHLORIDE FLUSH 10ML SYR IVF SCH (09:09)
[2018-11-05] MEDS: LOSARTAN 25MG TABLET PO SCH (09:10)
[2018-11-05 13:09] VITALS: BP 143/79
[2018-11-05] MEDS ORDERED: WARFARIN 7.5 MG TABLET PO-COUM ONE (18:00)
== END 2018-11-05 15:38 | disposition left against medical advice (07) | DRG 640 ==
LOC: ED 21:38 → EDIP 21:48 → 4EST 23:36
PROVIDERS: ADMIT Internal Medicine; ATTEND Internal Medicine
PROC: 5A1D70Z Performance of Urinary Filtration, Intermittent, Less than 6 Hours Per Day (ICD-10-PCS; principal; 2018-11-04)
DX: E87.5 Hyperkalemia (principal); N18.6 End stage renal disease; I13.2 Hypertensive heart and chronic kidney disease with heart failure and with stage 5 chronic kidney disease, or end stage renal disease; D68.59 Other primary thrombophilia; E44.1 Mild protein-calorie malnutrition; F11.20 Opioid dependence, uncomplicated; J98.11 Atelectasis; R18.8 Other ascites; E87.1 Hypo-osmolality and hyponatremia; D63.1 Anemia in chronic kidney disease; E87.70 Fluid overload, unspecified; E11.22 Type 2 diabetes mellitus with diabetic chronic kidney disease; E11.40 Type 2 diabetes mellitus with diabetic neuropathy, unspecified; E11.51 Type 2 diabetes mellitus with diabetic peripheral angiopathy without gangrene; G72.9 Myopathy, unspecified; E11.42 Type 2 diabetes mellitus with diabetic polyneuropathy; E78.5 Hyperlipidemia, unspecified; Z53.21 Procedure and treatment not carried out due to patient leaving prior to being seen by health care provider; G54.6 Phantom limb syndrome with pain; G89.29 Other chronic pain; I35.0 Nonrheumatic aortic (valve) stenosis; I50.9 Heart failure, unspecified; Z83.3 Family history of diabetes mellitus; Z68.20 Body mass index [BMI] 20.0-20.9, adult; Z86.14 Personal history of Methicillin resistant Staphylococcus aureus infection; Z89.511 Acquired absence of right leg below knee; Z91.15 Patient's noncompliance with renal dialysis; Z91.19 Patient's noncompliance with other medical treatment and regimen; Z95.2 Presence of prosthetic heart valve; Z99.2 Dependence on renal dialysis; Z90.49 Acquired absence of other specified parts of digestive tract; Z88.8 Allergy status to other drugs, medicaments and biological substances
CPT/HCPCS: 36415; 71045; 80048; 80053; 80069; 82728; 82962; 83540; 83550; 83880; 84484; 85025; 85610; 86704; 86706; 87340; 93005; 93308; 93325; 96374; 96375; G0378; J0882; J1644; J1815; J2405; Q0162; J0360; J7030; J7042

== ENCOUNTER 2019-01-19 18:24 | Emergency (ER) | payer MEDICAID ==
[~2019-01-19] VITALS: Ht 177.8 cm; Wt 64.0 kg
[~2019-01-19 18:24] MED LIST changes: +CARV6.252 PO; -DEXTROSE 50%, 50ML VIAL ONE
--- NOTE | 2019-01-19 18:36 | NUR ---
EKG IN TRIAGE. TO LOBBY BY WC WITH FAMILY.
--- NOTE | 2019-01-19 18:42 | NUR ---
RETINAL SURGEON: attempted to call patient from lobby to room, no answer.
[2019-01-19] MEDS ORDERED: HYDROcodone/APAP 5/325 TABLET ONE (19:56)
[2019-01-19] MEDS ORDERED: HYDROcodone/APAP 5/325 TABLET PO ONE (20:00)
--- NOTE | 2019-01-19 20:01 | NUR ---
CHARMAINE RN ASSISTING PRIMARY DANIEL ALFARO WITH MEDICATION ADMINISTRATION ONLY. IN TO MEDICATE PT FOR 10/10 ABD AND BACK PAIN PER ERP ORDER. PT STATES "I CAN'T TAKE THE NORCO OR ANY PAIN PILLS WITH MY DIALYSIS, STAYS IN MY SYSTEM TOO LONG, CAN YOU ASK THEM TO GIVE ME A SHOT? THEY USUALLY DO DILAUDID OR MORPHINE." TO DISCUSS WITH PRIMARY DANIEL ALFARO AND ERP. CALL LIGHT IN REACH. FALL PRECAUTIONS IN PLACE.
--- NOTE | 2019-01-19 20:05 | NUR ---
CHARMAINE RN. DISCUSSED MEDICATION REQUEST WITH MANOHAR RANDOLPH AT THIS TIME, AWAITING ORDERS. NORCO RETURNED, NOT ADMINISTERED. DISCUSSED ORDERS/PT REQUEST WITH PRIMARY DOMINIC SANCHEZ, AWARE. REPORT AND CARE BACK TO PRIMARY RN.
[2019-01-19] MEDS ORDERED: HYDROmorphone 2 MG/ML, 1ML ONE (20:14)
--- NOTE | 2019-01-19 20:25 | NUR ---
PT RESTING IN ROOM. NO ACUTE DISTRESS NOTED. CALL LIGHT IN PLACE. DR HESS HAS BEEN IN ROOM TO UPDATE PATIENT. WILL CONTINUE TO MONITOR.
[2019-01-19] MEDS ORDERED: HYDROmorphone 1 MG/ML, 1ML INJ IM ONE (20:30)
[2019-01-19 20:34] LABS: BASOPHILS # (AUTO) 0.03 x10^3/uL (0-0.1); BASOPHILS % (AUTO) 1 % (0-1); EOSINOPHILS # (AUTO) 0.56 x10^3/uL (0-0.4); EOSINOPHILS % (AUTO) 9 % (1-7); LYMPHOCYTES % (AUTO) 14 % (22-44); MD NO; MEAN CORPUSCULAR HEMOGLOBIN 29.6 pg (27.5-34.5); MEAN CORPUSCULAR HGB CONC 32.3 g/dL (33.2-36.2); MEAN CORPUSCULAR VOLUME 91.8 fL (81-97); MEAN PLATELET VOLUME 6.7 fL (7.4-10.4); MONOCYTES # (AUTO) 0.48 x10^3/uL (0.2-0.8); MONOCYTES % (AUTO) 7 % (2-9); NEUTROPHILS # (AUTO) 4.54 x10^3/uL (1.8-6.8); NEUTROPHILS % (AUTO) 70 % (42-75); PLATELET COUNT 363 x10^3/uL (130-400); RED BLOOD COUNT 2.92 x10^6/uL (4.38-5.82); RED CELL DISTRIBUTION WIDTH 16.4 % (9.4-14.8)
[2019-01-19] MEDS ORDERED: WARF3TAB52 PO (20:36)
[2019-01-19] MEDS ORDERED: ASPI-496 PO (20:38)
--- NOTE | 2019-01-19 20:41 | NUR ---
Dressing removed from right stump where patient has a ampuation.
--- NOTE | 2019-01-19 20:42 | NUR ---
AGUSTÍN Joy aware of VS
[2019-01-19 20:45] LABS: ALANINE AMINOTRANSFERASE 8 U/L (12-78); ALBUMIN 2.1 g/dL (3.4-5.0); ANION GAP 10 mmol/L (5-15); CALCIUM 7.6 mg/dL (8.5-10.1); CHLORIDE 100 mmol/L (98-107)
[2019-01-19 20:50] LABS: ALKALINE PHOSPHATASE 215 U/L (45-117); BILIRUBIN,TOTAL 0.4 mg/dL (0.2-1.0); TOTAL PROTEIN 7.3 g/dL (6.4-8.2); TROPONIN I 0.051 ng/mL (0.000-0.045)
--- NOTE | 2019-01-19 21:30 | NUR ---
WOUND DRESSING CHANGED PER PATIENT [employer] USED FOR DRESSING. CALL LIGHT IN PLACE. NO ACUTE DISTRESS NOTED. WILL CONTINUE TO MONITOR.
[2019-01-19 22:13] VITALS: BP 157/72
== END 2019-01-19 22:15 | disposition home or self-care (01) ==
LOC: ED 20:54
DX: S81.801A Unspecified open wound, right lower leg, initial encounter (principal); I13.2 Hypertensive heart and chronic kidney disease with heart failure and with stage 5 chronic kidney disease, or end stage renal disease; E11.22 Type 2 diabetes mellitus with diabetic chronic kidney disease; I50.9 Heart failure, unspecified; N18.6 End stage renal disease; D63.1 Anemia in chronic kidney disease; R07.89 Other chest pain; X58.XXXA Exposure to other specified factors, initial encounter; Y93.89 Activity, other specified; Y92.89 Other specified places as the place of occurrence of the external cause; Y99.8 Other external cause status
CPT/HCPCS: 36415; 71045; 73590; 80053; 84484; 85025; 93005; 96372; 99284; J1170

== ENCOUNTER 2019-01-21 02:08 | Inpatient (IN) | payer MEDICAID ==
[~2019-01-21] VITALS: Ht 177.8 cm; Wt 64.9 kg
[~2019-01-21 02:08] MED LIST changes: +ASPI-496 PO; +WARF3TAB52 PO
--- NOTE | 2019-01-21 02:27 | NUR ---
PT BIB [facility] FOR LOWER BACK PAIN AND FANTOM LIMB PAIN TO RIGHT LOWER LEG. PT WAS HERE FRIDAY FOR SAME. PT HAD A FALL ABOUT 3-4 WEEKS AGO AND INJURED RIBS AND SPLEEN. PT MEDICATED WITH 4 MG ZOFRAN AND 4 MG MORPHINE. BP ELEVATED. PT ON 2 L O2 FOR COMFORT
[2019-01-21] MEDS ORDERED: OXYcodone/APAP 5/325MG TABLET PO ONE (02:30)
[2019-01-21] MEDS ORDERED: OXYcodone/APAP 5/325MG TABLET ONE (02:35)
--- NOTE | 2019-01-21 02:40 | NUR ---
PT REQUESTING IV PAIN MEDICATION BECAUSE ORAL PAIN MEDS MAKE HIM ITCHY. PT ADVISED THAT MD ORDERED PERCOCET FOR PAIN. PT AGREES TO TAKE MEDICATION. TECH AT BEDSIDE FOR EKG. CALL LIGHT IN REACH
[2019-01-21 02:51] LABS: BASOPHILS # (AUTO) 0.03 x10^3/uL (0-0.1); BASOPHILS % (AUTO) 1 % (0-1); EOSINOPHILS # (AUTO) 0.67 x10^3/uL (0-0.4); EOSINOPHILS % (AUTO) 10 % (1-7); LYMPHOCYTES # (AUTO) 0.92 x10^3/uL (1-3.4); LYMPHOCYTES % (AUTO) 14 % (22-44); MD NO; MEAN CORPUSCULAR HEMOGLOBIN 29.8 pg (27.5-34.5); MEAN CORPUSCULAR HGB CONC 33.1 g/dL (33.2-36.2); MONOCYTES # (AUTO) 0.55 x10^3/uL (0.2-0.8); MONOCYTES % (AUTO) 8 % (2-9); NEUTROPHILS # (AUTO) 4.52 x10^3/uL (1.8-6.8); NEUTROPHILS % (AUTO) 68 % (42-75); PLATELET COUNT 325 x10^3/uL (130-400); RED CELL DISTRIBUTION WIDTH 16.2 % (9.4-14.8)
[2019-01-21 02:59] LABS: INTERNATIONAL NORMALIZED RATIO 1.1 (0.93-1.1); PROTHROMBIN TIME 11.5 Seconds (9.6-11.5)
[2019-01-21 03:02] LABS: ALBUMIN 2.3 g/dL (3.4-5.0); ANION GAP 10 mmol/L (5-15); CALCIUM 7.6 mg/dL (8.5-10.1); CHLORIDE 99 mmol/L (98-107)
[2019-01-21 03:42] LABS: HCT (SEDRATE) 25.2 % (39.2-51.8)
--- NOTE | 2019-01-21 04:09 | NUR ---
PT REQUESTING MORE PAIN MEDICATION AFTER XRAY. ALL TESTS RESULTED. MD TO RE EVALUATE.
[2019-01-21] MEDS ORDERED: VANCOMYCIN PER PHARMACY MC PRN ×2 (04:30→06:30)
[2019-01-21] MEDS ORDERED: MORPHINE SULFATE 4 MG/ML, 1ML ONE (04:30)
[2019-01-21] MEDS ORDERED: CEFTRIAXONE PMX 1GM/50ML 50 ML IV ONE (04:30)
[2019-01-21] MEDS ORDERED: MORPHINE SULFATE 4 MG/ML, 1ML IVPush PRN (04:30)
[2019-01-21] MEDS ORDERED: HYDR-3342 PO (04:36)
[2019-01-21] MEDS ORDERED: DIPH25CA61 PO (04:38)
[2019-01-21] MEDS ORDERED: CELE100C PO (04:38)
[2019-01-21] MEDS ORDERED: HYDR-3341 PO (04:38)
[2019-01-21] MEDS ORDERED: CEFTRIAXONE PMX 1GM/50ML 50 ML ONE (05:06)
--- NOTE | 2019-01-21 05:19 | NUR ---
LAB AT BEDSIDE FOR .
[2019-01-21 06:04] VITALS: BP 171/81
[2019-01-21] MEDS ORDERED: PROMETHAZINE 25 MG/ML, 1ML IM PRN (06:30)
[2019-01-21] MEDS ORDERED: DOCUSATE 100 MG CAPSULE PO PRN (06:30)
[2019-01-21] MEDS ORDERED: LABETALOL 5MG/ML, 20ML IVPush PRN (06:30)
[2019-01-21] MEDS ORDERED: BISACODYL 10 MG SUPP PR PRN (06:30)
[2019-01-21] MEDS ORDERED: POLYETHYLENE GLYCOL 17 GM PACKET PO PRN (06:30)
[2019-01-21] MEDS ORDERED: ONDANSETRON ODT 4 MG PO PRN (06:30)
[2019-01-21] MEDS ORDERED: hydrALAzine 20 MG/ML, 1ML IVPush PRN (06:30)
[2019-01-21] MEDS ORDERED: ONDANSETRON 2MG/ML, 2ML IVPush PRN (06:30)
[2019-01-21 07:48] LABS: FREE T4 (FREE THYROXINE) 1.04 ng/dL (0.76-1.46); THYROID STIMULATING HORMONE 5.32 mIU/L (0.358-3.740)
[2019-01-21] MEDS: morphine SULFATE 10 MG/ML, 1ML IVPush PRN ×4 (07:50→21:38)
[2019-01-21] MEDS: PIPERACILLIN/TAZO/PMX 2.25GM 50 ML IV SCH ×2 (07:52→17:20)
[2019-01-21] MEDS ORDERED: VANCOMYCIN 1,300 MG in SODIUM CHLORIDE 0.9% 250 ML IV ONE (08:00)
[2019-01-21 08:02] VITALS: BP 163/77
[2019-01-21] MEDS: CARVEDILOL 6.25 MG TABLET PO SCH ×2 (09:00→20:38)
[2019-01-21] MEDS: CALCIUM ACETATE 667 MG CAPSULE PO SCH ×3 (09:01→20:38)
[2019-01-21] MEDS: ASPIRIN 81 MG TABLET EC PO SCH (09:01)
[2019-01-21] MEDS: SEVELAMER CARBONATE 800MG TAB PO SCH ×3 (09:03→17:24)
[2019-01-21] MEDS: DARBEPOETIN 60 MCG/ML SQ SCH (11:36)
[2019-01-21] MEDS: DIPHENHYDRAMINE 25 MG CAPSULE PO SCH ×3 (11:39→20:40)
[2019-01-21] MEDS: WARFARIN HIGH DOSE PROTOCOL XX SCH (11:43)
[2019-01-21 13:20] VITALS: BP 152/81
[2019-01-21] MEDS ORDERED: WARFARIN 10 MG TABLET PO-COUM SCH (18:00)
[2019-01-21 18:32] VITALS: BP 155/77
[2019-01-22 00:37] VITALS: BP 171/74
[2019-01-22] MEDS: morphine SULFATE 10 MG/ML, 1ML IVPush PRN ×6 (00:42→19:38)
[2019-01-22] MEDS: PIPERACILLIN/TAZO/PMX 2.25GM 50 ML IV SCH ×3 (02:08→18:06)
[2019-01-22 05:15] LABS: BASOPHILS # (AUTO) 0.03 x10^3/uL (0-0.1); BASOPHILS % (AUTO) 1 % (0-1); EOSINOPHILS # (AUTO) 0.47 x10^3/uL (0-0.4); EOSINOPHILS % (AUTO) 8 % (1-7); LYMPHOCYTES # (AUTO) 0.71 x10^3/uL (1-3.4); LYMPHOCYTES % (AUTO) 13 % (22-44); MD NO; MEAN CORPUSCULAR HEMOGLOBIN 28.8 pg (27.5-34.5); MEAN CORPUSCULAR HGB CONC 31.5 g/dL (33.2-36.2); MEAN CORPUSCULAR VOLUME 91.3 fL (81-97); MEAN PLATELET VOLUME 6.9 fL (7.4-10.4); MONOCYTES # (AUTO) 0.44 x10^3/uL (0.2-0.8); MONOCYTES % (AUTO) 8 % (2-9); NEUTROPHILS # (AUTO) 3.98 x10^3/uL (1.8-6.8); NEUTROPHILS % (AUTO) 71 % (42-75); PLATELET COUNT 293 x10^3/uL (130-400); RED BLOOD COUNT 2.67 x10^6/uL (4.38-5.82); RED CELL DISTRIBUTION WIDTH 16.2 % (9.4-14.8)
[2019-01-22 05:27] LABS: CHLORIDE 103 mmol/L (98-107)
[2019-01-22 05:28] LABS: HEMOGLOBIN A1C 4.7 % (4.2-6.3)
[2019-01-22 05:29] LABS: INTERNATIONAL NORMALIZED RATIO 1.14 (0.93-1.1); PROTHROMBIN TIME 11.9 Seconds (9.6-11.5)
[2019-01-22 05:37] LABS: ALBUMIN 1.8 g/dL (3.4-5.0); ALKALINE PHOSPHATASE 171 U/L (45-117); ANION GAP 8 mmol/L (5-15); BILIRUBIN,TOTAL 0.4 mg/dL (0.2-1.0); CALCIUM 7.7 mg/dL (8.5-10.1); CHOL/HDL RATIO 3.5; CHOLESTEROL, TOTAL 105 mg/dL (140-239); CREATININE 6.57 mg/dL (0.7-1.3); HDL CHOL % 29 % (26-37); HDL CHOLESTEROL (DIRECT) 30 mg/dL (40-60); LDL CHOLESTEROL,CALCULATED 62 mg/dL (54-169); LDL/HDL RATIO 2.1 (0.5-3.0); TOTAL PROTEIN 6.2 g/dL (6.4-8.2); TRIGLYCERIDES 63 mg/dL (50-200); VLDL CHOLESTEROL 13 mg/dL (0-25)
[2019-01-22 05:39] LABS: ALANINE AMINOTRANSFERASE < 6 U/L (12-78)
[2019-01-22] MEDS: DIPHENHYDRAMINE 25 MG CAPSULE PO SCH ×4 (06:00→21:02)
[2019-01-22 07:40] VITALS: BP 143/74
[2019-01-22] MEDS: SEVELAMER CARBONATE 800MG TAB PO SCH ×3 (08:00→15:55)
[2019-01-22] MEDS: CARVEDILOL 6.25 MG TABLET PO SCH ×2 (09:23→21:01)
[2019-01-22] MEDS: ASPIRIN 81 MG TABLET EC PO SCH (09:23)
[2019-01-22] MEDS: CALCIUM ACETATE 667 MG CAPSULE PO SCH ×3 (09:23→21:01)
[2019-01-22] MEDS: WARFARIN HIGH DOSE PROTOCOL XX SCH (12:00)
[2019-01-22 14:46] VITALS: BP 134/66
[2019-01-22] MEDS ORDERED: LORazepam 2 MG/ML, 1ML IVPush ONE (15:00)
[2019-01-22] MEDS ORDERED: WARFARIN 7.5 MG TABLET PO-COUM SCH (18:00)
[2019-01-22 19:58] VITALS: BP 136/77
[2019-01-23] MEDS: morphine SULFATE 10 MG/ML, 1ML IVPush PRN ×6 (00:17→20:40)
[2019-01-23 00:19] VITALS: BP 113/61
[2019-01-23] MEDS: PIPERACILLIN/TAZO/PMX 2.25GM 50 ML IV SCH ×3 (01:33→21:51)
[2019-01-23 05:33] LABS: INTERNATIONAL NORMALIZED RATIO 1.42 (0.93-1.1); PROTHROMBIN TIME 14.7 Seconds (9.6-11.5)
[2019-01-23] MEDS: DIPHENHYDRAMINE 25 MG CAPSULE PO SCH ×4 (06:12→21:00)
[2019-01-23] MEDS: SEVELAMER CARBONATE 800MG TAB PO SCH ×3 (08:00→16:31)
[2019-01-23 08:28] VITALS: BP 123/55
[2019-01-23] MEDS: CARVEDILOL 6.25 MG TABLET PO SCH ×2 (09:00→20:40)
[2019-01-23] MEDS ORDERED: PHARMACOKINETIC MONITORING MC PRN (09:30)
[2019-01-23] MEDS ORDERED: PHARMACOKINETIC CONSULTATION MC ONE (09:30)
[2019-01-23] MEDS ORDERED: LORazepam 2 MG/ML, 1ML IVPush ONE (10:00)
[2019-01-23] MEDS: ASPIRIN 81 MG TABLET EC PO SCH (11:47)
[2019-01-23] MEDS: CALCIUM ACETATE 667 MG CAPSULE PO SCH ×3 (11:47→20:40)
[2019-01-23] MEDS: WARFARIN HIGH DOSE PROTOCOL XX SCH (12:00)
[2019-01-23 13:55] VITALS: BP 113/49
[2019-01-23] MEDS ORDERED: VANCOMYCIN 1,300 MG in SODIUM CHLORIDE 0.9% 250 ML IV ONE (14:00)
[2019-01-23] MEDS ORDERED: LORazepam 2 MG/ML, 1ML ONE (15:15)
[2019-01-23] MEDS ORDERED: WARFARIN 7.5 MG TABLET PO-COUM SCH (18:00)
[2019-01-23 19:13] VITALS: BP 118/71
[2019-01-24 00:55] VITALS: BP 119/66
[2019-01-24] MEDS: morphine SULFATE 10 MG/ML, 1ML IVPush PRN ×5 (01:35→19:48)
[2019-01-24] MEDS: PIPERACILLIN/TAZO/PMX 2.25GM 50 ML IV SCH ×3 (05:29→23:21)
[2019-01-24] MEDS: DIPHENHYDRAMINE 25 MG CAPSULE PO SCH ×4 (05:35→19:41)
[2019-01-24 05:47] LABS: BASOPHILS # (AUTO) 0.02 x10^3/uL (0-0.1); BASOPHILS % (AUTO) 0 % (0-1); EOSINOPHILS # (AUTO) 0.46 x10^3/uL (0-0.4); EOSINOPHILS % (AUTO) 9 % (1-7); LYMPHOCYTES # (AUTO) 0.74 x10^3/uL (1-3.4); LYMPHOCYTES % (AUTO) 14 % (22-44); MD NO; MEAN CORPUSCULAR HEMOGLOBIN 29.1 pg (27.5-34.5); MEAN CORPUSCULAR HGB CONC 31.6 g/dL (33.2-36.2); MEAN PLATELET VOLUME 7.4 fL (7.4-10.4); MONOCYTES % (AUTO) 10 % (2-9); NEUTROPHILS # (AUTO) 3.54 x10^3/uL (1.8-6.8); NEUTROPHILS % (AUTO) 67 % (42-75); PLATELET COUNT 309 x10^3/uL (130-400); RED BLOOD COUNT 2.66 x10^6/uL (4.38-5.82); RED CELL DISTRIBUTION WIDTH 15.9 % (9.4-14.8)
[2019-01-24 05:54] LABS: ALANINE AMINOTRANSFERASE 14 U/L (12-78); ALBUMIN 1.9 g/dL (3.4-5.0); ANION GAP 6 mmol/L (5-15); CHLORIDE 105 mmol/L (98-107); CREATININE 5.73 mg/dL (0.7-1.3)
[2019-01-24 05:56] LABS: ALKALINE PHOSPHATASE 383 U/L (45-117); BILIRUBIN,TOTAL 0.4 mg/dL (0.2-1.0); TOTAL PROTEIN 6.7 g/dL (6.4-8.2)
[2019-01-24 06:01] LABS: INTERNATIONAL NORMALIZED RATIO 2.47 (0.93-1.1)
[2019-01-24 06:35] VITALS: BP 121/63
[2019-01-24] MEDS ORDERED: LORazepam 2 MG/ML, 1ML IVPush ONE (09:00)
[2019-01-24] MEDS: CALCIUM ACETATE 667 MG CAPSULE PO SCH ×4 (09:11→19:48)
[2019-01-24] MEDS: SEVELAMER CARBONATE 800MG TAB PO SCH ×4 (09:11→16:51)
[2019-01-24] MEDS: ASPIRIN 81 MG TABLET EC PO SCH (09:11)
[2019-01-24] MEDS: CARVEDILOL 6.25 MG TABLET PO SCH ×2 (09:11→19:48)
[2019-01-24] MEDS: WARFARIN HIGH DOSE PROTOCOL XX SCH (12:00)
[2019-01-24 12:10] VITALS: BP 110/60
[2019-01-24] MEDS ORDERED: WARFARIN 5 MG TABLET PO-COUM SCH (18:00)
[2019-01-24 18:31] VITALS: BP 149/71
[2019-01-25] MEDS: morphine SULFATE 10 MG/ML, 1ML IVPush PRN ×6 (00:34→21:10)
[2019-01-25 00:53] VITALS: BP 172/83
[2019-01-25 02:09] VITALS: BP 113/58
[2019-01-25] MEDS: DIPHENHYDRAMINE 25 MG CAPSULE PO SCH ×4 (06:15→21:52)
[2019-01-25] MEDS: PIPERACILLIN/TAZO/PMX 2.25GM 50 ML IV SCH ×3 (06:20→22:29)
[2019-01-25 06:28] LABS: INTERNATIONAL NORMALIZED RATIO 3.91 (0.93-1.1)
[2019-01-25 06:51] VITALS: BP 156/75
[2019-01-25] MEDS: CALCIUM ACETATE 667 MG CAPSULE PO SCH ×4 (07:53→21:09)
[2019-01-25] MEDS: SEVELAMER CARBONATE 800MG TAB PO SCH ×4 (07:53→16:22)
[2019-01-25] MEDS: CARVEDILOL 6.25 MG TABLET PO SCH ×2 (07:54→21:10)
[2019-01-25] MEDS: ASPIRIN 81 MG TABLET EC PO SCH (07:54)
[2019-01-25] MEDS ORDERED: HOLD COUMADIN MC PRN (08:00)
[2019-01-25] MEDS: WARFARIN HIGH DOSE PROTOCOL XX SCH (11:55)
[2019-01-25 12:25] VITALS: BP 167/84
[2019-01-25 12:30] VITALS: BP 99/65
[2019-01-25] MEDS ORDERED: LIDOCAINE-MPF 1%, 5ML ONE (12:34)
[2019-01-25 19:12] VITALS: BP 165/80
[2019-01-26] MEDS: morphine SULFATE 10 MG/ML, 1ML IVPush PRN ×3 (00:49→07:32)
[2019-01-26 02:13] VITALS: BP 141/74
[2019-01-26 05:38] LABS: ANION GAP 10 mmol/L (5-15); CALCIUM 8.5 mg/dL (8.5-10.1); CHLORIDE 101 mmol/L (98-107); CREATININE 8.13 mg/dL (0.7-1.3)
[2019-01-26 05:39] LABS: VANCOMYCIN,RANDOM 28.4 mcg/mL
[2019-01-26] MEDS: DIPHENHYDRAMINE 25 MG CAPSULE PO SCH ×4 (05:46→21:00)
[2019-01-26 05:52] LABS: MEAN CORPUSCULAR HEMOGLOBIN 28.7 pg (27.5-34.5); MEAN CORPUSCULAR VOLUME 89.8 fL (81-97); MEAN PLATELET VOLUME 6.8 fL (7.4-10.4); PLATELET COUNT 368 x10^3/uL (130-400); RED BLOOD COUNT 3.07 x10^6/uL (4.38-5.82); RED CELL DISTRIBUTION WIDTH 15.8 % (9.4-14.8)
[2019-01-26] MEDS: PIPERACILLIN/TAZO/PMX 2.25GM 50 ML IV SCH (06:07)
[2019-01-26 06:24] LABS: INTERNATIONAL NORMALIZED RATIO 5.96 (0.93-1.1); PROTHROMBIN TIME 58.4 Seconds (9.6-11.5)
[2019-01-26 06:31] LABS: BASOPHILS # (AUTO) 0.05 x10^3/uL (0-0.1); BASOPHILS % (AUTO) 1 % (0-1); EOSINOPHILS # (AUTO) 0.53 x10^3/uL (0-0.4); EOSINOPHILS % (AUTO) 12 % (1-7); LYMPHOCYTES # (AUTO) 0.87 x10^3/uL (1-3.4); LYMPHOCYTES % (AUTO) 20 % (22-44); MD SCAN; MONOCYTES # (AUTO) 0.34 x10^3/uL (0.2-0.8); MONOCYTES % (AUTO) 8 % (2-9); NEUTROPHILS # (AUTO) 2.65 x10^3/uL (1.8-6.8); NEUTROPHILS % (AUTO) 60 % (42-75)
[2019-01-26 06:38] VITALS: BP 137/69
[2019-01-26] MEDS: SEVELAMER CARBONATE 800MG TAB PO SCH ×3 (08:00→17:00)
[2019-01-26] MEDS ORDERED: HOLD COUMADIN MC PRN (08:00)
[2019-01-26] MEDS: CARVEDILOL 6.25 MG TABLET PO SCH ×2 (09:00→21:08)
[2019-01-26] MEDS: CALCIUM ACETATE 667 MG CAPSULE PO SCH ×3 (09:00→21:08)
[2019-01-26] MEDS: ASPIRIN 81 MG TABLET EC PO SCH (09:00)
[2019-01-26] MEDS: WARFARIN HIGH DOSE PROTOCOL XX SCH (12:00)
[2019-01-26] MEDS: OXYcodone IR 5MG TABLET PO PRN ×3 (12:23→21:08)
[2019-01-26 12:41] VITALS: BP 162/70
[2019-01-26] MEDS: CLAV PO SCH (13:01)
[2019-01-26] MEDS: AMOXICILLIN PO SCH (13:01)
[2019-01-26 13:36] LABS: CLOSTRIDIUM DIFFICILE ANTIGEN NEGATIVE; CLOSTRIDIUM DIFFICILE TOXIN NEGATIVE (Negative)
[2019-01-26 20:42] VITALS: BP 181/72
[2019-01-27] MEDS: OXYcodone IR 5MG TABLET PO PRN ×4 (01:09→20:21)
[2019-01-27 02:31] VITALS: BP 138/67
[2019-01-27] MEDS: DIPHENHYDRAMINE 25 MG CAPSULE PO SCH ×4 (05:55→19:40)
[2019-01-27 06:06] LABS: BASOPHILS # (AUTO) 0.03 x10^3/uL (0-0.1); BASOPHILS % (AUTO) 1 % (0-1); EOSINOPHILS % (AUTO) 13 % (1-7); LYMPHOCYTES # (AUTO) 0.86 x10^3/uL (1-3.4); LYMPHOCYTES % (AUTO) 22 % (22-44); MD NO; MEAN CORPUSCULAR HEMOGLOBIN 28.5 pg (27.5-34.5); MEAN CORPUSCULAR HGB CONC 31.7 g/dL (33.2-36.2); MEAN CORPUSCULAR VOLUME 89.6 fL (81-97); MEAN PLATELET VOLUME 6.6 fL (7.4-10.4); MONOCYTES # (AUTO) 0.42 x10^3/uL (0.2-0.8); MONOCYTES % (AUTO) 11 % (2-9); NEUTROPHILS # (AUTO) 2.14 x10^3/uL (1.8-6.8); NEUTROPHILS % (AUTO) 54 % (42-75); PLATELET COUNT 313 x10^3/uL (130-400); RED BLOOD COUNT 2.83 x10^6/uL (4.38-5.82); RED CELL DISTRIBUTION WIDTH 15.9 % (9.4-14.8)
[2019-01-27 06:10] LABS: INTERNATIONAL NORMALIZED RATIO 4.81 (0.93-1.1); PROTHROMBIN TIME 47.5 Seconds (9.6-11.5)
[2019-01-27 06:18] LABS: ANION GAP 9 mmol/L (5-15); CALCIUM 7.9 mg/dL (8.5-10.1); CHLORIDE 106 mmol/L (98-107)
[2019-01-27 06:22] LABS: CREATININE 5.81 mg/dL (0.7-1.3)
[2019-01-27 07:08] VITALS: BP 132/72
[2019-01-27] MEDS ORDERED: HOLD COUMADIN MC PRN (08:00)
[2019-01-27] MEDS: SEVELAMER CARBONATE 800MG TAB PO SCH ×3 (08:00→17:24)
[2019-01-27] MEDS: CALCIUM ACETATE 667 MG CAPSULE PO SCH ×3 (09:00→20:19)
[2019-01-27 10:17] VITALS: BP 113/76
[2019-01-27] MEDS: CARVEDILOL 6.25 MG TABLET PO SCH ×2 (10:28→20:21)
[2019-01-27] MEDS: ASPIRIN 81 MG TABLET EC PO SCH (10:28)
[2019-01-27] MEDS: CLAV PO SCH (10:28)
[2019-01-27] MEDS: AMOXICILLIN PO SCH (10:28)
[2019-01-27] MEDS ORDERED: ERGOCALCIFEROL 50,000 UNIT CAPSULE PO SCH (10:30)
[2019-01-27] MEDS: WARFARIN HIGH DOSE PROTOCOL XX SCH (12:57)
[2019-01-27 14:02] VITALS: BP 116/73
[2019-01-27 18:27] VITALS: BP 153/71
[2019-01-27 20:20] VITALS: BP 161/81
[2019-01-28] MEDS: OXYcodone IR 5MG TABLET PO PRN ×2 (00:47→06:34)
[2019-01-28 01:33] VITALS: BP 132/70
[2019-01-28] MEDS: DIPHENHYDRAMINE 25 MG CAPSULE PO SCH ×2 (06:00→10:57)
[2019-01-28 06:06] LABS: INTERNATIONAL NORMALIZED RATIO 4.33 (0.93-1.1)
[2019-01-28 07:09] VITALS: BP 158/74
[2019-01-28] MEDS: SEVELAMER CARBONATE 800MG TAB PO SCH ×2 (08:00→12:00)
[2019-01-28] MEDS ORDERED: HOLD COUMADIN MC PRN (08:00)
[2019-01-28] MEDS: CARVEDILOL 6.25 MG TABLET PO SCH (09:00)
[2019-01-28] MEDS: ASPIRIN 81 MG TABLET EC PO SCH (09:00)
[2019-01-28] MEDS: CALCIUM ACETATE 667 MG CAPSULE PO SCH (09:00)
[2019-01-28] MEDS ORDERED: AMOX1TAB25 PO (10:03)
[2019-01-28] MEDS: CLAV PO SCH (10:46)
[2019-01-28] MEDS: AMOXICILLIN PO SCH (10:46)
[2019-01-28] MEDS: DARBEPOETIN 60 MCG/ML SQ SCH (12:00)
[2019-01-28] MEDS: WARFARIN HIGH DOSE PROTOCOL XX SCH (12:00)
[2019-01-28 12:59] VITALS: BP 150/71
== END 2019-01-28 15:17 | disposition home or self-care (01) | DRG 564 ==
LOC: ED 02:24 → EDIP 04:28 → 4EST 05:26
PROVIDERS: ADMIT Internal Medicine; ATTEND Internal Medicine
PROC: 5A1D70Z Performance of Urinary Filtration, Intermittent, Less than 6 Hours Per Day (ICD-10-PCS; 2019-01-21)
PROC: 5A1D70Z Performance of Urinary Filtration, Intermittent, Less than 6 Hours Per Day (ICD-10-PCS; 2019-01-23)
PROC: 0W9G3ZZ Drainage of Peritoneal Cavity, Percutaneous Approach (ICD-10-PCS; principal; 2019-01-25)
PROC: 5A1D70Z Performance of Urinary Filtration, Intermittent, Less than 6 Hours Per Day (ICD-10-PCS; 2019-01-26)
PROC: 5A1D70Z Performance of Urinary Filtration, Intermittent, Less than 6 Hours Per Day (ICD-10-PCS; 2019-01-28)
DX: T87.43 Infection of amputation stump, right lower extremity (principal); N18.6 End stage renal disease; D68.59 Other primary thrombophilia; E44.0 Moderate protein-calorie malnutrition; I13.2 Hypertensive heart and chronic kidney disease with heart failure and with stage 5 chronic kidney disease, or end stage renal disease; J98.11 Atelectasis; K76.6 Portal hypertension; L03.115 Cellulitis of right lower limb; N25.81 Secondary hyperparathyroidism of renal origin; R18.8 Other ascites; I82.621 Acute embolism and thrombosis of deep veins of right upper extremity; I82.91 Chronic embolism and thrombosis of unspecified vein; D63.1 Anemia in chronic kidney disease; E11.22 Type 2 diabetes mellitus with diabetic chronic kidney disease; E11.40 Type 2 diabetes mellitus with diabetic neuropathy, unspecified; E11.51 Type 2 diabetes mellitus with diabetic peripheral angiopathy without gangrene; Z68.20 Body mass index [BMI] 20.0-20.9, adult; Z88.8 Allergy status to other drugs, medicaments and biological substances; E55.9 Vitamin D deficiency, unspecified; E78.5 Hyperlipidemia, unspecified; E83.51 Hypocalcemia; E87.5 Hyperkalemia; F42.4 Excoriation (skin-picking) disorder; F63.3 Trichotillomania; I50.9 Heart failure, unspecified; K52.9 Noninfective gastroenteritis and colitis, unspecified; T87.89 Other complications of amputation stump; Y83.5 Amputation of limb(s) as the cause of abnormal reaction of the patient, or of later complication, without mention of misadventure at the time of the procedure; Z79.01 Long term (current) use of anticoagulants; Z83.3 Family history of diabetes mellitus; Z86.14 Personal history of Methicillin resistant Staphylococcus aureus infection; Z87.891 Personal history of nicotine dependence; Z89.511 Acquired absence of right leg below knee; Z95.2 Presence of prosthetic heart valve; Z99.2 Dependence on renal dialysis
CPT/HCPCS: 36415; 49083; 71045; 72072; 80048; 80053; 80061; 80202; 82040; 82306; 83036; 83735; 83970; 84100; 84439; 84443; 85025; 85610; 85651; 86140; 87040; 87070; 87077; 87186; 87205; 87324; 90935; 93005; 93306; 96374; G0378; J0696; J0881; J2543; J3370; J0360; J2060; J2270; J7050

== ENCOUNTER 2019-02-12 22:27 | Emergency (ER) | payer MEDICAID ==
[~2019-02-12] VITALS: Ht 177.8 cm; Wt 69.3 kg
[~2019-02-12 22:27] MED LIST changes: +AMOX1TAB25 PO; +CELE100C PO; +DIPH25CA61 PO; +HYDR-3341 PO; +HYDR-3342 PO; +LISI1TAB23 PO; -LISI1TAB3 PO
[2019-02-12] MEDS ORDERED: ONDANSETRON 2MG/ML, 2ML IVPush ONE (23:00)
[2019-02-12] MEDS ORDERED: MORPHINE SULFATE 4 MG/ML, 1ML ONE (23:00)
[2019-02-12] MEDS ORDERED: ONDANSETRON 2MG/ML, 2ML ONE (23:00)
[2019-02-12] MEDS ORDERED: MORPHINE SULFATE 4 MG/ML, 1ML IVPush PRN (23:00)
[2019-02-12 23:13] LABS: BASOPHILS # (AUTO) 0.03 x10^3/uL (0-0.1); BASOPHILS % (AUTO) 1 % (0-1); EOSINOPHILS % (AUTO) 7 % (1-7); LYMPHOCYTES # (AUTO) 0.82 x10^3/uL (1-3.4); LYMPHOCYTES % (AUTO) 19 % (22-44); MD NO; MEAN CORPUSCULAR HEMOGLOBIN 28.9 pg (27.5-34.5); MEAN CORPUSCULAR HGB CONC 32.1 g/dL (33.2-36.2); MEAN PLATELET VOLUME 6.2 fL (7.4-10.4); MONOCYTES # (AUTO) 0.33 x10^3/uL (0.2-0.8); MONOCYTES % (AUTO) 8 % (2-9); NEUTROPHILS % (AUTO) 65 % (42-75); PLATELET COUNT 289 x10^3/uL (130-400); RED BLOOD COUNT 2.57 x10^6/uL (4.38-5.82)
[2019-02-12 23:26] LABS: ALANINE AMINOTRANSFERASE 9 U/L (12-78); ANION GAP 7 mmol/L (5-15); CALCIUM 7.7 mg/dL (8.5-10.1); CHLORIDE 102 mmol/L (98-107); CREATININE 8.37 mg/dL (0.7-1.3)
[2019-02-12 23:28] LABS: ALKALINE PHOSPHATASE 176 U/L (45-117); BILIRUBIN,TOTAL 0.3 mg/dL (0.2-1.0); TOTAL PROTEIN 7.2 g/dL (6.4-8.2)
[2019-02-12 23:29] LABS: INTERNATIONAL NORMALIZED RATIO 1.16 (0.93-1.1); PROTHROMBIN TIME 12.1 Seconds (9.6-11.5)
[2019-02-13] MEDS ORDERED: HYDROmorphone 2 MG/ML, 1ML IVPush ONE (00:30)
[2019-02-13] MEDS ORDERED: LIDOCAINE-MPF 1%, 5ML ONE (00:55)
[2019-02-13] MEDS ORDERED: HYDROmorphone 1 MG/ML, 1ML VIAL ONE (00:56)
--- NOTE | 2019-02-13 00:58 | NUR ---
[employer] HAS BROUGHT SUPPLIES FOR PARACENTESIS. AWARE.
[2019-02-13] MEDS ORDERED: LIDOCAINE 2%, 20ML INFIL ONE (01:00)
--- NOTE | 2019-02-13 01:27 | NUR ---
PARACENTISIS IN PROGRESS. PT DENIES CURRENT NEEDS. PT REMAINS ON ALL MONITORING.
[2019-02-13 02:20] VITALS: BP 160/96
[2019-02-16] MEDS ORDERED: ERGO500017 PO (11:26)
== END 2019-02-13 02:23 | disposition home or self-care (01) ==
LOC: ED 22:57
DX: G89.29 Other chronic pain (principal); R10.11 Right upper quadrant pain; R10.31 Right lower quadrant pain; R18.8 Other ascites; D53.9 Nutritional anemia, unspecified; E11.22 Type 2 diabetes mellitus with diabetic chronic kidney disease; I13.2 Hypertensive heart and chronic kidney disease with heart failure and with stage 5 chronic kidney disease, or end stage renal disease; I50.9 Heart failure, unspecified; N18.6 End stage renal disease; Z99.2 Dependence on renal dialysis; Z90.49 Acquired absence of other specified parts of digestive tract; Z89.511 Acquired absence of right leg below knee
CPT/HCPCS: 36415; 49083; 80053; 83690; 85025; 85610; 93005; 96374; 96375; 99285; J1170; J2270; J2405

== ENCOUNTER 2019-02-15 01:45 | Inpatient (IN) | payer MEDICAID ==
[~2019-02-15] VITALS: Ht 177.8 cm; Wt 62.3 kg
[2019-02-16 12:40] VITALS: BP 162/74
== END 2019-02-16 15:40 | disposition home or self-care (01) | DRG 425 ==
LOC: ED 02:14 → EDIP 05:25 → 4WST 06:18
PROVIDERS: ADMIT Internal Medicine; ATTEND Internal Medicine
PROC: 0W9G3ZZ Drainage of Peritoneal Cavity, Percutaneous Approach (ICD-10-PCS; principal; 2019-02-15)
PROC: 5A1D70Z Performance of Urinary Filtration, Intermittent, Less than 6 Hours Per Day (ICD-10-PCS; 2019-02-15)
PROC: 5A1D70Z Performance of Urinary Filtration, Intermittent, Less than 6 Hours Per Day (ICD-10-PCS; 2019-02-16)
DX: E87.5 Hyperkalemia (principal); I13.2 Hypertensive heart and chronic kidney disease with heart failure and with stage 5 chronic kidney disease, or end stage renal disease; E43 Unspecified severe protein-calorie malnutrition; E11.22 Type 2 diabetes mellitus with diabetic chronic kidney disease; E11.51 Type 2 diabetes mellitus with diabetic peripheral angiopathy without gangrene; E11.621 Type 2 diabetes mellitus with foot ulcer; F11.20 Opioid dependence, uncomplicated; R18.8 Other ascites; D63.1 Anemia in chronic kidney disease; E11.65 Type 2 diabetes mellitus with hyperglycemia; E21.3 Hyperparathyroidism, unspecified; E87.6 Hypokalemia; E88.89 Other specified metabolic disorders; G89.29 Other chronic pain; H54.61 Unqualified visual loss, right eye, normal vision left eye; I27.20 Pulmonary hypertension, unspecified; I50.9 Heart failure, unspecified; M54.9 Dorsalgia, unspecified; Z66 Do not resuscitate; N18.6 End stage renal disease; Z79.01 Long term (current) use of anticoagulants; Z89.511 Acquired absence of right leg below knee; Z91.14 Patient's other noncompliance with medication regimen; Z86.14 Personal history of Methicillin resistant Staphylococcus aureus infection; Z79.4 Long term (current) use of insulin; Z86.79 Personal history of other diseases of the circulatory system; Z91.15 Patient's noncompliance with renal dialysis; Z91.19 Patient's noncompliance with other medical treatment and regimen; Z95.2 Presence of prosthetic heart valve; Z99.2 Dependence on renal dialysis
CPT/HCPCS: 36415; 74176; 80047; 80048; 80053; 82042; 82306; 82728; 82962; 83540; 83550; 83615; 83690; 83970; 84100; 85025; 85610; 85730; 87070; 87205; 89051; 90935; 93005; 94640; 96372; 96374; G0378; J0881; J1170; J1815; J1885; J2270; Q0163

== ENCOUNTER 2019-02-20 02:14 | Emergency (ER) | payer MEDICAID ==
[~2019-02-20] VITALS: Ht 177.8 cm; Wt 63.0 kg
[2019-02-20 03:53] VITALS: BP 172/70
== END 2019-02-20 04:52 | disposition home or self-care (01) ==
LOC: ED 02:27
DX: G89.29 Other chronic pain (principal); R10.11 Right upper quadrant pain; N18.6 End stage renal disease; Z99.2 Dependence on renal dialysis; Z89.511 Acquired absence of right leg below knee
CPT/HCPCS: 36415; 80053; 83690; 85025; 96372; 99283; J1170

== ENCOUNTER 2019-02-28 20:54 | Inpatient (IN) | payer MEDICAID ==
[~2019-02-28] VITALS: Ht 177.8 cm; Wt 65.1 kg
[2019-03-01 14:00] VITALS: BP 191/99
== END 2019-03-01 15:18 | disposition left against medical advice (07) | DRG 206 ==
LOC: ED 23:08 → EDIP 23:13 → 4WST 03-01 00:09
PROVIDERS: ADMIT Family Medicine; ATTEND Family Medicine
PROC: 5A1D70Z Performance of Urinary Filtration, Intermittent, Less than 6 Hours Per Day (ICD-10-PCS; principal; 2019-03-01)
DX: T82.848A Pain due to vascular prosthetic devices, implants and grafts, initial encounter (principal); E43 Unspecified severe protein-calorie malnutrition; I13.2 Hypertensive heart and chronic kidney disease with heart failure and with stage 5 chronic kidney disease, or end stage renal disease; E11.22 Type 2 diabetes mellitus with diabetic chronic kidney disease; E87.5 Hyperkalemia; D64.9 Anemia, unspecified; E11.51 Type 2 diabetes mellitus with diabetic peripheral angiopathy without gangrene; E78.5 Hyperlipidemia, unspecified; E87.6 Hypokalemia; I50.9 Heart failure, unspecified; N18.6 End stage renal disease; Z79.01 Long term (current) use of anticoagulants; Z83.3 Family history of diabetes mellitus; Z86.14 Personal history of Methicillin resistant Staphylococcus aureus infection; Z86.718 Personal history of other venous thrombosis and embolism; Z86.79 Personal history of other diseases of the circulatory system; Z89.511 Acquired absence of right leg below knee; Z88.8 Allergy status to other drugs, medicaments and biological substances; Z95.2 Presence of prosthetic heart valve; Z99.2 Dependence on renal dialysis; Z90.49 Acquired absence of other specified parts of digestive tract; Z68.20 Body mass index [BMI] 20.0-20.9, adult; Z53.21 Procedure and treatment not carried out due to patient leaving prior to being seen by health care provider; Y83.2 Surgical operation with anastomosis, bypass or graft as the cause of abnormal reaction of the patient, or of later complication, without mention of misadventure at the time of the procedure; Y92.89 Other specified places as the place of occurrence of the external cause; Z76.5 Malingerer [conscious simulation]
CPT/HCPCS: 36415; 80048; 80053; 82330; 83690; 85025; 85610; 90935; 93005; J1644; J1815; J0360; J2270

== ENCOUNTER 2019-07-12 19:20 | Emergency (ER) | payer MEDICAID ==
[~2019-07-12] VITALS: Ht 177.8 cm; Wt 64.2 kg
--- NOTE | 2019-07-12 19:40 | NUR ---
BIB BY MICHAEL FROM HOME. MISPLACED CRUTCH ON STAIRCASE-FELL ROUGHLY 10 FEET ONTO LEFT SIDE (CHEST/HIP) -LOC, +BLOOD THINNER (COUMADIN) NO OBVIOUS ASSESSED TRAUMA BREATH SOUNDS TO DEMINISHED TO BASES BUT EQUAL BILATERALLY
[2019-07-12] MEDS ORDERED: MORPHINE SULFATE 4 MG/ML, 1ML IVPush ONE (21:00)
[2019-07-12] MEDS ORDERED: MORPHINE SULFATE 4 MG/ML, 1ML ONE (21:02)
--- NOTE | 2019-07-12 21:09 | NUR ---
MEDICATED PER EMAR VITAL UPDATEDS REMAINS HYPERTENSIVE (PAIN?)
--- NOTE | 2019-07-12 21:45 | NUR ---
PAIN IMPROVED TO 6/10 ULTRASOUND AT BEDSIDE (EARLIER EXAM STOPPED D/T PATIENT REPORT OF PAIN)
[2019-07-12 23:08] LABS: INTERNATIONAL NORMALIZED RATIO 1.15 (0.93-1.1)
[2019-07-12 23:33] VITALS: BP 162/77
[2019-07-12 23:50] LABS: BASOPHILS # (AUTO) 0.03 x10^3/uL (0-0.1); BASOPHILS % (AUTO) 1 % (0-1); EOSINOPHILS # (AUTO) 0.12 x10^3/uL (0-0.4); EOSINOPHILS % (AUTO) 4 % (1-7); LYMPHOCYTES # (AUTO) 0.78 x10^3/uL (1-3.4); LYMPHOCYTES % (AUTO) 23 % (22-44); MD NO; MEAN CORPUSCULAR HEMOGLOBIN 30.4 pg (27.5-34.5); MEAN CORPUSCULAR HGB CONC 32.8 g/dL (33.2-36.2); MEAN CORPUSCULAR VOLUME 92.7 fL (81-97); MEAN PLATELET VOLUME 7.3 fL (7.4-10.4); MONOCYTES # (AUTO) 0.31 x10^3/uL (0.2-0.8); MONOCYTES % (AUTO) 9 % (2-9); NEUTROPHILS # (AUTO) 2.09 x10^3/uL (1.8-6.8); NEUTROPHILS % (AUTO) 63 % (42-75); PLATELET COUNT 184 x10^3/uL (130-400); RED BLOOD COUNT 3.02 x10^6/uL (4.38-5.82); RED CELL DISTRIBUTION WIDTH 17.1 % (9.4-14.8)
[2019-07-12] MEDS ORDERED: WARF7.5T46 PO (23:57)
[2019-07-13] LABS: ANION GAP 5 mmol/L (5-15); CALCIUM 8.1 mg/dL (8.5-10.1); CHLORIDE 100 mmol/L (98-107)
[2019-07-13 00:12] LABS: CREATININE 5.17 mg/dL (0.7-1.3)
[2019-07-13] MEDS ORDERED: ENOXAPARIN 60 MG/0.6 ML SQ ONE (00:30)
[2019-07-13] MEDS ORDERED: ENOXAPARIN 60 MG/0.6 ML ONE (00:41)
--- NOTE | 2019-07-13 00:49 | NUR ---
TASK RN: PT MEDICATED PER EMAR. PT EDUCATED ON LOVENOX ADMINISTRATION AND DEMONSTRATES UNDERSTANDING. DC EDUCATION PROVIDED, PT DEMONSTRATES UNDERSTANDING. PT TRANSFERRED SELF TO WHEELCHAIR. WHEELED TO DC WITH RN. PROVIDED [employer]ER FOR SAFE TRANSPORT HOME.
== END 2019-07-13 00:52 | disposition home or self-care (01) ==
LOC: ED 23:59 → UNDOADMIN 07-13 00:06 → EDIP 07-13 00:06 → ED 07-13 00:52
DX: S40.012A Contusion of left shoulder, initial encounter (principal); S20.212A Contusion of left front wall of thorax, initial encounter; I82.412 Acute embolism and thrombosis of left femoral vein; I10 Essential (primary) hypertension; E11.9 Type 2 diabetes mellitus without complications; M79.605 Pain in left leg; W01.0XXA Fall on same level from slipping, tripping and stumbling without subsequent striking against object, initial encounter; Y93.89 Activity, other specified; Y92.098 Other place in other non-institutional residence as the place of occurrence of the external cause; Y99.8 Other external cause status
CPT/HCPCS: 36415; 71101; 73030; 73590; 80048; 85025; 85610; 93971; 96372; 96374; 99284; J1650; J2270

== ENCOUNTER 2019-07-15 21:46 | Inpatient (IN) | payer MEDICAID ==
[~2019-07-15] VITALS: Ht 177.8 cm; Wt 68.7 kg
[~2019-07-15 21:46] MED LIST changes: +WARF7.5T46 PO
[2019-07-15] MEDS ORDERED: SODIUM CHLORIDE FLUSH 10ML SYR IVF ONE (22:30)
[2019-07-15] MEDS ORDERED: HYDROmorphone 2 MG/ML, 1ML IVPush ONE (22:30)
[2019-07-15 22:46] LABS: BASOPHILS # (AUTO) 0.04 x10^3/uL (0-0.1); BASOPHILS % (AUTO) 1 % (0-1); EOSINOPHILS # (AUTO) 0.25 x10^3/uL (0-0.4); EOSINOPHILS % (AUTO) 6 % (1-7); LYMPHOCYTES # (AUTO) 0.87 x10^3/uL (1-3.4); LYMPHOCYTES % (AUTO) 21 % (22-44); MD NO; MEAN CORPUSCULAR HGB CONC 32.4 g/dL (33.2-36.2); MEAN CORPUSCULAR VOLUME 92.7 fL (81-97); MEAN PLATELET VOLUME 7.2 fL (7.4-10.4); MONOCYTES # (AUTO) 0.32 x10^3/uL (0.2-0.8); MONOCYTES % (AUTO) 8 % (2-9); NEUTROPHILS % (AUTO) 65 % (42-75); PLATELET COUNT 169 x10^3/uL (130-400); RED BLOOD COUNT 3.17 x10^6/uL (4.38-5.82); RED CELL DISTRIBUTION WIDTH 17.3 % (9.4-14.8)
[2019-07-15] MEDS ORDERED: HYDROmorphone 1 MG/ML, 1ML INJ ONE (22:47)
[2019-07-15 22:55] LABS: INTERNATIONAL NORMALIZED RATIO 1.12 (0.93-1.1); PROTHROMBIN TIME 11.7 Seconds (9.6-11.5)
[2019-07-15 22:58] LABS: ALANINE AMINOTRANSFERASE 9 U/L (12-78); ALBUMIN 2.6 g/dL (3.4-5.0); ANION GAP 6 mmol/L (5-15); CALCIUM 8.1 mg/dL (8.5-10.1); CHLORIDE 100 mmol/L (98-107); CREATININE 8.35 mg/dL (0.7-1.3)
--- NOTE | 2019-07-15 23:00 | NUR ---
PT IN WITH C/O RIB PAIN AND LEFT LEG PAIN. PT HAS HX OF DVT. PT REPORTS NO TRAUMA. REPORTS SOB, DENIES CP. PT PLACED ON ALL MONITORING, 3L NC APPLIED, BED WARMER PROVIDED UPON REQUEST. ALL SAFETY MEASURES IN PLACE. CALL LIGHT WITHIN REACH.
[2019-07-15 23:15] LABS: ALKALINE PHOSPHATASE 150 U/L (45-117); BILIRUBIN,TOTAL 0.5 mg/dL (0.2-1.0); TOTAL PROTEIN 7.9 g/dL (6.4-8.2)
[2019-07-15] MEDS ORDERED: NITROGLYCERIN OINT 2%, 1GM TP ONE ×2 (23:18→23:30)
[2019-07-15] MEDS ORDERED: WARFARIN 5 MG TABLET PO-COUM ONE (23:30)
--- NOTE | 2019-07-15 23:30 | NUR ---
PT MEDICATED PER SEP, PROVIDED WARM BLANKET AND AJ PAW. ALL NEEDS MET AT THIS TIME.
--- NOTE | 2019-07-16 00:03 | NUR ---
PT RESTING ON [employer] WATCHING TV. PROVIDED WATER AND ICE CHIPS UPON REQUEST. ALL MONITORING IN PLACE, CALL LIGHT WITHIN REACH, ALL SAFETY MEASURES IN PLACE.
--- NOTE | 2019-07-16 01:40 | NUR ---
THIS RN NOTIFIED DR. EATON ABOUT PT CONTINUED PAIN. NO NEW ORDERS AT THIS TIME.
[2019-07-16] MEDS ORDERED: CALCIUM GLUCONATE 4.6 MEQ in SODIUM CHLORIDE 0.9% 50 ML IV ONE (02:30)
[2019-07-16] MEDS ORDERED: HYDROcodone/APAP 5/325 TABLET PO PRN (02:30)
[2019-07-16] MEDS ORDERED: ACETAMINOPHEN 325 MG TABLET PO PRN (02:30)
[2019-07-16] MEDS ORDERED: PHARMACY MAY ADJ FOR RENAL FX MC PRN (02:30)
[2019-07-16] MEDS ORDERED: ONDANSETRON 2MG/ML, 2ML IVPush PRN (02:30)
[2019-07-16] MEDS ORDERED: hydrALAzine 20 MG/ML, 1ML IVPush PRN (02:30)
[2019-07-16] MEDS ORDERED: LABETALOL 5MG/ML, 20ML IVPush PRN (02:30)
[2019-07-16] MEDS ORDERED: HYDROmorphone 2 MG/ML, 1ML ONE (03:51)
[2019-07-16] MEDS: HYDROmorphone 2 MG/ML, 1ML IVPush PRN ×5 (03:54→20:30)
--- NOTE | 2019-07-16 03:54 | NUR ---
PT MEDICATED PER SEP. PROVIDED WATER AND ICE CHIPS UPON REQUEST. PT DENIES FURTHER NEEDS AT THIS TIME.
--- NOTE | 2019-07-16 05:05 | NUR ---
PT RESTING ON GURNEY WATCHING TV. DENIES FURTHER NEEDS AT THIS TIME.
[2019-07-16] MEDS ORDERED: DIPHENHYDRAMINE 25 MG CAPSULE ONE (05:39)
[2019-07-16] MEDS: DIPHENHYDRAMINE 25 MG CAPSULE PO SCH ×4 (05:42→21:00)
[2019-07-16 05:44] LABS: BASOPHILS # (AUTO) 0.06 x10^3/uL (0-0.1); BASOPHILS % (AUTO) 1 % (0-1); EOSINOPHILS # (AUTO) 0.24 x10^3/uL (0-0.4); EOSINOPHILS % (AUTO) 6 % (1-7); LYMPHOCYTES # (AUTO) 1.03 x10^3/uL (1-3.4); LYMPHOCYTES % (AUTO) 25 % (22-44); MD NO; MEAN CORPUSCULAR HEMOGLOBIN 30.4 pg (27.5-34.5); MEAN CORPUSCULAR HGB CONC 32.9 g/dL (33.2-36.2); MEAN CORPUSCULAR VOLUME 92.4 fL (81-97); MEAN PLATELET VOLUME 7.1 fL (7.4-10.4); MONOCYTES # (AUTO) 0.31 x10^3/uL (0.2-0.8); MONOCYTES % (AUTO) 8 % (2-9); NEUTROPHILS # (AUTO) 2.47 x10^3/uL (1.8-6.8); NEUTROPHILS % (AUTO) 60 % (42-75); PLATELET COUNT 175 x10^3/uL (130-400); RED BLOOD COUNT 2.83 x10^6/uL (4.38-5.82); RED CELL DISTRIBUTION WIDTH 17.2 % (9.4-14.8)
--- NOTE | 2019-07-16 05:44 | NUR ---
PT MEDICATED PER SEP. RESTING ON GURNEY WATCHING TV. CALL LIGHT WITHIN REACH, BED IN LOW POSITION, ALL SAFETY MEASURES IN PLACE.
[2019-07-16 05:56] LABS: ANION GAP 7 mmol/L (5-15); CALCIUM 7.9 mg/dL (8.5-10.1); CHLORIDE 102 mmol/L (98-107); CREATININE 8.44 mg/dL (0.7-1.3)
--- NOTE | 2019-07-16 06:47 | NUR ---
MEAL TRAY AND HOSPITAL BED ORDERED
--- NOTE | 2019-07-16 07:00 | NUR ---
REPORT RECEIVED FROM AISHA SANCHEZ.
[2019-07-16] MEDS ORDERED: LIDOCAINE 1%, 10ML ONE (07:27)
[2019-07-16] MEDS ORDERED: HYDROmorphone 1 MG/ML, 1ML INJ ONE ×3 (07:32→16:06)
--- NOTE | 2019-07-16 07:36 | NUR ---
PT MEDICATED WITH 1MG DILAUDID FOR L ABD/RIB PAIN THAT PATIENT ATTRIBUTES TO BEING "FLUID OVERLOADED". PT TO IR FOR PARACENTESIS AT THIS TIME.
--- NOTE | 2019-07-16 07:39 | NUR ---
PATIENT TO RADIOLOGY.
[2019-07-16] MEDS: SEVELAMER CARBONATE 800MG TAB PO SCH ×5 (08:15→17:34)
[2019-07-16] MEDS ORDERED: CARVEDILOL 3.125 MG TABLET ONE (08:22)
[2019-07-16] MEDS ORDERED: ASPIRIN 81 MG TABLET EC ONE (08:22)
[2019-07-16] MEDS ORDERED: ENOXAPARIN 100 MG/ML ONE (08:22)
[2019-07-16] MEDS: ASPIRIN 81 MG TABLET EC PO SCH (08:25)
[2019-07-16] MEDS: CARVEDILOL 6.25 MG TABLET PO SCH ×2 (08:25→21:00)
--- NOTE | 2019-07-16 08:34 | NUR ---
PATIENT MEDICATED PER EMAR.
--- NOTE | 2019-07-16 08:49 | NUR ---
DIET TRAY DELIVERED
--- NOTE | 2019-07-16 08:55 | NUR ---
TELEPHONE CONVERSATION WITH PHARMACY TO CONFIRM LOVENOX DOSE 0.6ML/60 MG.
[2019-07-16] MEDS ORDERED: Enoxaparin 1 mg/kg protocol SQ SCH (09:00)
--- NOTE | 2019-07-16 09:14 | NUR ---
MESSAGE LEFT FOR REGARDING PATIENTS BP 182/82.
--- NOTE | 2019-07-16 10:18 | NUR ---
PATIENT TRANSFERED TO HOSPITAL BED.
--- NOTE | 2019-07-16 11:48 | NUR ---
PATIENT AMBULATED TO COMMODE WITH A STEADY GAIT.
--- NOTE | 2019-07-16 11:52 | NUR ---
DIET TRAY ORDERED.
[2019-07-16] MEDS ORDERED: ARANESP 100 MCG/ML **ESRD SQ SCH (12:00)
--- NOTE | 2019-07-16 14:11 | NUR ---
US IN ROOM NOW.
--- NOTE | 2019-07-16 16:36 | NUR ---
PATIENT RESTING ON GURNEY. DENIES FURTHER NEEDS AT THIS TIME.
[2019-07-16] MEDS ORDERED: WARFARIN 5 MG TABLET PO-COUM ONE (21:00)
[2019-07-16] MEDS ORDERED: WARFARIN 2 MG TABLET PO-COUM ONE (21:00)
[2019-07-16] MEDS ORDERED: HEPARIN 5,000 UNITS/ML, 1ML IV ONE (21:00)
[2019-07-17 00:54] VITALS: BP 161/76
[2019-07-17] MEDS: HYDROmorphone 2 MG/ML, 1ML IVPush PRN ×7 (01:05→23:53)
[2019-07-17] MEDS: DIPHENHYDRAMINE 25 MG CAPSULE PO SCH ×5 (01:10→20:25)
[2019-07-17] MEDS: HEPARIN 25,000 UNITS/500ML PMX 500 ML IV PRN (01:14)
[2019-07-17 04:33] VITALS: BP 117/63
[2019-07-17] MEDS: SEVELAMER CARBONATE 800MG TAB PO SCH ×3 (07:00→16:00)
[2019-07-17 07:41] LABS: ALBUMIN 2.1 g/dL (3.4-5.0); ANION GAP 6 mmol/L (5-15); CALCIUM 7.7 mg/dL (8.5-10.1); CHLORIDE 103 mmol/L (98-107)
[2019-07-17 07:42] LABS: BASOPHILS # (AUTO) 0.01 x10^3/uL (0-0.1); BASOPHILS % (AUTO) 0 % (0-1); EOSINOPHILS # (AUTO) 0.15 x10^3/uL (0-0.4); EOSINOPHILS % (AUTO) 5 % (1-7); LYMPHOCYTES # (AUTO) 0.78 x10^3/uL (1-3.4); LYMPHOCYTES % (AUTO) 24 % (22-44); MD NO; MEAN CORPUSCULAR HEMOGLOBIN 30.6 pg (27.5-34.5); MEAN CORPUSCULAR HGB CONC 32.9 g/dL (33.2-36.2); MEAN CORPUSCULAR VOLUME 93.1 fL (81-97); MEAN PLATELET VOLUME 7.5 fL (7.4-10.4); MONOCYTES # (AUTO) 0.25 x10^3/uL (0.2-0.8); MONOCYTES % (AUTO) 8 % (2-9); NEUTROPHILS # (AUTO) 2.12 x10^3/uL (1.8-6.8); NEUTROPHILS % (AUTO) 64 % (42-75); PLATELET COUNT 131 x10^3/uL (130-400); RED BLOOD COUNT 2.89 x10^6/uL (4.38-5.82); RED CELL DISTRIBUTION WIDTH 17.2 % (9.4-14.8)
[2019-07-17 07:45] LABS: % IRON SATURATION 18 % (20-55); ALKALINE PHOSPHATASE 109 U/L (45-117); BILIRUBIN,TOTAL 0.4 mg/dL (0.2-1.0); CREATININE 5.48 mg/dL (0.7-1.3); IRON LEVEL 24 mcg/dL (65-175); TOTAL IRON BINDING CAPACITY 134 mcg/dL (250-450); TOTAL PROTEIN 6.4 g/dL (6.4-8.2)
[2019-07-17 07:46] LABS: ALANINE AMINOTRANSFERASE < 6 U/L (12-78)
[2019-07-17 08:04] LABS: INTERNATIONAL NORMALIZED RATIO 1.24 (0.93-1.1); PROTHROMBIN TIME 12.9 Seconds (9.6-11.5)
[2019-07-17 08:24] VITALS: BP 129/65
[2019-07-17] MEDS: ASPIRIN 81 MG TABLET EC PO SCH (08:41)
[2019-07-17] MEDS: CARVEDILOL 6.25 MG TABLET PO SCH ×2 (08:42→20:22)
[2019-07-17] MEDS: HEPARIN 5,000 UNITS/ML, 1ML IV PRN ×2 (09:50→19:08)
[2019-07-17] MEDS ORDERED: IRON SUCROSE COMPLEX 100MG/5ML IV ONE (13:00)
[2019-07-17 15:20] VITALS: BP 133/64
[2019-07-17] MEDS ORDERED: WARFARIN 3 MG TABLET PO-COUM ONE (18:00)
[2019-07-17] MEDS ORDERED: IRON SUCROSE COMPLEX 100MG/5ML ONE (18:25)
[2019-07-17 18:43] VITALS: BP 144/66
[2019-07-18 00:50] VITALS: BP 134/68
[2019-07-18 02:20] LABS: INTERNATIONAL NORMALIZED RATIO 1.56 (0.93-1.1); PROTHROMBIN TIME 16.1 Seconds (9.6-11.5)
[2019-07-18] MEDS: HYDROmorphone 2 MG/ML, 1ML IVPush PRN ×6 (02:48→20:58)
[2019-07-18] MEDS: HEPARIN 5,000 UNITS/ML, 1ML IV PRN ×3 (02:50→18:00)
[2019-07-18] MEDS: HEPARIN 25,000 UNITS/500ML PMX 500 ML IV PRN (02:51)
[2019-07-18 05:13] VITALS: BP 124/64
[2019-07-18] MEDS: DIPHENHYDRAMINE 25 MG CAPSULE PO SCH ×4 (05:39→20:55)
[2019-07-18] MEDS: SEVELAMER CARBONATE 800MG TAB PO SCH ×4 (07:00→20:50)
[2019-07-18 08:59] VITALS: BP 134/71
[2019-07-18] MEDS: ASPIRIN 81 MG TABLET EC PO SCH (09:26)
[2019-07-18] MEDS: CARVEDILOL 6.25 MG TABLET PO SCH ×2 (09:26→19:55)
[2019-07-18 15:47] VITALS: BP 101/56
[2019-07-18] MEDS ORDERED: WARFARIN 3 MG TABLET PO-COUM ONE (18:00)
[2019-07-18 19:34] VITALS: BP 88/49
[2019-07-19] MEDS: HEPARIN 25,000 UNITS/500ML PMX 500 ML IV PRN (00:28)
[2019-07-19] MEDS: HEPARIN 5,000 UNITS/ML, 1ML IV PRN (00:29)
[2019-07-19 02:07] VITALS: BP 99/49
[2019-07-19] MEDS: DIPHENHYDRAMINE 25 MG CAPSULE PO SCH (03:23)
[2019-07-19 04:15] VITALS: BP 115/62
[2019-07-19] MEDS: HYDROmorphone 2 MG/ML, 1ML IVPush PRN ×3 (04:17→12:08)
[2019-07-19 07:05] VITALS: BP 147/72
[2019-07-19 07:11] LABS: INTERNATIONAL NORMALIZED RATIO 4.54 (0.93-1.1)
[2019-07-19] MEDS ORDERED: HYDROmorphone 1 MG/ML, 1ML INJ ONE ×2 (07:57→11:59)
[2019-07-19] MEDS ORDERED: HOLD COUMADIN MC PRN (08:00)
[2019-07-19] MEDS: SEVELAMER CARBONATE 800MG TAB PO SCH (08:03)
[2019-07-19 14:16] VITALS: BP 176/79
== END 2019-07-19 15:08 | disposition home or self-care (01) ==
LOC: ED 22:09 → EDIP 23:30 → 4WST 07-16 17:10
PROVIDERS: ADMIT Family Medicine; ATTEND Family Medicine
PROC: 0W9G3ZZ Drainage of Peritoneal Cavity, Percutaneous Approach (ICD-10-PCS; principal; 2019-07-16)
PROC: 5A1D70Z Performance of Urinary Filtration, Intermittent, Less than 6 Hours Per Day (ICD-10-PCS; 2019-07-16)
PROC: 5A1D70Z Performance of Urinary Filtration, Intermittent, Less than 6 Hours Per Day (ICD-10-PCS; 2019-07-17)
PROC: 5A1D70Z Performance of Urinary Filtration, Intermittent, Less than 6 Hours Per Day (ICD-10-PCS; 2019-07-19)
DX: R18.8 Other ascites (principal); E43 Unspecified severe protein-calorie malnutrition; I13.2 Hypertensive heart and chronic kidney disease with heart failure and with stage 5 chronic kidney disease, or end stage renal disease; E11.22 Type 2 diabetes mellitus with diabetic chronic kidney disease; I82.402 Acute embolism and thrombosis of unspecified deep veins of left lower extremity; N18.6 End stage renal disease; E11.51 Type 2 diabetes mellitus with diabetic peripheral angiopathy without gangrene; I07.1 Rheumatic tricuspid insufficiency; I16.0 Hypertensive urgency; E87.5 Hyperkalemia; D63.1 Anemia in chronic kidney disease; E78.5 Hyperlipidemia, unspecified; G89.29 Other chronic pain; H54.61 Unqualified visual loss, right eye, normal vision left eye; I27.20 Pulmonary hypertension, unspecified; I35.8 Other nonrheumatic aortic valve disorders; I50.9 Heart failure, unspecified; J98.11 Atelectasis; Z99.2 Dependence on renal dialysis; N25.0 Renal osteodystrophy; Z79.01 Long term (current) use of anticoagulants; Z82.49 Family history of ischemic heart disease and other diseases of the circulatory system; Z83.3 Family history of diabetes mellitus; Z86.14 Personal history of Methicillin resistant Staphylococcus aureus infection; Z86.718 Personal history of other venous thrombosis and embolism; Z89.511 Acquired absence of right leg below knee; Z91.19 Patient's noncompliance with other medical treatment and regimen; Z95.2 Presence of prosthetic heart valve; Z68.21 Body mass index [BMI] 21.0-21.9, adult; Z88.8 Allergy status to other drugs, medicaments and biological substances
CPT/HCPCS: 36415; 49083; 71045; 74176; 76700; 80048; 80053; 82306; 82728; 83540; 83550; 83690; 83735; 83880; 83970; 84100; 84550; 85025; 85520; 85610; 93005; 93306; 96374; 99285; G0378; J0610; J0882; J1170; J1644; J1756; J2405; Q0163

== ENCOUNTER 2019-07-22 21:28 | Emergency (ER) | payer SELFPAY ==
[~2019-07-22] VITALS: Ht 177.8 cm; Wt 64.2 kg
[2019-07-22 21:29] VITALS: BP 155/74
--- NOTE | 2019-07-22 21:56 | NUR ---
PT REFUSING VITALS, PT STS "FORGET THIS MY BROTHER WILL JUST COME GET ME. GET THIS STUFF OFF OF ME I WANT TO LEAVE." PT REFUSING TO SIGN AMA FORM STS "I WILL NOT SIGN ANYTHING HERE."
== END 2019-07-22 22:06 | disposition left against medical advice (07) ==
LOC: ED 22:00
DX: G89.29 Other chronic pain (principal); M79.662 Pain in left lower leg; M79.10 Myalgia, unspecified site; I11.0 Hypertensive heart disease with heart failure; I50.9 Heart failure, unspecified; E11.9 Type 2 diabetes mellitus without complications; E78.5 Hyperlipidemia, unspecified; Z90.49 Acquired absence of other specified parts of digestive tract; Z87.891 Personal history of nicotine dependence; Z89.512 Acquired absence of left leg below knee
CPT/HCPCS: 93005; 99283